=== PATIENT | female | born 1990 | race Two or more races ===

== ENCOUNTER 2019-03-18 07:57 | Inpatient (IN) | payer SELFPAY ==
[2019-03-18] VITALS (7 sets, daily range): BP systolic 115–124; BP diastolic 66–90
[~2019-03-18] VITALS: Ht 162.6 cm; Wt 66.7 kg
[~2019-03-18 07:57] MED LIST: GLUCOPHAGE1000 MG ORAL
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
[2019-03-18] MEDS ORDERED: Ketorolac 30mg Inj IV ONE (08:15)
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
--- NOTE | 2019-03-18 08:56 | Diagnostic Imaging Report ---
Indication: Headache and trauma Technique: Contiguous 5 mm thick transaxial imaging of the head obtained in a Siemens Sensation [address] scanner. Soft tissue and bone windows generated. Automatic Exposure Control was utilized. Total Dose length Product (DLP): [address] Dose Index Volume (CTDIvol): 70.38,28.19 mGy Comparison: none Findings: The size and configuration of the cortical sulci, basal cisterns, and ventricles are within normal limits for age. There is no mass effect, midline shift, or edema identified. There is no evidence of acute hemorrhage or abnormal intra-axial or extra-axial fluid collections. There is a frontal and facial soft tissue swelling. Correlate clinically. Maxillofacial CT was also done. Impression: No mass effect, edema or acute bleed. The CT scanner at [facility] is accredited by the [employer] and the scans are performed using dose optimization techniques as appropriate to a performed exam including Automatic Exposure control.
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
--- NOTE | 2019-03-18 09:20 | NUR ---
ED Nurse Note: pt voiding on bedpan urine sent. toradol held pending hcg results.
[2019-03-18 09:43] LABS: HEMOGLOBIN 11.5 G/DL (12.0-16.0); MEAN CORPUSCULAR VOLUME 86 FL (80-99); PLATELET COUNT 443 K/UL (150-450); RED BLOOD COUNT 3.98 M/UL (4.20-5.40); RED CELL DISTRIBUTION WIDTH 12.8 % (11.6-14.8)
[2019-03-18 09:47] LABS: ANION GAP 17 mmol/L (5-15); BLOOD UREA NITROGEN 27 mg/dL (7-18); CALCIUM 9.8 MG/DL (8.5-10.1); CARBON DIOXIDE 22 MMOL/L (21-32); CHLORIDE 94 MMOL/L (98-107); CREATININE 1.1 MG/DL (0.55-1.30); POTASSIUM 3.2 MMOL/L (3.5-5.1); SODIUM 132 MMOL/L (136-145)
--- NOTE | 2019-03-18 09:52 | NUR ---
ED Nurse Note: pt medicated after neg hcg test. master automotive technician here to finish rad studies. pt sleeping with even reg resp. awakens easily to verbal stimuli
--- NOTE | 2019-03-18 10:30 | NUR ---
ED Nurse Note: lactic acid sent and bld cx x2 sent. no new s/s sleeping in room with even resp.
[2019-03-18] MEDS ORDERED: cefTRIAXone 1 GM in NS 55 ML IVPB ONE (10:45)
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
--- NOTE | 2019-03-18 12:19 | Diagnostic Imaging Report ---
Indication: Dyspnea Comparison: None A single view chest radiograph was obtained. Findings: Cardiomediastinal appearance is within normal limits for age. The lungs are clear. Pulmonary vascularity is appropriate. The diaphragmatic contour is smooth and costophrenic angles are sharp. No pleural effusions are identified. The bones are unremarkable. Impression: No acute findings
--- NOTE | 2019-03-18 13:00 | NUR ---
ED Nurse Note: dr zamudio here to eval pt. pt awakes to verbal stimuli and then back to sleep with even reg resp. no changes in mental status. vss
[2019-03-18 13:41] LABS: APPEARANCE,URINE CLEAR; BILIRUBIN, URINE NEGATIVE (NEGATIVE); COLOR,URINE PALE YELLOW; GLUCOSE, URINE (UA) 4+ (NEGATIVE); KETONES,URINE 3+ (NEGATIVE); LEUKOCYTE ESTERASE ,URINE NEGATIVE (NEGATIVE); NITRITE,URINE NEGATIVE (NEGATIVE); PH,URINE 6.5 (4.5-8.0); PROTEIN,URINE 3+ (NEGATIVE); UROBILINOGEN,URINE NORMAL MG/DL (0.0-1.0)
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
--- NOTE | 2019-03-18 14:24 | NUR ---
ED Nurse Note: pt prepared for telemtry admission. remains a/ox4 when awakened, cooperative with care. admisssion swabs sent as per protocol with hi risk population.
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
--- NOTE | 2019-03-18 15:00 | NUR ---
NURSE NOTES: Attempted to contact Dr. Bautista.
--- NOTE | 2019-03-18 15:30 | NUR ---
NURSE NOTES: Contact Dr. Ramsay. Dr. Ramsay is aware and orders will be placed.
--- NOTE | 2019-03-18 15:30 | NUR ---
NURSE NOTES: Notify Dr. Ramsay in patient's heart rate is 120s. Received an order. Dr. Ramsay is aware.
[2019-03-18] MEDS: Morphine Sulfate 2mg/ml Inj(IV/IM USE ONLY) IVP PRN ×2 (15:43→19:52)
[2019-03-18] MEDS ORDERED: Nitroglycerin Subl 0.4mg tab SL PRN (15:45)
[2019-03-18] MEDS ORDERED: Miralax 17gm pkt ORAL PRN (15:45)
[2019-03-18] MEDS ORDERED: Albuterol/Ipratropium 3ml neb HHN PRN (15:45)
[2019-03-18] MEDS ORDERED: Vancomycin 1.25gm Premix IVPB ONE (16:30)
[2019-03-18] MEDS: NovoLOG Insulin Flexpen SUBQ SCH ×2 (17:43→21:27)
--- NOTE | 2019-03-18 19:45 | NUR ---
HAND-OFF: Report given to ROMY Heredia. Patient is resting in bed. Endorsed about the potassium 3.2 and to f/u with Dr. Ramsay.
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
[2019-03-18] MEDS: Heparin 5000 units/ml inj SUBQ SCH (21:00)
[2019-03-18] MEDS: Cefepime HCl 2 GM in D5W 110 ML IV SCH (21:21)
[2019-03-19] VITALS: BP 129/82
--- NOTE | 2019-03-19 | NUR ---
NURSE NOTES: pt sleeping. no change in condition. no s/s of pain. will continue to monitor for any change in condition.
[2019-03-19] MEDS: Morphine Sulfate 2mg/ml Inj(IV/IM USE ONLY) IVP PRN ×5 (01:59→21:04)
[2019-03-19 04:00] VITALS: BP 116/73
[2019-03-19] MEDS ORDERED: Vancomycin 1 GM in D5W 275 ML IVPB SCH (04:00)
--- NOTE | 2019-03-19 04:00 | NUR ---
NURSE NOTES: pt sleeping, no change in condition. will continue to monitor for any change in condition.
[2019-03-19] MEDS: NovoLOG Insulin Flexpen SUBQ SCH ×4 (05:47→22:18)
--- NOTE | 2019-03-19 06:40 | NUR ---
NURSE NOTES: pt remains stable, no change in condition. bed locked and lowest position, bedside rail up x 2. call light and personal belongings within pt's reach. will endorse plan of care to incoming nurse.
[2019-03-19 07:20] LABS: HEMATOCRIT 27.2 % (37.0-47.0); HEMOGLOBIN 9.2 G/DL (12.0-16.0); MEAN CORPUSCULAR VOLUME 85 FL (80-99); PLATELET COUNT 331 K/UL (150-450); RED CELL DISTRIBUTION WIDTH 13.1 % (11.6-14.8); WHITE BLOOD COUNT 20.4 K/UL (4.8-10.8)
--- NOTE | 2019-03-19 07:28 | NUR ---
NURSE NOTES: Report received from ROMY Heredia. Patient sleeping, easily awakened by name. In RA denies SOB Facial swelling noted. Unable to open both eyes at this time. Able to raise hands. Will continue to monitor. Bed on lowest position, side rails upx2, brakes engaged. Call light within easy reach.
--- NOTE | 2019-03-19 07:47 | NUR ---
HAND-OFF: Report given to ROMY Mcdermott.
[2019-03-19 08:00] VITALS: BP 121/74
[2019-03-19 08:03] LABS: ALANINE AMINOTRANSFERASE 36 U/L (12-78); ALBUMIN 1.8 G/DL (3.4-5.0); ALBUMIN/GLOBULIN RATIO 0.4 (1.0-2.7); ALKALINE PHOSPHATASE 136 U/L (46-116); ANION GAP 12 mmol/L (5-15); ASPARTATE AMINO TRANSFERASE 40 U/L (15-37); BILIRUBIN,TOTAL 0.8 MG/DL (0.2-1.0); BLOOD UREA NITROGEN 18 mg/dL (7-18); CALCIUM 8.3 MG/DL (8.5-10.1); CARBON DIOXIDE 22 MMOL/L (21-32); CHLORIDE 99 MMOL/L (98-107); CREATININE 0.8 MG/DL (0.55-1.30); POTASSIUM 2.9 MMOL/L (3.5-5.1); SODIUM 133 MMOL/L (136-145)
--- NOTE | 2019-03-19 08:45 | NUR ---
NURSE NOTES: Refused to open eyes. Unable to access.
[2019-03-19] MEDS: Heparin 5000 units/ml inj SUBQ SCH ×2 (09:00→21:02)
[2019-03-19] MEDS: Cefepime HCl 2 GM in D5W 110 ML IV SCH (09:12)
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
--- NOTE | 2019-03-19 10:10 | NUR ---
NURSE NOTES: Helped to the restroom. Was able to walk with supervision and guidance. Not opening eyes yet. Cleaned own eyes with warm water. Still insists opening eyes is a problem. "I can't open them! I tried..." Dr. Ramsay aware.
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
[2019-03-19 12:00] VITALS: BP 131/83
--- NOTE | 2019-03-19 12:10 | NUR ---
[facility]ACTICAL NURSING [facility] [employer] HEL[employer] SI:CEPHALOHEMATOMA . CELLULITIS . SEPSIS VS: BP 141/79, P 116, T 100.6, RR 20, SpO2 98 WBC 20.4, RBC 3.20, H&H 9.2/27.2, NA 133, K 2.9 IS:TYLENOL 650mg BACTRIM-DS 1tab MORPHINE SULFATE 2mg IVP NOVOLOG SUBQ HEPARIN SUBQ AMOXICILLIN 875mg MED/SURG STATUS
--- NOTE | 2019-03-19 15:01 | NUR ---
NURSE NOTES: Informed Dr. Ramsay regarding Pt's lab. No orders at this time.
[2019-03-19 16:00] VITALS: BP 141/79
--- NOTE | 2019-03-19 16:00 | History and Physical Report ---
DATE OF ADMISSION: 03/18/2019 DATE AND TIME SEEN: 03/19/2019 at 12 noon. CONSULTANTS: 1. Thiago King M.D. 2. Kevin Ramsay M.D. CHIEF COMPLAINT: Facial cellulitis and swelling. BRIEF HISTORY: This is a 28-year-old female, who lives at home, presents with one-day history of increased swelling, came to [facility], diagnosed with the above, admitted to telemetry for further care. Currently, sleeping in bed. No complaint. REVIEW OF SYSTEMS: No chest pain. No shortness of breath. No nausea. PAST MEDICAL HISTORY: Diabetes and anemia. PAST SURGICAL HISTORY: . ALLERGIES: Denies. MEDICATIONS: Include potassium, vancomycin, cefepime, albuterol, Tylenol, and morphine. SOCIAL HISTORY: Positive smoking. No alcohol. Positive methamphetamine use two days ago. PHYSICAL EXAMINATION: GENERAL: Calm in bed, oriented x2, in no acute distress. VITAL SIGNS: Temperature is 100, pulse 105, respirations 18, and blood pressure 121/74. CARDIOVASCULAR: No murmur. LUNGS: Distant and clear. ABDOMEN: Bowel sound positive. Nontender. Nondistended. EXTREMITIES: No cyanosis, clubbing, or edema. SKIN: Facial swelling noted. Bilateral face shows swelling, orbital eyelid almost shut. Slight redness around periorbital area. LABORATORY AND DIAGNOSTIC DATA: White count 20, hemoglobin and hematocrit 9.2/27, otherwise CBC normal. BMP shows sodium 133, potassium 2.9, glucose 308. Albumin 1.8. Urinalysis - 3+ protein, 4+ glucose. Urine tox positive for marijuana and amphetamine. ASSESSMENT: 1. Diabetes. 2. Hyperglycemia. 3. Facial cellulitis. 4. Leukocytosis. 5. Swelling. 6. Malnutrition. PLAN: 1. PT and dietary evaluation. 2. CBC and BMP in morning. 3. Antibiotics per Infectious Disease. 4. We will continue to follow the patient. Arjun Bautista D.O. DR: RENETTA JOB#: [id number] CC:
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
--- NOTE | 2019-03-19 19:25 | NUR ---
HAND-OFF: Report given to ROMY Mackey. Patient sleeping comfortably. Denies pain at this time.
--- NOTE | 2019-03-19 19:30 | NUR ---
NURSE NOTES: Received report from ROMY Ryan. Pt is awake and resting in bed. In no acute distress. IV line intact and patent. Bed in lowest position, call light within reach. Will continue plan of care.
[2019-03-19 20:00] VITALS: BP 131/86
--- NOTE | 2019-03-19 20:20 | NUR ---
NURSE NOTES: Received patient at 2020 from 2E Telemetry unit bed 206-2 to 4E bed 416-1. Report was given from ROMY Mackey. Patient verbalized with facial grimacing and crying that she is in pain. Patient is otherwise alert, awake, and verbally responsive to make her needs known. Patient's face is swollen, bruised, with some abrasions on the forehead. Patient is breathing rapidly but evenly without signs of respiratory distress, SOB, or discomfort. Pain will be managed as ordered as soon as the medical records are transferred to the unit. Meanwhile, patient is given reassurance to be given proper pain management as orders become available on the system. Bed is placed at the lowest level with alarms and brakes on. Side rails up x 2 for safety. Patient is offered non-pharmacological interventions such as distraction, rest, and positional change. Call light is placed within reach for any other assistance needed. Will continue to monitor.
--- NOTE | 2019-03-19 20:22 | NUR ---
TRANSFER TO FLOOR: Patient transferred to [address] [place] [address], room 416-1, per MD order. Report given to ROMY Fisher and ROMY Collazo. Belongings and medications given to RN. Pt in stable condition at the time of transfer.
[2019-03-19] MEDS ORDERED: Albuterol/Ipratropium 3ml neb HHN PRN (20:30)
[2019-03-19] MEDS ORDERED: Miralax 17gm pkt ORAL PRN (20:30)
[2019-03-19] MEDS ORDERED: Nitroglycerin Subl 0.4mg tab SL PRN (20:30)
[2019-03-19] MEDS ORDERED: Dextrose 50% 25ml Syringe IV PRN (20:30)
[2019-03-19] MEDS: Bactrim-DS 1 tab ORAL SCH (20:58)
[2019-03-19] MEDS: Augmentin 875mg Tab ORAL SCH (20:59)
[2019-03-19] MEDS ORDERED: Augmentin 875mg Tab ORAL SCH (21:00)
[2019-03-19] MEDS ORDERED: Bactrim-DS 1 tab ORAL SCH (21:00)
[2019-03-20] VITALS: BP 128/87
[2019-03-20] MEDS: Morphine Sulfate 2mg/ml Inj(IV/IM USE ONLY) IVP PRN ×5 (03:14→23:19)
--- NOTE | 2019-03-20 03:27 | NUR ---
NURSE NOTES: Patient is self-positioned on the bed with bed placed at the lowest level with alarm and brake on for safety. Side rails are up x 2. Patient is breathing unlabored and evenly without signs of respiratory complications or SOB. Patient's pain is addressed appropriately in timely manner. Other non-pharmacological measures are offered such as cooling measures, position change, distraction, and rest. Patient experienced episodes of elevated temperature. Pharmacological measures and non-pharmacological measures are applied to manage temperature. Patient tolerated all interventions well. Call light is placed within reach for any assistance needed. Will continue to monitor.
[2019-03-20 04:00] VITALS: BP 132/88
[2019-03-20] MEDS: NovoLOG Insulin Flexpen SUBQ SCH ×6 (06:15→20:19)
[2019-03-20 06:30] LABS: BASOPHILS % (AUTO) 0.8 % (0.0-2.0); EOSINOPHILS % (AUTO) 1.1 % (0.0-3.0); HEMATOCRIT 27.2 % (37.0-47.0); LYMPHOCYTES % (AUTO) 18.1 % (20.0-45.0); MEAN CORPUSCULAR VOLUME 85 FL (80-99); MONOCYTES % (AUTO) 5.7 % (1.0-10.0); NEUTROPHILS % (AUTO) 74.3 % (45.0-75.0); PLATELET COUNT 351 K/UL (150-450); RED BLOOD COUNT 3.21 M/UL (4.20-5.40); RED CELL DISTRIBUTION WIDTH 12.8 % (11.6-14.8); WHITE BLOOD COUNT 15.9 K/UL (4.8-10.8)
[2019-03-20 06:46] LABS: ANION GAP 10 mmol/L (5-15); BLOOD UREA NITROGEN 11 mg/dL (7-18); CALCIUM 8.7 MG/DL (8.5-10.1); CARBON DIOXIDE 26 MMOL/L (21-32); CHLORIDE 102 MMOL/L (98-107); CREATININE 0.9 MG/DL (0.55-1.30); POTASSIUM 3.4 MMOL/L (3.5-5.1); SODIUM 138 MMOL/L (136-145)
--- NOTE | 2019-03-20 06:53 | General Progress Note ---
Assessment/Plan Problem List: (1) Diabetes mellitus out of control ICD Codes: E11.65 - Type 2 diabetes mellitus with hyperglycemia SNOMED: 96160251, 853779582 (2) Sepsis ICD Codes: A41.9 - Sepsis, unspecified organism SNOMED: 59494700 (3) Cephalohematoma ICD Codes: P12.0 - Cephalhematoma due to injury SNOMED: 16168454 (4) Cellulitis ICD Codes: L03.90 - Cellulitis, unspecified SNOMED: 471744824 Assessment/Plan: add Levemir 18 units daily add Novolog 6 units ac tid continue NISS ac / hs Subjective Allergies: Coded Allergies: No Known Allergies (Unverified , 03/18/19) All Systems: reviewed and negative except above Subjective events noted interval notes reviewed Item Value Date Time Bedside Blood Glucose 342 mg/dl H 03/20/19 0630 Bedside Blood Glucose 297 mg/dl H 03/19/19 2218 Bedside Blood Glucose 335 mg/dl H 03/19/19 1707 Bedside Blood Glucose 265 mg/dl H 03/19/19 1215 Bedside Blood Glucose 309 mg/dl H 03/19/19 0630 Objective Last 24 Hour Vital Signs Date Time Temp Pulse Resp B/P (MAP) Pulse Ox O2 Delivery O2 Flow Rate FiO2 03/20/19 04:00 98.8 95 16 132/88 (103) 100 03/20/19 03:28 98 Room Air 21 03/20/19 00:00 99.2 113 16 128/87 (101) 98 03/19/19 23:02 99.2 03/19/19 21:00 Room Air 03/19/19 20:00 100.6 116 16 131/86 (101) 100 03/19/19 16:00 99.0 110 18 141/79 (99) 100 03/19/19 12:00 98.3 107 20 131/83 (99) 98 03/19/19 12:00 105 03/19/19 09:00 Room Air 03/19/19 08:00 106 03/19/19 08:00 100.0 105 18 121/74 (90) 100 03/19/19 07:44 97 Room Air 21 Intake and Output 03/19/19 03/20/19 18:59 06:59 Intake Total 600 ml Output Total 400 ml Balance 200 ml Intake Oral 600 ml Output Urine Total 400 ml # Voids 3 Laboratory Tests 03/20/19 05:15: White Blood Count 15.9H, Red Blood Count 3.21L, Hemoglobin 9.0L, Hematocrit 27.2L, Mean Corpuscular Volume 85, Mean Corpuscular Hemoglobin 28.0, Mean Corpuscular Hemoglobin Concent 33.1, Red Cell Distribution Width 12.8, Platelet Count 351, Mean Platelet Volume 6.4L, Neutrophils (%) (Auto) 74.3, Lymphocytes ( %) (Auto) 18.1L, Monocytes (%) (Auto) 5.7, Eosinophils (%) (Auto) 1.1, Basophils (%) (Auto) 0.8, Sodium Level 138, Potassium Level 3.4L, Chloride Level 102, Carbon Dioxide Level 26, Anion Gap 10, Blood Urea Nitrogen 11, Creatinine 0.9, Estimat Glomerular Filtration Rate > 60, Glucose Level 315H, Calcium Level 8.7 Height (Feet): 5 Height (Inches): 4.00 Weight (Pounds): 147 General Appearance: no apparent distress Cardiovascular: normal rate Respiratory/Chest: lungs clear Abdomen: normal bowel sounds Pelvis: normal external exam Objective Current Medications Medications (Trade) Dose Ordered Sig/Jazmyn Route PRN Reason Start Time Stop Time Status Last Admin Dose Admin Acetaminophen (Tylenol) 650 mg Q4H PRN ORAL fever (temp>100.5F) 03/19/19 20:30 04/17/19 20:29 03/19/19 22:32 Albuterol/ Ipratropium (Albuterol/ Ipratropium) 3 ml Q4H PRN HHN Shortness of Breath 03/19/19 20:30 03/24/19 20:29 Amoxicillin/ Clavulanate Potassium (Augmentin) 875 mg EVERY 12 HOURS ORAL 03/19/19 21:00 03/26/19 20:59 03/19/19 20:59 Dextrose (Dextrose 50%) 25 ml Q30M PRN IV Hypoglycemia 03/19/19 20:30 04/18/19 20:27 Dextrose (Dextrose 50%) 50 ml Q30M PRN IV hypoglycemia 03/19/19 20:30 04/18/19 20:29 Heparin Sodium (Porcine) (Heparin 5000 units/ml) 5,000 units EVERY 12 HOURS SUBQ 03/19/19 21:00 7/24/19 20:59 03/19/19 21:02 Insulin Aspart (NovoLOG) BEFORE MEALS AND HS SUBQ 03/19/19 21:00 04/17/19 16:29 03/20/19 06:15 Morphine Sulfate (Morphine Sulfate) 2 mg Q4H PRN IVP Moderate Pain (Pain Scale 4-6) 03/19/19 21:00 03/26/19 20:59 03/20/19 03:14 Nitroglycerin (Ntg) 0.4 mg Q 5 MINS PRN SL Prn Chest Pain 03/19/19 20:30 04/17/19 15:44 Ondansetron HCl (Zofran) 4 mg Q6H PRN IVP Nausea & Vomiting 03/19/19 20:30 04/17/19 20:29 Polyethylene Glycol (Miralax) 17 gm DAILYPRN PRN ORAL Constipation 03/19/19 20:30 04/18/19 20:29 Temazepam (Restoril) 15 mg HSPRN PRN ORAL Insomnia 03/19/19 20:30 03/26/19 20:29 03/19/19 23:53 Trimethoprim/ Sulfamethoxazole (Bactrim-DS) 1 tab Q12HR ORAL 03/19/19 21:00 03/26/19 20:59 03/19/19 20:58 Macario Lovell MD Mar 20, 2019 06:53
--- NOTE | 2019-03-20 07:19 | NUR ---
HAND-OFF: Report given to ROMY Aquino. Patient in stable condition.
--- NOTE | 2019-03-20 07:29 | NUR ---
NURSE NOTES: received report from ROMY Collazo&ROMY Fisher. patient in bed. A&O, verbally responsive. no respiratory distress noted. c/o pain on face and head. IV on RH intact. swollen eyes. no fever at this time. bed in the lowest position. call light within reach. alarm on. will provide plan of care.
[2019-03-20] MEDS: Bactrim-DS 1 tab ORAL SCH ×2 (09:21→20:14)
[2019-03-20] MEDS: Augmentin 875mg Tab ORAL SCH ×2 (09:21→20:13)
[2019-03-20] MEDS: Heparin 5000 units/ml inj SUBQ SCH ×2 (09:27→20:17)
[2019-03-20] MEDS: Levemir Flexpen SUBQ SCH (09:36)
--- NOTE | 2019-03-20 10:43 | Pulmonology Progress Note ---
Assessment/Plan Problems: (1) Cephalohematoma (2) Cellulitis Assessment/Plan symptomatic treatment abx as per ID pt still cant open her eyes. Subjective ROS Limited/Unobtainable: No Constitutional: Reports: no symptoms HEENT: Repors: no symptoms Allergies: Coded Allergies: No Known Allergies (Unverified , 03/18/19) Objective Last 24 Hour Vital Signs Date Time Temp Pulse Resp B/P (MAP) Pulse Ox O2 Delivery O2 Flow Rate FiO2 03/20/19 04:00 98.8 95 16 132/88 (103) 100 03/20/19 03:28 98 Room Air 21 03/20/19 00:00 99.2 113 16 128/87 (101) 98 03/19/19 23:02 99.2 03/19/19 21:00 Room Air 03/19/19 20:00 100.6 116 16 131/86 (101) 100 03/19/19 16:00 99.0 110 18 141/79 (99) 100 03/19/19 12:00 98.3 107 20 131/83 (99) 98 03/19/19 12:00 105 Intake and Output 03/19/19 03/20/19 18:59 06:59 Intake Total 600 ml Output Total 400 ml Balance 200 ml Intake Oral 600 ml Output Urine Total 400 ml # Voids 3 General Appearance: WD/WN HEENT: normocephalic, atraumatic Respiratory/Chest: chest wall non-tender, normal breath sounds Cardiovascular: normal peripheral pulses, regular rhythm Abdomen: normal bowel sounds, no organomegaly Genitourinary: normal external genitalia Extremities: no clubbing Skin: no lesions Microbiology Date/Time Source Procedure Growth Status 03/18/19 10:30 Blood Blood Culture - Preliminary NO GROWTH AFTER 24 HOURS Resulted 03/18/19 10:15 Blood Blood Culture - Preliminary NO GROWTH AFTER 24 HOURS Resulted 03/18/19 14:09 Nasal Nares MRSA Culture - Final NO METHICILLIN RESISTANT STAPH AUREUS... Complete 03/18/19 14:09 Rectal Mucosa VRE Culture - Final NO VANCOMYCIN RESISTANT ENTEROCOCCUS ... Complete 03/18/19 14:09 Rectal Mucosa - Final NO CARBAPENEM-RESISTANT ENTEROBACTERI... Complete Laboratory Tests 03/20/19 05:15: White Blood Count 15.9H, Red Blood Count 3.21L, Hemoglobin 9.0L, Hematocrit 27.2L, Mean Corpuscular Volume 85, Mean Corpuscular Hemoglobin 28.0, Mean Corpuscular Hemoglobin Concent 33.1, Red Cell Distribution Width 12.8, Platelet Count 351, Mean Platelet Volume 6.4L, Neutrophils (%) (Auto) 74.3, Lymphocytes ( %) (Auto) 18.1L, Monocytes (%) (Auto) 5.7, Eosinophils (%) (Auto) 1.1, Basophils (%) (Auto) 0.8, Sodium Level 138, Potassium Level 3.4L, Chloride Level 102, Carbon Dioxide Level 26, Anion Gap 10, Blood Urea Nitrogen 11, Creatinine 0.9, Estimat Glomerular Filtration Rate > 60, Glucose Level 315H, Calcium Level 8.7 Current Medications Medications (Trade) Dose Ordered Sig/Jazmyn Route PRN Reason Start Time Stop Time Status Last Admin Dose Admin Acetaminophen (Tylenol) 650 mg Q4H PRN ORAL fever (temp>100.5F) 03/19/19 20:30 04/17/19 20:29 03/20/19 09:34 Albuterol/ Ipratropium (Albuterol/ Ipratropium) 3 ml Q4H PRN HHN Shortness of Breath 03/19/19 20:30 03/24/19 20:29 Amoxicillin/ Clavulanate Potassium (Augmentin) 875 mg EVERY 12 HOURS ORAL 03/19/19 21:00 03/26/19 20:59 03/20/19 09:21 Dextrose (Dextrose 50%) 25 ml Q30M PRN IV Hypoglycemia 03/20/19 07:00 04/19/19 06:59 Dextrose (Dextrose 50%) 50 ml Q30M PRN IV Hypoglycemia 03/20/19 07:00 04/19/19 06:59 Heparin Sodium (Porcine) (Heparin 5000 units/ml) 5,000 units EVERY 12 HOURS SUBQ 03/19/19 21:00 04/17/19 20:59 03/20/19 09:27 Insulin Aspart (NovoLOG) BEFORE MEALS AND HS SUBQ 03/19/19 21:00 04/17/19 16:29 03/20/19 06:15 Insulin Aspart (NovoLOG) 6 units NOVOTIAC SUBQ 03/20/19 11:50 04/19/19 11:49 Insulin Detemir (Levemir) 18 units DAILY SUBQ 03/20/19 09:00 04/19/19 08:59 03/20/19 09:36 Morphine Sulfate (Morphine Sulfate) 2 mg Q4H PRN IVP Moderate Pain (Pain Scale 4-6) 03/19/19 21:00 03/26/19 20:59 03/20/19 07:37 Nitroglycerin (Ntg) 0.4 mg Q 5 MINS PRN SL Prn Chest Pain 03/19/19 20:30 04/17/19 15:44 Ondansetron HCl (Zofran) 4 mg Q6H PRN IVP Nausea & Vomiting 03/19/19 20:30 04/17/19 20:29 Polyethylene Glycol (Miralax) 17 gm DAILYPRN PRN ORAL Constipation 03/19/19 20:30 04/18/19 20:29 Temazepam (Restoril) 15 mg HSPRN PRN ORAL Insomnia 03/19/19 20:30 03/26/19 20:29 03/19/19 23:53 Trimethoprim/ Sulfamethoxazole (Bactrim-DS) 1 tab Q12HR ORAL 03/19/19 21:00 03/26/19 20:59 03/20/19 09:21 Kevin Ramsay MD Mar 20, 2019 10:43
[2019-03-20 12:00] VITALS: BP 145/97
--- NOTE | 2019-03-20 12:16 | NUR ---
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 CELLULITIS . SEPSIS VS: BP 145/97, P 113, T 99.6, RR 20, SpO2 96 WBC 15.9, RBC 3.21, H&H 9.0/27.2, K 3.4, GLUCOSE 315 IS:LEVEMIR SUBQ TYLENOL 650mg BACTRIM-DS 1tab MORPHINE SULFATE 2mg IVP NOVOLOG SUBQ HEPARIN SUBQ AMOXICILLIN 875mg MED/SURG STATUS
--- NOTE | 2019-03-20 14:29 | General Progress Note ---
Assessment/Plan Problem List: (1) Cellulitis ICD Codes: L03.90 - Cellulitis, unspecified SNOMED: 170919708 (2) Sepsis ICD Codes: A41.9 - Sepsis, unspecified organism SNOMED: 81214872 (3) Diabetes mellitus out of control ICD Codes: E11.65 - Type 2 diabetes mellitus with hyperglycemia SNOMED: 29329064, 672896469 Status: unchanged Assessment/Plan: abx per id cbc bmop an dc plan Subjective Constitutional: Reports: weakness Allergies: Coded Allergies: No Known Allergies (Unverified , 03/18/19) All Systems: reviewed and negative except above Subjective sitting calm Objective Last 24 Hour Vital Signs Date Time Temp Pulse Resp B/P (MAP) Pulse Ox O2 Delivery O2 Flow Rate FiO2 03/20/19 12:00 99.6 103 20 145/97 (113) 96 03/20/19 09:00 Room Air 03/20/19 06:50 99 Room Air 21 03/20/19 04:00 98.8 95 16 132/88 (103) 100 03/20/19 03:28 98 Room Air 21 03/20/19 00:00 99.2 113 16 128/87 (101) 98 03/19/19 23:02 99.2 03/19/19 21:00 Room Air 03/19/19 20:00 100.6 116 16 131/86 (101) 100 03/19/19 16:00 99.0 110 18 141/79 (99) 100 Intake and Output 03/19/19 03/20/19 19:00 07:00 Intake Total 600 ml Output Total 400 ml Balance 200 ml Intake Oral 600 ml Output Urine Total 400 ml # Voids 3 Laboratory Tests 03/20/19 05:15: White Blood Count 15.9H, Red Blood Count 3.21L, Hemoglobin 9.0L, Hematocrit 27.2L, Mean Corpuscular Volume 85, Mean Corpuscular Hemoglobin 28.0, Mean Corpuscular Hemoglobin Concent 33.1, Red Cell Distribution Width 12.8, Platelet Count 351, Mean Platelet Volume 6.4L, Neutrophils (%) (Auto) 74.3, Lymphocytes ( %) (Auto) 18.1L, Monocytes (%) (Auto) 5.7, Eosinophils (%) (Auto) 1.1, Basophils (%) (Auto) 0.8, Sodium Level 138, Potassium Level 3.4L, Chloride Level 102, Carbon Dioxide Level 26, Anion Gap 10, Blood Urea Nitrogen 11, Creatinine 0.9, Estimat Glomerular Filtration Rate > 60, Glucose Level 315H, Calcium Level 8.7 Height (Feet): 5 Height (Inches): 4.00 Weight (Pounds): 147 General Appearance: lethargic EENT: normal ENT inspection Neck: normal alignment Cardiovascular: normal peripheral pulses, normal rate, regular rhythm Respiratory/Chest: chest wall non-tender, lungs clear, normal breath sounds Abdomen: normal bowel sounds, non tender, soft Extremities: normal inspection Edema: no edema noted Arm (L), no edema noted Arm (R), no edema noted Leg (L), no edema noted Leg (R), no edema noted Pedal (L), no edema noted Pedal (R), no edema noted Generalized Neurologic: responsive, motor weakness Skin: normal pigmentation, warm/dry Objective b/l eye lid swollen sl red Arjun Bautista DO Mar 20, 2019 14:29
--- NOTE | 2019-03-20 15:14 | NUR ---
NURSE NOTES: CLEARED BY [facility], AWAITING RX FROM [facility] Addendum: 03/20/19 at 1515 by KAVEH SANCHES RN CORRECTION: CLEARED BY [facility] , AWAITING RX FROM [facility]
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
[2019-03-20] MEDS ORDERED: BACTRIM-DS1 EA ORAL (15:29)
[2019-03-20] MEDS ORDERED: AUGMENTIN 875-1 EAC1 ORAL (15:29)
--- NOTE | 2019-03-20 15:57 | NUR ---
NURSE NOTES: Patient has tyl 650mg prn for fever only. notified dr. zamudio and received order tyl 650mg po pnn q 4hrs for fever(>100.5) and mild pain. order noted and carried out.
--- NOTE | 2019-03-20 15:59 | NUR ---
NURSE NOTES: patient cleared by consult for discharge and robb kirk made order for discharge. patient is homeless, she mentioned no place to go. patient has both swollen eyes and can/t see well. notified dr. zamudio and waiting further order.
[2019-03-20 16:00] VITALS: BP 124/83
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
--- NOTE | 2019-03-20 16:45 | NUR ---
NURSE NOTES: received order from Dr. zamudio soc service to place and apply for emergency mcal. order noted and carried out
--- NOTE | 2019-03-20 19:18 | NUR ---
HAND-OFF: Report given to ROMY Shi.
--- NOTE | 2019-03-20 19:20 | NUR ---
NURSE NOTES: RECEIVED PT FROM ROMY BENAVIDEZ. PT IS AWAKE, AAOX4, ON ROOM AIR, UNLABORED BREATHING. PT C/O 9/10 PAIN ON FACE. SWELLING AND REDNESS NOTED ON BILATERAL EYELIDS, FACE AND AND FOREHEAD. BRUISING AND SCARRING NOTED ON RIGHT SIDE OF FOREHEAD. IV ON RIGHT HAND 20G IS INTACT AND PATENT. REENFORCE TEACHING ON FALL PRECAUTION, AND ENCOURAGE PT TO USE CALL LIGHT WHEN AMBULATING TO RESTROOM DUE TO LIMITING EYESIGHT FROM SWOLLEN EYELIDS. PT VERBALIZED UNDERSTANDING. ALL LIGHTS INSIDE ROOM AND INSIDE RESTROOM ARE TURN ON. BED IS LOCKED AT THE LOWEST POSITION, BED ALARMS ACTIVE, SIDE RAILS UP X2 AND CALL LIGHT IS WITHIN REACH. WILL CONTINUE TO MONITOR PT AND FOLLOW UP WITH PRN PAIN MEDICATION.
[2019-03-20 20:00] VITALS: BP 136/90
[2019-03-21] VITALS (7 sets, daily range): BP systolic 123–141; BP diastolic 82–95
[2019-03-21] MEDS: Morphine Sulfate 2mg/ml Inj(IV/IM USE ONLY) IVP PRN ×5 (04:18→20:57)
[2019-03-21] MEDS: NovoLOG Insulin Flexpen SUBQ SCH ×7 (06:29→21:06)
--- NOTE | 2019-03-21 07:21 | NUR ---
HAND-OFF: Report given to ROMY BENAVIDEZ.
--- NOTE | 2019-03-21 07:23 | NUR ---
NURSE NOTES: received report from Yuridia,RN. patient in bed. sleeping. no respiratory distress noted on room air. IV on RH intact. fall precaution. BRP with assist. eye swelling still noted. bed in the lowest position. call light within reach. alarm on. will provide plan of care.
[2019-03-21 08:34] LABS: BASOPHILS % (AUTO) 1.1 % (0.0-2.0); EOSINOPHILS % (AUTO) 2.4 % (0.0-3.0); HEMOGLOBIN 9.2 G/DL (12.0-16.0); MEAN CORPUSCULAR VOLUME 85 FL (80-99); MONOCYTES % (AUTO) 6.8 % (1.0-10.0); NEUTROPHILS % (AUTO) 58.6 % (45.0-75.0); PLATELET COUNT 404 K/UL (150-450); RED CELL DISTRIBUTION WIDTH 12.6 % (11.6-14.8)
[2019-03-21] MEDS: Augmentin 875mg Tab ORAL SCH ×2 (08:40→20:56)
[2019-03-21] MEDS: Bactrim-DS 1 tab ORAL SCH ×2 (08:40→20:56)
[2019-03-21] MEDS: Heparin 5000 units/ml inj SUBQ SCH ×2 (08:42→21:05)
[2019-03-21] MEDS: Levemir Flexpen SUBQ SCH (08:43)
[2019-03-21 09:10] LABS: ANION GAP 9 mmol/L (5-15); BLOOD UREA NITROGEN 10 mg/dL (7-18); CALCIUM 8.7 MG/DL (8.5-10.1); CARBON DIOXIDE 26 MMOL/L (21-32); CHLORIDE 100 MMOL/L (98-107); CREATININE 0.8 MG/DL (0.55-1.30); POTASSIUM 3.4 MMOL/L (3.5-5.1); SODIUM 135 MMOL/L (136-145)
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
--- NOTE | 2019-03-21 12:38 | Diagnostic Imaging Report ---
APPROVED REPORT CPT Code: 54046 Present Symptoms Lower Extremity Pain: Bilateral BILATERAL: Imaging reveals a patent deep venous system bilaterally. There is no evidence of thrombus within the common femoral, superficial femoral, popliteal or tibial segments. The greater saphenous veins are within normal limits. Doppler indicates normal spontaneous flow within these segments.
--- NOTE | 2019-03-21 13:28 | Pulmonology Progress Note ---
Assessment/Plan Problems: (1) Cephalohematoma (2) Cellulitis Assessment/Plan feeling better in a mean spirited mood symptomatic treatment abx as per ID pt still cant open her eyes. Subjective ROS Limited/Unobtainable: No Constitutional: Reports: no symptoms Respiratory: Reports: no symptoms Allergies: Coded Allergies: No Known Allergies (Unverified , 03/18/19) Objective Last 24 Hour Vital Signs Date Time Temp Pulse Resp B/P (MAP) Pulse Ox O2 Delivery O2 Flow Rate FiO2 03/21/19 12:00 98.8 94 20 133/82 (99) 99 03/21/19 09:00 Room Air 03/21/19 08:31 98 Room Air 21 03/21/19 08:00 97.7 93 19 123/88 (100) 98 03/21/19 04:00 99.2 91 20 123/88 (100) 99 03/21/19 00:00 99.1 94 16 132/89 (103) 97 03/20/19 21:00 Room Air 03/20/19 20:00 99.9 99 20 136/90 (105) 98 03/20/19 19:44 97 Room Air 21 03/20/19 16:00 97.5 105 18 124/83 (97) 97 Intake and Output 03/20/19 03/21/19 18:59 06:59 Intake Total 300 ml Balance 300 ml Intake Oral 300 ml # Voids 3 3 General Appearance: WD/WN HEENT: normocephalic, atraumatic Respiratory/Chest: chest wall non-tender, lungs clear Breasts: no masses Cardiovascular: normal peripheral pulses Abdomen: normal bowel sounds, soft, non tender Genitourinary: normal external genitalia Microbiology Date/Time Source Procedure Growth Status 03/18/19 14:09 Nasal Nares MRSA Culture - Final NO METHICILLIN RESISTANT STAPH AUREUS... Complete 03/18/19 14:09 Rectal Mucosa VRE Culture - Final NO VANCOMYCIN RESISTANT ENTEROCOCCUS ... Complete 03/18/19 14:09 Rectal Mucosa - Final NO CARBAPENEM-RESISTANT ENTEROBACTERI... Complete Laboratory Tests 03/21/19 07:00: White Blood Count 11.0H, Red Blood Count 3.30L, Hemoglobin 9.2L, Hematocrit 28.0L, Mean Corpuscular Volume 85, Mean Corpuscular Hemoglobin 28.0, Mean Corpuscular Hemoglobin Concent 33.1, Red Cell Distribution Width 12.6, Platelet Count 404, Mean Platelet Volume 5.8L, Neutrophils (%) (Auto) 58.6, Lymphocytes ( %) (Auto) 31.0, Monocytes (%) (Auto) 6.8, Eosinophils (%) (Auto) 2.4, Basophils (%) (Auto) 1.1, Sodium Level 135L, Potassium Level 3.4L, Chloride Level 100, Carbon Dioxide Level 26, Anion Gap 9, Blood Urea Nitrogen 10, Creatinine 0.8, Estimat Glomerular Filtration Rate > 60, Glucose Level 227H, Calcium Level 8.7 Current Medications Medications (Trade) Dose Ordered Sig/Jazmyn Route PRN Reason Start Time Stop Time Status Last Admin Dose Admin Acetaminophen (Tylenol) 650 mg Q4H PRN ORAL fever (temp>100.5F), Mild pain 03/20/19 16:30 04/17/19 20:29 03/21/19 06:53 Albuterol/ Ipratropium (Albuterol/ Ipratropium) 3 ml Q4H PRN HHN Shortness of Breath 03/19/19 20:30 03/24/19 20:29 Amoxicillin/ Clavulanate Potassium (Augmentin) 875 mg EVERY 12 HOURS ORAL 03/19/19 21:00 03/26/19 20:59 03/21/19 08:40 Dextrose (Dextrose 50%) 25 ml Q30M PRN IV Hypoglycemia 03/20/19 07:00 04/19/19 06:59 Dextrose (Dextrose 50%) 50 ml Q30M PRN IV Hypoglycemia 03/20/19 07:00 04/19/19 06:59 Heparin Sodium (Porcine) (Heparin 5000 units/ml) 5,000 units EVERY 12 HOURS SUBQ 03/19/19 21:00 04/17/19 20:59 03/21/19 08:42 Insulin Aspart (NovoLOG) BEFORE MEALS AND HS SUBQ 03/19/19 21:00 04/17/19 16:29 03/21/19 12:06 Insulin Aspart (NovoLOG) 6 units NOVOTIAC SUBQ 03/20/19 11:50 04/19/19 11:49 03/21/19 12:07 Insulin Detemir (Levemir) 18 units DAILY SUBQ 03/20/19 09:00 04/19/19 08:59 03/21/19 08:43 Morphine Sulfate (Morphine Sulfate) 2 mg Q4H PRN IVP Moderate Pain (Pain Scale 4-6) 03/19/19 21:00 03/26/19 20:59 03/21/19 13:00 Nitroglycerin (Ntg) 0.4 mg Q 5 MINS PRN SL Prn Chest Pain 03/19/19 20:30 04/17/19 15:44 Ondansetron HCl (Zofran) 4 mg Q6H PRN IVP Nausea & Vomiting 03/19/19 20:30 04/17/19 20:29 Polyethylene Glycol (Miralax) 17 gm DAILYPRN PRN ORAL Constipation 03/19/19 20:30 04/18/19 20:29 Temazepam (Restoril) 15 mg HSPRN PRN ORAL Insomnia 03/19/19 20:30 03/26/19 20:29 03/19/19 23:53 Trimethoprim/ Sulfamethoxazole (Bactrim-DS) 1 tab Q12HR ORAL 03/19/19 21:00 03/26/19 20:59 03/21/19 08:40 Kevin Ramsay MD Mar 21, 2019 13:28
--- NOTE | 2019-03-21 14:36 | General Progress Note ---
Assessment/Plan Problem List: (1) Cellulitis ICD Codes: L03.90 - Cellulitis, unspecified SNOMED: 615559388 (2) Sepsis ICD Codes: A41.9 - Sepsis, unspecified organism SNOMED: 67219424 (3) Diabetes mellitus out of control ICD Codes: E11.65 - Type 2 diabetes mellitus with hyperglycemia SNOMED: 96954020, 389613945 Status: stable, progressing Assessment/Plan: abx per id cbc bmp am dc plan Subjective Constitutional: Reports: weakness Allergies: Coded Allergies: No Known Allergies (Unverified , 03/18/19) All Systems: reviewed and negative except above Subjective sitting calm Objective Last 24 Hour Vital Signs Date Time Temp Pulse Resp B/P (MAP) Pulse Ox O2 Delivery O2 Flow Rate FiO2 03/21/19 12:00 98.8 94 20 133/82 (99) 99 03/21/19 09:00 Room Air 03/21/19 08:31 98 Room Air 21 03/21/19 08:00 97.7 93 19 123/88 (100) 98 03/21/19 04:00 99.2 91 20 123/88 (100) 99 03/21/19 00:00 99.1 94 16 132/89 (103) 97 03/20/19 21:00 Room Air 03/20/19 20:00 99.9 99 20 136/90 (105) 98 03/20/19 19:44 97 Room Air 21 03/20/19 16:00 97.5 105 18 124/83 (97) 97 Intake and Output 03/20/19 03/21/19 19:00 07:00 Intake Total 300 ml Balance 300 ml Intake Oral 300 ml # Voids 3 3 Laboratory Tests 03/21/19 07:00: White Blood Count 11.0H, Red Blood Count 3.30L, Hemoglobin 9.2L, Hematocrit 28.0L, Mean Corpuscular Volume 85, Mean Corpuscular Hemoglobin 28.0, Mean Corpuscular Hemoglobin Concent 33.1, Red Cell Distribution Width 12.6, Platelet Count 404, Mean Platelet Volume 5.8L, Neutrophils (%) (Auto) 58.6, Lymphocytes ( %) (Auto) 31.0, Monocytes (%) (Auto) 6.8, Eosinophils (%) (Auto) 2.4, Basophils (%) (Auto) 1.1, Sodium Level 135L, Potassium Level 3.4L, Chloride Level 100, Carbon Dioxide Level 26, Anion Gap 9, Blood Urea Nitrogen 10, Creatinine 0.8, Estimat Glomerular Filtration Rate > 60, Glucose Level 227H, Calcium Level 8.7 Height (Feet): 5 Height (Inches): 4.00 Weight (Pounds): 147 General Appearance: alert EENT: normal ENT inspection Neck: normal alignment Cardiovascular: normal peripheral pulses, normal rate, regular rhythm Respiratory/Chest: chest wall non-tender, lungs clear, normal breath sounds Abdomen: normal bowel sounds, non tender, soft Extremities: normal inspection Edema: no edema noted Arm (L), no edema noted Arm (R), no edema noted Leg (L), no edema noted Leg (R), no edema noted Pedal (L), no edema noted Pedal (R), no edema noted Generalized Neurologic: responsive, motor weakness Skin: normal pigmentation, warm/dry Objective b/l eye lid swollen sl red sl improved Arjun Bautista DO Mar 21, 2019 14:36
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
--- NOTE | 2019-03-21 18:26 | General Progress Note ---
Assessment/Plan Problem List: (1) Diabetes mellitus out of control ICD Codes: E11.65 - Type 2 diabetes mellitus with hyperglycemia SNOMED: 52373710, 817063344 (2) Sepsis ICD Codes: A41.9 - Sepsis, unspecified organism SNOMED: 56480617 (3) Cephalohematoma ICD Codes: P12.0 - Cephalhematoma due to injury SNOMED: 51803106 (4) Cellulitis ICD Codes: L03.90 - Cellulitis, unspecified SNOMED: 734530234 Status: stable, progressing Assessment/Plan: continue Levemir 18 units daily continue Novolog 6 units ac tid continue NISS ac / hs prescription for diabetic meds and supplies left in chart Subjective ROS Limited/Unobtainable: Yes Allergies: Coded Allergies: No Known Allergies (Unverified , 03/18/19) Subjective events noted interval notes reviewed she refuses to communicate Item Value Date Time Bedside Blood Glucose 181 mg/dl H 03/21/19 1701 Bedside Blood Glucose 195 mg/dl H 03/21/19 1207 Bedside Blood Glucose 238 mg/dl H 03/21/19 0843 Bedside Blood Glucose 238 mg/dl H 03/21/19 0630 Bedside Blood Glucose 258 mg/dl H 03/20/19 2100 Bedside Blood Glucose 114 mg/dl 03/20/19 1710 Objective Last 24 Hour Vital Signs Date Time Temp Pulse Resp B/P (MAP) Pulse Ox O2 Delivery O2 Flow Rate FiO2 03/21/19 16:00 99.6 103 20 141/95 (110) 100 03/21/19 12:00 98.8 94 20 133/82 (99) 99 03/21/19 09:00 Room Air 03/21/19 08:31 98 Room Air 21 03/21/19 08:00 97.7 93 19 123/88 (100) 98 03/21/19 04:00 99.2 91 20 123/88 (100) 99 03/21/19 00:00 99.1 94 16 132/89 (103) 97 03/20/19 21:00 Room Air 03/20/19 20:00 99.9 99 20 136/90 (105) 98 03/20/19 19:44 97 Room Air 21 Intake and Output 03/20/19 03/21/19 19:00 07:00 Intake Total 300 ml Balance 300 ml Intake Oral 300 ml # Voids 3 3 Laboratory Tests 03/21/19 07:00: White Blood Count 11.0H, Red Blood Count 3.30L, Hemoglobin 9.2L, Hematocrit 28.0L, Mean Corpuscular Volume 85, Mean Corpuscular Hemoglobin 28.0, Mean Corpuscular Hemoglobin Concent 33.1, Red Cell Distribution Width 12.6, Platelet Count 404, Mean Platelet Volume 5.8L, Neutrophils (%) (Auto) 58.6, Lymphocytes ( %) (Auto) 31.0, Monocytes (%) (Auto) 6.8, Eosinophils (%) (Auto) 2.4, Basophils (%) (Auto) 1.1, Sodium Level 135L, Potassium Level 3.4L, Chloride Level 100, Carbon Dioxide Level 26, Anion Gap 9, Blood Urea Nitrogen 10, Creatinine 0.8, Estimat Glomerular Filtration Rate > 60, Glucose Level 227H, Calcium Level 8.7 Height (Feet): 5 Height (Inches): 4.00 Weight (Pounds): 147 General Appearance: no apparent distress Neck: normal alignment Cardiovascular: normal rate Respiratory/Chest: normal breath sounds Abdomen: normal bowel sounds Objective Current Medications Medications (Trade) Dose Ordered Sig/Jazmyn Route PRN Reason Start Time Stop Time Status Last Admin Dose Admin Acetaminophen (Tylenol) 650 mg Q4H PRN ORAL fever (temp>100.5F), Mild pain 03/20/19 16:30 04/17/19 20:29 03/21/19 06:53 Albuterol/ Ipratropium (Albuterol/ Ipratropium) 3 ml Q4H PRN HHN Shortness of Breath 03/19/19 20:30 03/24/19 20:29 Amoxicillin/ Clavulanate Potassium (Augmentin) 875 mg EVERY 12 HOURS ORAL 03/19/19 21:00 03/26/19 20:59 03/21/19 08:40 Dextrose (Dextrose 50%) 25 ml Q30M PRN IV Hypoglycemia 03/20/19 07:00 04/19/19 06:59 Dextrose (Dextrose 50%) 50 ml Q30M PRN IV Hypoglycemia 03/20/19 07:00 04/19/19 06:59 Heparin Sodium (Porcine) (Heparin 5000 units/ml) 5,000 units EVERY 12 HOURS SUBQ 03/19/19 21:00 04/17/19 20:59 03/21/19 08:42 Insulin Aspart (NovoLOG) BEFORE MEALS AND HS SUBQ 03/19/19 21:00 04/17/19 16:29 03/21/19 17:01 Insulin Aspart (NovoLOG) 6 units NOVOTIAC SUBQ 03/20/19 11:50 04/19/19 11:49 03/21/19 17:01 Insulin Detemir (Levemir) 18 units DAILY SUBQ 03/20/19 09:00 04/19/19 08:59 03/21/19 08:43 Morphine Sulfate (Morphine Sulfate) 2 mg Q4H PRN IVP Moderate Pain (Pain Scale 4-6) 03/19/19 21:00 03/26/19 20:59 03/21/19 16:57 Nitroglycerin (Ntg) 0.4 mg Q 5 MINS PRN SL Prn Chest Pain 03/19/19 20:30 04/17/19 15:44 Ondansetron HCl (Zofran) 4 mg Q6H PRN IVP Nausea & Vomiting 03/19/19 20:30 04/17/19 20:29 Polyethylene Glycol (Miralax) 17 gm DAILYPRN PRN ORAL Constipation 03/19/19 20:30 04/18/19 20:29 Temazepam (Restoril) 15 mg HSPRN PRN ORAL Insomnia 03/19/19 20:30 03/26/19 20:29 03/19/19 23:53 Trimethoprim/ Sulfamethoxazole (Bactrim-DS) 1 tab Q12HR ORAL 03/19/19 21:00 03/26/19 20:59 03/21/19 08:40 Macario Lovell MD Mar 21, 2019 18:26
--- NOTE | 2019-03-21 19:29 | NUR ---
HAND-OFF: Report given to Crow Clay.
--- NOTE | 2019-03-21 19:30 | NUR ---
NURSE NOTES: Patient received in bed, moaning d/t headache. Will administer pain medication when due, patient aware. Nonpharmacological intervention provided to patient. Decreased stimuli. Call light in reach, will monitor.
--- NOTE | 2019-03-21 22:40 | NUR ---
NURSE NOTES: Pt continues to moan and cry d/t her headache and inability to sleep. PRN restoril given. Contacted Dr. Bautista regarding unrelieved pain from morphine (ordered only for mod pain). MD ordered to call Dr. Ramsay. Contacted Dr. Ramsay and ordered dilaudid 1mg q4hr prn for severe pain. Orders noted and carried out.
[2019-03-22] MEDS: HYDROmorphone 1mg/ml Carpuject IVP PRN ×6 (01:20→23:02)
[2019-03-22 04:00] VITALS: BP 123/85
[2019-03-22] MEDS: NovoLOG Insulin Flexpen SUBQ SCH ×7 (06:16→20:50)
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
--- NOTE | 2019-03-22 07:13 | NUR ---
HAND-OFF: Report given to Giselle STANTON.
--- NOTE | 2019-03-22 07:51 | NUR ---
NURSE NOTES: Pt eating breakfast. Swelling on the face noted with scabs. pain level 4/10. No SOB. bed alarm on, call light within reach. will continue to monitor.
[2019-03-22 08:00] VITALS: BP 129/73
[2019-03-22] MEDS: Augmentin 875mg Tab ORAL SCH ×2 (08:29→20:47)
[2019-03-22] MEDS: Bactrim-DS 1 tab ORAL SCH ×2 (08:30→20:47)
[2019-03-22] MEDS: Heparin 5000 units/ml inj SUBQ SCH ×2 (08:33→20:49)
[2019-03-22] MEDS: Levemir Flexpen SUBQ SCH (08:33)
--- NOTE | 2019-03-22 08:34 | General Progress Note ---
Assessment/Plan Problem List: (1) Cellulitis ICD Codes: L03.90 - Cellulitis, unspecified SNOMED: 032295622 (2) Sepsis ICD Codes: A41.9 - Sepsis, unspecified organism SNOMED: 20967556 (3) Diabetes mellitus out of control ICD Codes: E11.65 - Type 2 diabetes mellitus with hyperglycemia SNOMED: 72672068, 071357519 Status: stable, progressing Assessment/Plan: abx per id cbc bmp am dc plan Subjective Constitutional: Reports: weakness Allergies: Coded Allergies: No Known Allergies (Unverified , 03/18/19) All Systems: reviewed and negative except above Subjective sitting calm Objective Last 24 Hour Vital Signs Date Time Temp Pulse Resp B/P (MAP) Pulse Ox O2 Delivery O2 Flow Rate FiO2 03/22/19 04:00 98.0 93 20 123/85 (98) 96 03/21/19 23:38 98.3 106 20 137/91 (106) 98 03/21/19 21:00 Room Air 03/21/19 20:00 98 20 98 Room Air 21 03/21/19 20:00 98 Room Air 21 03/21/19 20:00 98.0 106 20 141/89 (106) 100 03/21/19 16:00 99.6 103 20 141/95 (110) 100 03/21/19 12:00 98.8 94 20 133/82 (99) 99 03/21/19 09:00 Room Air Intake and Output 03/21/19 03/22/19 19:00 07:00 Intake Total 520 ml 240 ml Balance 520 ml 240 ml Intake Oral 520 ml 240 ml # Voids 3 Height (Feet): 5 Height (Inches): 4.00 Weight (Pounds): 147 General Appearance: alert EENT: normal ENT inspection Neck: normal alignment Cardiovascular: normal peripheral pulses, normal rate, regular rhythm Respiratory/Chest: chest wall non-tender, lungs clear, normal breath sounds Abdomen: normal bowel sounds, non tender, soft Extremities: normal inspection Edema: no edema noted Arm (L), no edema noted Arm (R), no edema noted Leg (L), no edema noted Leg (R), no edema noted Pedal (L), no edema noted Pedal (R), no edema noted Generalized Neurologic: responsive, motor weakness Skin: normal pigmentation, warm/dry Objective b/l eye lid swollen sl red sl improved Arjun Bautista DO Mar 22, 2019 08:34
[2019-03-22 10:08] LABS: BASOPHILS % (AUTO) 1.2 % (0.0-2.0); EOSINOPHILS % (AUTO) 1.9 % (0.0-3.0); HEMATOCRIT 27.2 % (37.0-47.0); HEMOGLOBIN 9.4 G/DL (12.0-16.0); LYMPHOCYTES % (AUTO) 24.3 % (20.0-45.0); MEAN CORPUSCULAR VOLUME 83 FL (80-99); MONOCYTES % (AUTO) 8.3 % (1.0-10.0); NEUTROPHILS % (AUTO) 64.4 % (45.0-75.0); PLATELET COUNT 538 K/UL (150-450); RED BLOOD COUNT 3.27 M/UL (4.20-5.40); RED CELL DISTRIBUTION WIDTH 12.9 % (11.6-14.8); WHITE BLOOD COUNT 14.1 K/UL (4.8-10.8)
[2019-03-22 10:29] LABS: ANION GAP 8 mmol/L (5-15); BLOOD UREA NITROGEN 11 mg/dL (7-18); CARBON DIOXIDE 29 MMOL/L (21-32); CHLORIDE 99 MMOL/L (98-107); CREATININE 0.8 MG/DL (0.55-1.30); POTASSIUM 4.3 MMOL/L (3.5-5.1); SODIUM 136 MMOL/L (136-145)
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
[2019-03-22 12:00] VITALS: BP 130/91
--- NOTE | 2019-03-22 12:46 | Pulmonology Progress Note ---
Assessment/Plan Problems: (1) Cephalohematoma (2) Cellulitis Assessment/Plan feeling better in a mean spirited mood symptomatic treatment abx as per ID pt still cant open her eyes. Subjective ROS Limited/Unobtainable: No Constitutional: Reports: no symptoms HEENT: Repors: no symptoms Respiratory: Reports: no symptoms Allergies: Coded Allergies: No Known Allergies (Unverified , 03/18/19) Objective Last 24 Hour Vital Signs Date Time Temp Pulse Resp B/P (MAP) Pulse Ox O2 Delivery O2 Flow Rate FiO2 03/22/19 10:10 97.1 03/22/19 09:00 Room Air 03/22/19 08:33 96 20 99 Room Air 21 03/22/19 08:00 97.1 70 16 129/73 (91) 96 03/22/19 04:00 98.0 93 20 123/85 (98) 96 03/21/19 23:38 98.3 106 20 137/91 (106) 98 03/21/19 21:00 Room Air 03/21/19 20:00 98 20 98 Room Air 21 03/21/19 20:00 98 Room Air 21 03/21/19 20:00 98.0 106 20 141/89 (106) 100 03/21/19 16:00 99.6 103 20 141/95 (110) 100 Intake and Output 03/21/19 03/22/19 18:59 06:59 Intake Total 520 ml 240 ml Balance 520 ml 240 ml Intake Oral 520 ml 240 ml # Voids 3 General Appearance: WD/WN HEENT: normocephalic, atraumatic Respiratory/Chest: chest wall non-tender, lungs clear Breasts: no masses Cardiovascular: normal peripheral pulses Abdomen: normal bowel sounds, no organomegaly Extremities: no cyanosis Skin: no rash Laboratory Tests 03/22/19 09:40: White Blood Count 14.1H, Red Blood Count 3.27L, Hemoglobin 9.4L, Hematocrit 27.2L, Mean Corpuscular Volume 83, Mean Corpuscular Hemoglobin 28.7, Mean Corpuscular Hemoglobin Concent 34.5, Red Cell Distribution Width 12.9, Platelet Count 538H, Mean Platelet Volume 5.8L, Neutrophils (%) (Auto) 64.4, Lymphocytes (%) (Auto) 24.3, Monocytes (%) (Auto) 8.3, Eosinophils (%) (Auto) 1.9, Basophils (%) (Auto) 1.2, Sodium Level 136, Potassium Level 4.3, Chloride Level 99, Carbon Dioxide Level 29, Anion Gap 8, Blood Urea Nitrogen 11, Creatinine 0.8 , Estimat Glomerular Filtration Rate > 60, Glucose Level 308H, Calcium Level 9.0 Current Medications Medications (Trade) Dose Ordered Sig/Jazmyn Route PRN Reason Start Time Stop Time Status Last Admin Dose Admin Acetaminophen (Tylenol) 650 mg Q4H PRN ORAL fever (temp>100.5F), Mild pain 03/20/19 16:30 04/17/19 20:29 03/21/19 06:53 Albuterol/ Ipratropium (Albuterol/ Ipratropium) 3 ml Q4H PRN HHN Shortness of Breath 03/19/19 20:30 03/24/19 20:29 Amoxicillin/ Clavulanate Potassium (Augmentin) 875 mg EVERY 12 HOURS ORAL 03/19/19 21:00 03/26/19 20:59 03/22/19 08:29 Dextrose (Dextrose 50%) 25 ml Q30M PRN IV Hypoglycemia 03/20/19 07:00 04/19/19 06:59 Dextrose (Dextrose 50%) 50 ml Q30M PRN IV Hypoglycemia 03/20/19 07:00 04/19/19 06:59 Heparin Sodium (Porcine) (Heparin 5000 units/ml) 5,000 units EVERY 12 HOURS SUBQ 03/19/19 21:00 04/17/19 20:59 03/22/19 08:33 Hydromorphone HCl (Dilaudid) 1 mg Q4H PRN IVP Severe Pain (Pain Scale 7-10) 03/21/19 22:45 03/28/19 22:44 03/22/19 09:40 Insulin Aspart (NovoLOG) BEFORE MEALS AND HS SUBQ 03/19/19 21:00 04/17/19 16:29 03/22/19 06:16 Insulin Aspart (NovoLOG) 6 units NOVOTIAC SUBQ 03/20/19 11:50 04/19/19 11:49 03/22/19 11:34 Insulin Detemir (Levemir) 18 units DAILY SUBQ 03/20/19 09:00 04/19/19 08:59 03/22/19 08:33 Morphine Sulfate (Morphine Sulfate) 2 mg Q4H PRN IVP Moderate Pain (Pain Scale 4-6) 03/19/19 21:00 03/26/19 20:59 03/21/19 20:57 Nitroglycerin (Ntg) 0.4 mg Q 5 MINS PRN SL Prn Chest Pain 03/19/19 20:30 04/17/19 15:44 Ondansetron HCl (Zofran) 4 mg Q6H PRN IVP Nausea & Vomiting 03/19/19 20:30 04/17/19 20:29 Polyethylene Glycol (Miralax) 17 gm DAILYPRN PRN ORAL Constipation 03/19/19 20:30 04/18/19 20:29 Temazepam (Restoril) 15 mg HSPRN PRN ORAL Insomnia 03/19/19 20:30 03/26/19 20:29 03/21/19 22:33 Trimethoprim/ Sulfamethoxazole (Bactrim-DS) 1 tab Q12HR ORAL 03/19/19 21:00 03/26/19 20:59 03/22/19 08:30 Kevin Ramsay MD Mar 22, 2019 12:46
--- NOTE | 2019-03-22 13:03 | NUR ---
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 SOFT TISSUE CONTUSION VS: BP 130/91, P 96, T 97.1, RR 20, SpO2 96 WBC 14.1, RBC 3.27, H&H 9.4/27.2 IS:NOVOLOG SUBQ DILAUDID 1mg IVP HEPARIN SUBQ LEVEMIR SUBQ BACTRIM-DS 1tab AMOXICILLIN 875mg MED/SURG STATUS
[2019-03-22] MEDS ORDERED: NS 275ml ONE (13:05)
[2019-03-22] MEDS ORDERED: Tubing IV Secondary IV ONE (13:05)
[2019-03-22] MEDS ORDERED: NS 500ML ONE (13:05)
--- NOTE | 2019-03-22 15:39 | NUR ---
RD ASSESSMENT & RECOMMENDATIONS SEE CARE ACTIVITY FOR COMPLETE ASSESSMENT DAILY ESTIMATED NEEDS: Needs based on DM/ 65.7kg 25-30 kcals/kg total kcals 1-1.3 g protein/kg 66-86 g total protein 25-30 mL/kg total fluid mLs NUTRITION DIAGNOSIS: Altered nutrition related lab values R/T diabetes, sepsis, clinical condition as evidenced by elev BGs (227 315), POC glu (354 178 181 195), low K (3.4), critically elev wbc (23.1->11.0) CURRENT DIET:[facility] PO DIET [facility]OMM[facility]: [facility] ADDITIONAL RECOMMENDATIONS: * Standing wt as able for accurate CBW * Monitor lytes, replete as needed * Monitor BGs closely * Attempt DM diet ed upon follow up
[2019-03-22 16:00] VITALS: BP 128/87
--- NOTE | 2019-03-22 19:27 | NUR ---
HAND-OFF: Report given to FANG STANTON.
[2019-03-22 20:00] VITALS: BP 124/85
[2019-03-23] VITALS: BP 122/83
[2019-03-23] MEDS: HYDROmorphone 1mg/ml Carpuject IVP PRN ×5 (03:12→21:41)
[2019-03-23 04:00] VITALS: BP 111/75
[2019-03-23] MEDS: NovoLOG Insulin Flexpen SUBQ SCH ×7 (06:17→20:51)
[2019-03-23 06:48] LABS: BASOPHILS % (AUTO) 0.9 % (0.0-2.0); EOSINOPHILS % (AUTO) 1.5 % (0.0-3.0); HEMATOCRIT 32.7 % (37.0-47.0); HEMOGLOBIN 10.4 G/DL (12.0-16.0); LYMPHOCYTES % (AUTO) 29.6 % (20.0-45.0); MEAN CORPUSCULAR VOLUME 88 FL (80-99); MONOCYTES % (AUTO) 6.8 % (1.0-10.0); NEUTROPHILS % (AUTO) 61.2 % (45.0-75.0); PLATELET COUNT 670 K/UL (150-450); RED BLOOD COUNT 3.73 M/UL (4.20-5.40); RED CELL DISTRIBUTION WIDTH 13.3 % (11.6-14.8); WHITE BLOOD COUNT 13.8 K/UL (4.8-10.8)
--- NOTE | 2019-03-23 07:10 | NUR ---
HAND-OFF: Report given to ROMY Aquino.
[2019-03-23 07:12] LABS: ANION GAP 4 mmol/L (5-15); BLOOD UREA NITROGEN 12 mg/dL (7-18); CALCIUM 9.4 MG/DL (8.5-10.1); CARBON DIOXIDE 33 MMOL/L (21-32); CHLORIDE 94 MMOL/L (98-107); CREATININE 0.9 MG/DL (0.55-1.30); POTASSIUM 4.2 MMOL/L (3.5-5.1); SODIUM 131 MMOL/L (136-145)
--- NOTE | 2019-03-23 07:54 | NUR ---
NURSE NOTES: received report from ROMY Greenberg. patient in bed. alert. oriented. verbally responsive. no respiratory distress noted on room air. IV on RH intact. eye swelling decreased. bed in the lowest position . call light within reach. will provide plan of care.
[2019-03-23 08:00] VITALS: BP 120/74
[2019-03-23] MEDS: Augmentin 875mg Tab ORAL SCH ×2 (08:24→20:52)
[2019-03-23] MEDS: Bactrim-DS 1 tab ORAL SCH ×2 (08:25→20:52)
[2019-03-23] MEDS: Heparin 5000 units/ml inj SUBQ SCH ×2 (08:27→20:50)
[2019-03-23] MEDS: Levemir Flexpen SUBQ SCH (08:28)
--- NOTE | 2019-03-23 09:53 | General Progress Note ---
Assessment/Plan Problem List: (1) Cellulitis ICD Codes: L03.90 - Cellulitis, unspecified SNOMED: 159641537 (2) Sepsis ICD Codes: A41.9 - Sepsis, unspecified organism SNOMED: 26277801 (3) Diabetes mellitus out of control ICD Codes: E11.65 - Type 2 diabetes mellitus with hyperglycemia SNOMED: 06050491, 755631419 Status: stable, progressing Assessment/Plan: abx per id cbc bmp am dc plan Subjective Constitutional: Reports: weakness Allergies: Coded Allergies: No Known Allergies (Unverified , 03/18/19) All Systems: reviewed and negative except above Subjective sitting calm Objective Last 24 Hour Vital Signs Date Time Temp Pulse Resp B/P (MAP) Pulse Ox O2 Delivery O2 Flow Rate FiO2 03/23/19 08:10 82 20 98 Room Air 21 03/23/19 04:00 98.0 93 20 111/75 (87) 99 03/23/19 00:00 97.3 103 20 122/83 (96) 97 03/22/19 21:00 Room Air 03/22/19 20:00 98.4 98 20 124/85 (98) 98 03/22/19 19:59 88 20 98 Room Air 21 03/22/19 16:00 98.2 86 16 128/87 (101) 100 03/22/19 14:38 98.2 03/22/19 12:00 98.2 90 16 130/91 (104) 99 Intake and Output 03/22/19 03/23/19 19:00 07:00 Intake Total 400 ml 700 ml Balance 400 ml 700 ml Intake Oral 400 ml 700 ml Laboratory Tests 03/23/19 06:10: White Blood Count 13.8H, Red Blood Count 3.73L, Hemoglobin 10.4L, Hematocrit 32.7L, Mean Corpuscular Volume 88, Mean Corpuscular Hemoglobin 27.9, Mean Corpuscular Hemoglobin Concent 31.8L, Red Cell Distribution Width 13.3, Platelet Count 670H, Mean Platelet Volume 5.5L, Neutrophils (%) (Auto) 61.2, Lymphocytes (%) (Auto) 29.6, Monocytes (%) (Auto) 6.8, Eosinophils (%) (Auto) 1.5, Basophils (%) (Auto) 0.9, Sodium Level 131L, Potassium Level 4.2, Chloride Level 94L, Carbon Dioxide Level 33H, Anion Gap 4L, Blood Urea Nitrogen 12, Creatinine 0.9, Estimat Glomerular Filtration Rate > 60, Glucose Level 309H, Calcium Level 9.4 Height (Feet): 5 Height (Inches): 4.00 Weight (Pounds): 147 General Appearance: lethargic EENT: normal ENT inspection Neck: normal alignment Cardiovascular: normal peripheral pulses, normal rate, regular rhythm Respiratory/Chest: chest wall non-tender, lungs clear, normal breath sounds Abdomen: normal bowel sounds, non tender, soft Extremities: normal inspection Edema: no edema noted Arm (L), no edema noted Arm (R), no edema noted Leg (L), no edema noted Leg (R), no edema noted Pedal (L), no edema noted Pedal (R), no edema noted Generalized Neurologic: responsive, motor weakness Skin: normal pigmentation, warm/dry Objective b/l eye lid swollen sl red sl improved Arjun Bautista DO Mar 23, 2019 09:53
[2019-03-23 12:00] VITALS: BP 114/78
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
[2019-03-23 16:00] VITALS: BP 114/78
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
--- NOTE | 2019-03-23 19:01 | NUR ---
HAND-OFF: Report given to ROMY Greenberg.
--- NOTE | 2019-03-23 19:40 | NUR ---
NURSE NOTES: Pt received awake, alert, able to make needs known, call light within reach, no c/o pain or signs of distress, asking for a tuna sandwhich, will continue to monitor.
[2019-03-23 20:00] VITALS: BP 115/82
[2019-03-24] MEDS: HYDROmorphone 1mg/ml Carpuject IVP PRN ×5 (01:43→20:05)
[2019-03-24 04:00] VITALS: BP 117/78
[2019-03-24] MEDS: NovoLOG Insulin Flexpen SUBQ SCH ×7 (06:04→20:15)
[2019-03-24 07:20] LABS: BASOPHILS % (AUTO) 1.3 % (0.0-2.0); EOSINOPHILS % (AUTO) 2.1 % (0.0-3.0); HEMATOCRIT 32.5 % (37.0-47.0); HEMOGLOBIN 10.7 G/DL (12.0-16.0); LYMPHOCYTES % (AUTO) 32.9 % (20.0-45.0); MEAN CORPUSCULAR VOLUME 88 FL (80-99); MONOCYTES % (AUTO) 6.3 % (1.0-10.0); NEUTROPHILS % (AUTO) 57.5 % (45.0-75.0); PLATELET COUNT 687 K/UL (150-450); RED BLOOD COUNT 3.69 M/UL (4.20-5.40); RED CELL DISTRIBUTION WIDTH 13.4 % (11.6-14.8); WHITE BLOOD COUNT 11.1 K/UL (4.8-10.8)
[2019-03-24 07:39] LABS: ANION GAP 4 mmol/L (5-15); BLOOD UREA NITROGEN 15 mg/dL (7-18); CALCIUM 9.4 MG/DL (8.5-10.1); CARBON DIOXIDE 32 MMOL/L (21-32); CHLORIDE 95 MMOL/L (98-107); POTASSIUM 4.9 MMOL/L (3.5-5.1); SODIUM 130 MMOL/L (136-145)
--- NOTE | 2019-03-24 07:47 | General Progress Note ---
Assessment/Plan Problem List: (1) Cellulitis ICD Codes: L03.90 - Cellulitis, unspecified SNOMED: 576414012 (2) Sepsis ICD Codes: A41.9 - Sepsis, unspecified organism SNOMED: 26490972 (3) Diabetes mellitus out of control ICD Codes: E11.65 - Type 2 diabetes mellitus with hyperglycemia SNOMED: 13627863, 005974054 Status: stable, progressing Assessment/Plan: abx per id cbc bmp am dc plan Subjective Constitutional: Reports: weakness Allergies: Coded Allergies: No Known Allergies (Unverified , 03/18/19) All Systems: reviewed and negative except above Subjective sleepy calm Objective Last 24 Hour Vital Signs Date Time Temp Pulse Resp B/P (MAP) Pulse Ox O2 Delivery O2 Flow Rate FiO2 03/24/19 04:00 97.8 89 18 117/78 (91) 97 03/23/19 21:00 Room Air 03/23/19 20:25 80 20 97 Room Air 21 03/23/19 20:00 97.8 99 18 115/82 (93) 98 03/23/19 16:00 97.5 99 18 114/78 (90) 97 03/23/19 12:00 98.5 105 18 114/78 (90) 95 03/23/19 09:00 Room Air 03/23/19 08:10 82 20 98 Room Air 21 03/23/19 08:00 99.1 114 18 120/74 (89) 99 Intake and Output 03/23/19 03/24/19 19:00 07:00 Intake Total 1320 ml 940 ml Balance 1320 ml 940 ml Intake Oral 1320 ml 940 ml # Voids 3 Laboratory Tests 03/24/19 06:45: White Blood Count 11.1H, Red Blood Count 3.69L, Hemoglobin 10.7L, Hematocrit 32.5L, Mean Corpuscular Volume 88, Mean Corpuscular Hemoglobin 28.8, Mean Corpuscular Hemoglobin Concent 32.8, Red Cell Distribution Width 13.4, Platelet Count 687H, Mean Platelet Volume 5.3L, Neutrophils (%) (Auto) 57.5, Lymphocytes (%) (Auto) 32.9, Monocytes (%) (Auto) 6.3, Eosinophils (%) (Auto) 2.1, Basophils (%) (Auto) 1.3, Sodium Level 130L, Potassium Level 4.9, Chloride Level 95L, Carbon Dioxide Level 32, Anion Gap 4L, Blood Urea Nitrogen 15, Creatinine 1.0, Estimat Glomerular Filtration Rate > 60, Glucose Level 327H, Calcium Level 9.4 Height (Feet): 5 Height (Inches): 4.00 Weight (Pounds): 147 General Appearance: lethargic EENT: normal ENT inspection Neck: normal alignment Cardiovascular: normal peripheral pulses, normal rate, regular rhythm Respiratory/Chest: chest wall non-tender, lungs clear, normal breath sounds Abdomen: normal bowel sounds, non tender, soft Extremities: normal inspection Edema: no edema noted Arm (L), no edema noted Arm (R), no edema noted Leg (L), no edema noted Leg (R), no edema noted Pedal (L), no edema noted Pedal (R), no edema noted Generalized Neurologic: motor weakness Skin: normal pigmentation, warm/dry Objective b/l eye lid swollen sl red sl improved Arjun Bautista DO Mar 24, 2019 07:47
--- NOTE | 2019-03-24 07:49 | NUR ---
HAND-OFF: Report given to ROMY العلي.
[2019-03-24 08:00] VITALS: BP 108/70
[2019-03-24] MEDS: Bactrim-DS 1 tab ORAL SCH ×2 (08:13→20:05)
[2019-03-24] MEDS: Augmentin 875mg Tab ORAL SCH ×2 (08:13→20:05)
[2019-03-24] MEDS: Heparin 5000 units/ml inj SUBQ SCH ×2 (08:15→20:14)
[2019-03-24] MEDS: Levemir Flexpen SUBQ SCH (08:16)
[2019-03-24 12:00] VITALS: BP 100/68
[2019-03-24 14:00] VITALS: BP 100/68
[2019-03-24 16:00] VITALS: BP 114/70
--- NOTE | 2019-03-24 19:05 | NUR ---
NURSE NOTES: Pt received awake, alert, asking for pain medication, able to make needs known, gauze on forehead, call light within reach, will continue to monitor.
--- NOTE | 2019-03-24 19:51 | NUR ---
HAND-OFF: Report given to ROMY Greenberg.
[2019-03-24 20:00] VITALS: BP 110/74
[2019-03-25] VITALS: BP 109/71
[2019-03-25] MEDS: HYDROmorphone 1mg/ml Carpuject IVP PRN ×4 (00:23→16:39)
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
[2019-03-25] MEDS: NovoLOG Insulin Flexpen SUBQ SCH ×6 (06:45→17:07)
--- NOTE | 2019-03-25 07:36 | NUR ---
HAND-OFF: Report given to ROMY carranza.
[2019-03-25 07:39] LABS: BASOPHILS % (AUTO) 1.2 % (0.0-2.0); EOSINOPHILS % (AUTO) 2.1 % (0.0-3.0); HEMATOCRIT 34.4 % (37.0-47.0); HEMOGLOBIN 11.2 G/DL (12.0-16.0); LYMPHOCYTES % (AUTO) 41.5 % (20.0-45.0); MEAN CORPUSCULAR VOLUME 88 FL (80-99); MONOCYTES % (AUTO) 6.1 % (1.0-10.0); NEUTROPHILS % (AUTO) 49.1 % (45.0-75.0); PLATELET COUNT 735 K/UL (150-450); RED CELL DISTRIBUTION WIDTH 13.6 % (11.6-14.8); WHITE BLOOD COUNT 10.7 K/UL (4.8-10.8)
[2019-03-25 08:00] VITALS: BP 100/57
[2019-03-25 08:08] LABS: ANION GAP 8 mmol/L (5-15); BLOOD UREA NITROGEN 21 mg/dL (7-18); CARBON DIOXIDE 27 MMOL/L (21-32); CHLORIDE 93 MMOL/L (98-107); POTASSIUM 5.1 MMOL/L (3.5-5.1); SODIUM 128 MMOL/L (136-145)
[2019-03-25] MEDS: Augmentin 875mg Tab ORAL SCH (08:08)
[2019-03-25] MEDS: Bactrim-DS 1 tab ORAL SCH (08:08)
[2019-03-25] MEDS: Heparin 5000 units/ml inj SUBQ SCH (08:16)
--- NOTE | 2019-03-25 08:29 | General Progress Note ---
Assessment/Plan Problem List: (1) Cellulitis ICD Codes: L03.90 - Cellulitis, unspecified SNOMED: 465995366 (2) Sepsis ICD Codes: A41.9 - Sepsis, unspecified organism SNOMED: 85477083 (3) Diabetes mellitus out of control ICD Codes: E11.65 - Type 2 diabetes mellitus with hyperglycemia SNOMED: 33685105, 041745242 Status: stable, progressing Assessment/Plan: abx per id cbc bmp am dc if clear Subjective Constitutional: Reports: weakness Allergies: Coded Allergies: No Known Allergies (Unverified , 03/18/19) All Systems: reviewed and negative except above Subjective sleepy calm Objective Last 24 Hour Vital Signs Date Time Temp Pulse Resp B/P (MAP) Pulse Ox O2 Delivery O2 Flow Rate FiO2 03/25/19 00:00 97.8 94 19 109/71 (84) 95 03/24/19 21:00 Room Air 03/24/19 20:00 97.8 94 18 110/74 (86) 97 03/24/19 16:00 98.2 101 15 114/70 (85) 98 03/24/19 15:49 98.0 03/24/19 14:11 96 18 98 Room Air 21 03/24/19 12:00 98.0 94 15 100/68 (79) 98 03/24/19 09:00 Room Air Intake and Output 03/24/19 03/25/19 19:00 07:00 Intake Total 1500 ml 1200 ml Balance 1500 ml 1200 ml Intake Oral 1500 ml 1200 ml # Voids 3 Laboratory Tests 03/25/19 05:22: White Blood Count 10.7, Red Blood Count 3.90L, Hemoglobin 11.2L, Hematocrit 34.4L, Mean Corpuscular Volume 88, Mean Corpuscular Hemoglobin 28.7, Mean Corpuscular Hemoglobin Concent 32.5, Red Cell Distribution Width 13.6, Platelet Count 735H, Mean Platelet Volume 5.2L, Neutrophils (%) (Auto) 49.1, Lymphocytes (%) (Auto) 41.5, Monocytes (%) (Auto) 6.1, Eosinophils (%) (Auto) 2.1, Basophils (%) (Auto) 1.2, Sodium Level 128L, Potassium Level 5.1, Chloride Level 93L, Carbon Dioxide Level 27, Anion Gap 8, Blood Urea Nitrogen 21H, Creatinine 1.0, Estimat Glomerular Filtration Rate > 60, Glucose Level 329H, Calcium Level 10.0 Height (Feet): 5 Height (Inches): 4.00 Weight (Pounds): 147 General Appearance: lethargic EENT: normal ENT inspection Neck: normal alignment Cardiovascular: normal peripheral pulses, normal rate, regular rhythm Respiratory/Chest: chest wall non-tender, lungs clear, normal breath sounds Abdomen: normal bowel sounds, non tender, soft Extremities: normal inspection Edema: no edema noted Arm (L), no edema noted Arm (R), no edema noted Leg (L), no edema noted Leg (R), no edema noted Pedal (L), no edema noted Pedal (R), no edema noted Generalized Neurologic: motor weakness Skin: normal pigmentation, warm/dry Objective b/l eye lid swollen sl red sl improved Arjun Bautista DO Mar 25, 2019 08:29
[2019-03-25] MEDS ORDERED: Levemir Flexpen SUBQ SCH (09:00)
[2019-03-25 12:00] VITALS: BP 104/68
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
[2019-03-25 16:00] VITALS: BP 120/79
--- NOTE | 2019-03-25 17:30 | NUR ---
NURSE NOTES: patient took shower, cleaned forehead wound with soap and water, dried area. Nurse did change of dressing with NS, 4x4, tape.
--- NOTE | 2019-03-25 18:30 | NUR ---
NURSE NOTES: patient has been discharged, given bus token, pt previously said she'd go to her sister who lives in [place]. Later during the day she said she changed her mind and would go to [facility]. Nurse asked her where in [place], she replied: "I'll be fine". Pt left with all her belongings, signed off belongings list. Also given a pair of shoes as pt didn't have any. Provided pt with dressing change supplies and demonstrated pt on how to change it, and to do it daily and PRN staining. Taken off IV access, no bleeding noted after site compression. As pt is homeless, Homeless discharge assessment completed, and signed by pt and nurse, sent to nursing office. Pt left ambulatory with statistical secretary Keiko to get bus token, then walked to [facility] stop at [facility]. Addendum: 03/25/19 at 1954 by AMANDA GARNER RN NURSE NOTES: also, given discharge packet with medication reconciliation, educational pamphlet and 1 sheet of prescription medication for diabetes medication and glucometer device and supplies.
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
== END 2019-03-25 18:30 | disposition home or self-care (01) | DRG 603 ==
LOC: EDBD 07:57 → EMR 08:05 → 2E 12:50 → EDBEDREQ 13:29 → EDBEDREQSVC 13:29 → EDBEDREQ 13:31 → 4E 03-19 20:13
DX: L03.213 Periorbital cellulitis (principal); E11.65 Type 2 diabetes mellitus with hyperglycemia; R51 Headache; S00.83XA Contusion of other part of head, initial encounter; Y04.2XXA Assault by strike against or bumped into by another person, initial encounter; M25.552 Pain in left hip; F15.10 Other stimulant abuse, uncomplicated; E87.6 Hypokalemia; Z59.0 Homelessness; Z79.84 Long term (current) use of oral hypoglycemic drugs
CPT/HCPCS: 36415; 70450; 70486; 71045; 72170; 80048; 80053; 80307; 80329; 81003; 81025; 82962; 83605; 84702; 85007; 85025; 87040; 87081; 93970; 94664; 96361; 96365; 96375; 99285; J1815; J2405; J8499; S5561

== ENCOUNTER 2019-04-18 06:29 | Inpatient (IN) | payer SELFPAY ==
[~2019-04-18] VITALS: Ht 160 cm; Wt 72.6 kg
[~2019-04-18 06:29] MED LIST changes: +AUGMENTIN 875-1 EAC1 ORAL; +BACTRIM-DS1 EA ORAL
--- NOTE | 2019-04-18 06:39 | NUR ---
ED Nurse Note: PT AMBULATED TO ED C/O N/V/D/ WITH ABD PAIN X 2 WEEKS PT BELIEVES SHE IS .
[2019-04-18 06:40] VITALS: BP 113/72
--- NOTE | 2019-04-18 06:45 | NUR ---
ED Nurse Note: IV ACCESS ESTABLISHED, BLOOD AND URINE SAMPLE SENT TO LAB. US HAS BEEN PAGED. BED PLACED IN LOWEST POSITION, X 2 SIDERAILS. VSS AT THE MOMENT. PT SHOWS NO ACUTE SIGNS OF DISTRESS. PT HAS A LEFT FOURTH TOE INFECTION. ERMD AWARE.
--- NOTE | 2019-04-18 06:50 | Emergency Room Report ---
History of Present Illness General Chief Complaint: Abnormal Labs Source: Patient Present Illness HPI 28-year-old female with no major medical problems comes ER with 2 complaints, one her left foot and toe is hurting, to she is having lower abdominal pain cramping, intermittent, mild to moderate intensity, with associated nausea vomiting and diarrhea x many weeks. She reports he took test at home 1 week ago and it was positive. She denies leg swelling, cp, sob, f/c, vaginal discharge or bleeding, just reports "I know I'm ". Allergies: Coded Allergies: No Known Allergies (Unverified , 04/18/19) Patient History Past Medical History: see triage record Last Menstrual Period: UNK Now: Yes : 2 Para: 1 Reviewed Nursing Documentation: PMH: Agreed; PSxH: Agreed Nursing Documentation-PMH Past Medical History: No History, Except For Hx Cardiac Problems: Yes - ANEMIA Hx Diabetes: Yes - TYPE1 Hx Cancer: No Hx Gastrointestinal Problems: No Hx Neurological Problems: No Review of Systems All Other Systems: negative except mentioned in HPI Physical Exam Vital Signs Date Time Temp Pulse Resp B/P (MAP) Pulse Ox O2 Delivery O2 Flow Rate FiO2 04/18/19 06:33 98.4 115 18 120/76 (91) 95 Room Air Sp02 EP Interpretation: reviewed, normal General Appearance: no apparent distress, alert, non-toxic Head: normocephalic Eyes: bilateral eye normal inspection, bilateral eye PERRL, bilateral eye EOMI ENT: normal ENT inspection, hearing grossly normal, normal pharynx, no angioedema, normal voice, moist mucus membranes Neck: normal inspection, full range of motion, supple, supple/symm/no masses Respiratory: chest non-tender, lungs clear, normal breath sounds, no rhonchi, no respiratory distress, no retraction, no accessory muscle use, no wheezing, chest symmetrical, palpation of chest normal Cardiovascular #1: normal peripheral pulses, regular rate, rhythm Cardiovascular #2: 2+ radial (R), 2+ radial (L) Gastrointestinal: normal inspection, non tender, soft, no mass, no guarding, no rebound Rectal: deferred Genitourinary: normal inspection, no CVA tenderness Musculoskeletal: back normal, gait/station normal, normal range of motion, non- tender, no calf tenderness Neurologic: alert, responsive, ballet master/mistress III-XII nml as tested, motor strength/tone normal, sensory intact, speech normal Psychiatric: judgement/insight normal, memory normal, mood/affect normal, anxious Skin: warm/dry, other - L foot 4th digit with dorsal aspect erythema, warmth, tenderness spreading proximally to distal forefoot dorsum Lymphatic: no adenopathy Medical Decision Making Diagnostic Impression: Primary Impression: Cellulitis Additional Impressions: Abdominal pain Hyperglycemia ER Course Patient with L foot cellulitis, will give keflex. Patient with N/V/D, abd cramping, but nonfocal abdominal exam. She was given abx for cellulitis, and labs revealed wbc 15k, and glucose of 400+, but no evidence of dka, treated with IVF. Serum HCG quant of 1, inconsistent with . Will dc with abx , metformin, PMD f/u. CT abd/pelvis with gallstones, but no acute cholecystitis , +small bowel loops enhancement, likely gastroenteritis. Subcutaneous edema of abdominal wall. Will cover with keflex although no clinical abd wall cellulitis.. CT/MRI/US Diagnostic Results CT/MRI/US Diagnostic Results : Imaging Test Ordered: ct abd/pelvis Last Vital Signs Date Time Temp Pulse Resp B/P (MAP) Pulse Ox O2 Delivery O2 Flow Rate FiO2 04/18/19 06:33 98.4 115 18 120/76 (91) 95 Room Air Disposition: HOME, SELF-CARE Condition: Stable KRIS ELLIOTT M.D Apr 18, 2019 06:50
[2019-04-18 07:03] LABS: APPEARANCE,URINE CLEAR; BILIRUBIN, URINE NEGATIVE (NEGATIVE); COLOR,URINE PALE YELLOW; GLUCOSE, URINE (UA) 4+ (NEGATIVE); KETONES,URINE NEGATIVE (NEGATIVE); LEUKOCYTE ESTERASE ,URINE NEGATIVE (NEGATIVE); NITRITE,URINE NEGATIVE (NEGATIVE); PH,URINE 6 (4.5-8.0); PROTEIN,URINE NEGATIVE (NEGATIVE); UROBILINOGEN,URINE NORMAL MG/DL (0.0-1.0)
--- NOTE | 2019-04-18 07:06 | NUR ---
HAND-OFF: Report given to ROMY TAPIA.
[2019-04-18 07:18] LABS: HEMATOCRIT 31.8 % (37.0-47.0); HEMOGLOBIN 10.4 G/DL (12.0-16.0); LYMPHOCYTES % (AUTO) 24.7 % (20.0-45.0); MEAN CORPUSCULAR VOLUME 87 FL (80-99); MONOCYTES % (AUTO) 5.9 % (1.0-10.0); NEUTROPHILS % (AUTO) 66.4 % (45.0-75.0); PLATELET COUNT 553 K/UL (150-450); RED BLOOD COUNT 3.65 M/UL (4.20-5.40); RED CELL DISTRIBUTION WIDTH 13.2 % (11.6-14.8); WHITE BLOOD COUNT 15.3 K/UL (4.8-10.8)
[2019-04-18 07:19] LABS: ANION GAP 10 mmol/L (5-15); BLOOD UREA NITROGEN 14 mg/dL (7-18); CALCIUM 8.7 MG/DL (8.5-10.1); CARBON DIOXIDE 24 MMOL/L (21-32); CHLORIDE 99 MMOL/L (98-107); CREATININE 0.8 MG/DL (0.55-1.30); POTASSIUM 3.6 MMOL/L (3.5-5.1); SODIUM 133 MMOL/L (136-145)
[2019-04-18 07:23] LABS: ALANINE AMINOTRANSFERASE 11 U/L (12-78); ALBUMIN 2.4 G/DL (3.4-5.0); ALBUMIN/GLOBULIN RATIO 0.4 (1.0-2.7); ALKALINE PHOSPHATASE 139 U/L (46-116); ASPARTATE AMINO TRANSFERASE 11 U/L (15-37); BILIRUBIN,TOTAL 0.3 MG/DL (0.2-1.0)
[2019-04-18] MEDS ORDERED: Isovue-300 100ml vial INJ PRN (07:45)
[2019-04-18] MEDS ORDERED: Tylenol #3 tab (300mg/30mg) ORAL ONE (07:45)
[2019-04-18] MEDS ORDERED: Cephalexin 500mg cap ORAL ONE (07:45)
[2019-04-18 08:00] VITALS: BP 117/78
--- NOTE | 2019-04-18 08:00 | NUR ---
ED Nurse Note: is negative. cancelled the US and will do CT per Dr. Garcia order.
--- NOTE | 2019-04-18 08:24 | NUR ---
ED Nurse Note: pt went down for CT.
[2019-04-18 10:00] VITALS: BP 121/76
--- NOTE | 2019-04-18 10:00 | NUR ---
ED Nurse Note: pt lying in bed with eye closed. no facial grimacing or moaning noted.
[2019-04-18] MEDS ORDERED: Vancomycin 1.5 GM in NS 275 ML IVPB ONE (11:15)
[2019-04-18] MEDS ORDERED: Piperacillin/Tazobactam 3.375 GM in NS 110 ML IVPB ONE (11:15)
[2019-04-18 12:00] VITALS: BP 120/70
--- NOTE | 2019-04-18 12:10 | NUR ---
ED Nurse Note: infection noted on left 4th digit toe. yellow discharge noted. redness noted on sacral area. no open wound.
--- NOTE | 2019-04-18 12:22 | NUR ---
ED Nurse Note: RN notified BS and Dr. Garcia ordered 2nd bag of NS as bolus.
[2019-04-18] MEDS ORDERED: NKM (12:35)
--- NOTE | 2019-04-18 12:44 | Diagnostic Imaging Report ---
Indication: Abdominal pain Technique: Continuous helical transaxial imaging of the abdomen and pelvis was obtained from the lung bases to the pubic symphysis during intravenous contrast administration. Coronal 2-D reformats were also obtained. Study obtained in a Siemens sensation [address] Automatic Exposure Control was utilized. Total Dose length Product (DLP): [address] Dose Index Volume (CTDIvol): 12.10 mGy Comparison: None Findings: The lung bases are clear. Multiple gallstones are demonstrated. There is no nephrolithiasis or hydronephrosis identified. There is generalized subcutaneous edema involving the abdominal wall nonspecific. The liver and spleen and pancreas are unremarkable. There is no adrenal mass. There is no evidence of biliary ductal dilatation. The appendix is partially seen and appears normal. Bowel gas pattern appears nonobstructive. However, there is enhancement of the wall of the small bowel without dilatation. Findings could be due to a mild enteritis. There is formed stool within the colon. Uterus is noted. There is no ascites. IMPRESSION: Query mild gastroenteritis given mild enhancement of multiple loops of some nondilated small bowel. No evidence of bowel obstruction. Please correlate clinically. Cholelithiasis. Generalized subcutaneous edema involving the abdominal wall, nonspecific. The CT scanner at [facility] is accredited by the [employer] and the scans are performed using dose optimization techniques as appropriate to a performed exam including Automatic Exposure control.
--- NOTE | 2019-04-18 12:44 | Diagnostic Imaging Report ---
Indication: Foot pain Comparison: None Findings: 3 views of the left foot were obtained. There is soft tissue swelling present. No acute fracture or malalignment identified. IMPRESSION: Soft tissue swelling
--- NOTE | 2019-04-18 12:50 | NUR ---
NURSE NOTES: Patient received from ER via gurney at 1250, on RA in stable condition. Patient sleeping, awakens to name. No distress on RA, no facial grimacing or moaning noted. IVF infusing to LAC (NS and Vancomycin) on IV pump, site asymptomatic. Left foot 4 th toe wound, closed with surrounding skin intact, redness noted. Belongings completed with ER staff. Oriented patient to room and call light for safety. Bed in lowest position, will continue to monitor.
--- NOTE | 2019-04-18 12:55 | NUR ---
ED Nurse Note: reporte given to ROMY Erwin.
[2019-04-18 13:00] VITALS: BP 95/56
[2019-04-18] MEDS ORDERED: Miralax 17gm pkt ORAL PRN (13:15)
[2019-04-18] MEDS ORDERED: Albuterol/Ipratropium 3ml neb HHN PRN (13:15)
[2019-04-18] MEDS ORDERED: Morphine Sulfate 2mg/ml Inj(IV/IM USE ONLY) IVP PRN (13:15)
[2019-04-18] MEDS ORDERED: Nitroglycerin Subl 0.4mg tab SL PRN (13:15)
[2019-04-18] MEDS ORDERED: Dextrose 50% 25ml Syringe IV PRN (13:30)
[2019-04-18 16:00] VITALS: BP 112/69
[2019-04-18] MEDS ORDERED: NovoLOG Insulin Flexpen SUBQ SCH (16:30)
--- NOTE | 2019-04-18 16:30 | NUR ---
NURSE NOTES: Dr. Ramsay notified of Venous Doppler and Pelvic US negative. No further orders at this time.
--- NOTE | 2019-04-18 16:50 | Diagnostic Imaging Report ---
Indication:Lower abdominal and pelvic pain. status is not known Technique: Grayscale and duplex Doppler imaging of the pelvis performed utilizing a transabdominal and endovaginal scan. Comparison: None Findings: The size, contour, and configuration of the uterus is within normal limits. The endometrium is uniformly echogenic and normal in thickness. Endometrium is 3 mm in thickness. Uterus measures 7.2 x 4.4 x 3 cm. The ovaries appear normal bilaterally with good dopplerable blood flow. There is no significant free fluid identified. Right ovary 3 x 2.7 x 1.5 cm. Left ovary 3.2 x 3.5 x 2.2 cm. IMPRESSION: No IUP identified. Negative examination. If the patient is , differential considerations include early IUP versus missed versus ectopic . Correlation with serial quantitative beta-hCG and follow-up ultrasound may be needed.
--- NOTE | 2019-04-18 18:42 | NUR ---
CHARGE NURSE NOTES: PATIENT ELOPED FROM FACILITY. PATIENT WALKED OUT OF HER ROOM TOWARD ELEVATOR WITH HER STREET CLOTHES ON, CHARGE NURSE ASKED PATIENT WHERE SHE WAS GOING AND SHE STATED "I'M GOING HOME", INFORMED PATIENT THAT SHE WAS JUST ADMITTED AND THE DOCTOR HAS NOT CLEARED HER YET AND THAT THERE IS NO DISCHARGE ORDER. PATIENT STATED SHE WANTED TO GO HOME AND PROCEEDED TO WALK INTO THE ELEVATOR. ASKED PATIENT IF SHE WANTED TO SIGN OUT AMA AND SHE SAID YES. PATIENT WALKED BACK INTO UNIT, INFORMED PATIENT SHE MAY SIGN AMA BUT HER IV MUST BE REMOVED FIRST, ASKED PATIENT IF SHE HAD HER IV IN STILL AND SHE STATED "I TOOK IT OUT", CHARGE NURSE AND JENNIFER STANTON ASKED PATIENT IF WE CAN SEE HER ARM TO SEE IF IV WAS TAKEN OUT, PATIENT REFUSED TO SHOW US HER ARM AND WALKED TO THE STAIRS, PATIENT WENT TO THE STAIRS, FOLLOWED BY ROMY RODRIGUEZ. SECURITY WAS CALLED. SECURITY ATTEMPTED TO TELL PATIENT NOT TO LEAVE THE FACILITY BUT SHE REFUSED AND PATIENT LEFT THE FACILITY. CALLED [employer] AND FILED REPORT WITH JOINERY PATTERNMAKER #[id number], PROVIDED DESCRIPTION OF PATIENT AND LAST KNOWN LOCATION, ALSO INFORMED JOINERY PATTERNMAKER PATIENT MAY HAVE AN IV. JOINERY PATTERNMAKER #[id number] STATED A POLICE UNIT WILL BE SENT OUT TO LOOK FOR THE PATIENT. NOTIFIED PRIMARY NURSE GISELLE WELL NURSING BAGGING SALVAGER RADHA. CALLED DR. PERRY AND NOTIFIED MD THAT PATIENT ELOPED FROM FACILITY, MD IS AWARE.
[2019-04-18] MEDS ORDERED: Heparin 5000 units/ml inj SUBQ SCH (21:00)
[2019-04-18] MEDS ORDERED: Cefepime HCl 2 GM in D5W 110 ML IV SCH (21:00)
[2019-04-18] MEDS ORDERED: Vancomycin 1 GM in D5W 275 ML IVPB SCH (23:00)
--- NOTE | 2019-04-19 10:46 | Discharge Summary ---
Discharge Summary Discharge Summary _ DATE OF ADMISSION: 04/18/2019 DATE OF DISCHARGE: 04/18/2019 Patient eloped REASON FOR ADMISSION: 28 years old female with past medical history of diabetes mellitus type 1, anemia, presented to emergency department with left foot pain along with abdominal pain, cramping. Abdominal pain described as intermittent, mild to moderate intensity. Patient also reported associated nausea, vomiting, and diarrhea. Patient stated that she took test at home 1 week ago and it was positive. She denies leg swelling, chest pain, shortness of breath, fever, chills, vaginal discharge or bleeding. Upon evaluation patient was tachycardic with heart rate 115, afebrile. Physical examination revealed left foot fourth digit with dorsal aspect with erythema, warmth, tenderness ; spreading proximally to the distal forefoot dorsally. Laboratory work-up revealed leukocytosis WBC 15.3, hemoglobin 10.4, hematocrit 31.3. Glucose 433. No evidence of DKA. Potassium 3.6 Stable LFT. Lipase 225. Urinalysis revealed +4 glucose, no evidence of UTI. Urine toxicology screen was negative. Serum hCG quantitative of [address] of the abdomen and pelvis demonstrated possible mild gastroenteritis given mild enhancement of multiple loops of some nondilated small bowels. No evidence of bowel obstruction. Cholelithiasis. Left foot x-ray revealed soft tissue swelling. No acute fracture or misalignment. Transvaginal ultrasound revealed no intrauterine . In emergency department patient received antibiotics, started on the IV fluids. Patient subsequently admitted for diabetic foot infection. HOSPITAL COURSE: Patient admitted to medical surgical floor. Patient started on empiric antibiotic and IV fluids. DVT prophylaxis provided. Blood sugar was managed with sliding scale of insulin. Pain management was addressed. Patient eloped soon afrer being admitted. FINAL DIAGNOSES: Cellulitis left foot with diabetic foot ulcer Abdominal pain, possible gastroenteritis Hyperglycemia associated with diabetes mellitus ( no evidence of DKA) I have been assigned to dictate discharge summary for this account. I was not involved in the patient's management. Ioana Childs NP Apr 19, 2019 10:46
== END 2019-04-18 18:30 | disposition left against medical advice (07) | DRG 639 ==
LOC: EMR 07:03 → EDBEDREQ 11:29 → 3E 11:33 → EDBEDREQ 12:08
DX: E10.621 Type 1 diabetes mellitus with foot ulcer (principal); K52.9 Noninfective gastroenteritis and colitis, unspecified; E10.65 Type 1 diabetes mellitus with hyperglycemia
CPT/HCPCS: 36415; 74177; 76830; 76856; 80053; 80307; 81003; 82962; 83690; 84702; 85025; 87081; 93970; 96361; 96365; 96367; 99285; J1815

== ENCOUNTER 2019-04-19 00:32 | Inpatient (IN) | payer SELFPAY ==
[~2019-04-19] VITALS: Ht 160 cm; Wt 65.8 kg
[~2019-04-19 00:32] MED LIST changes: +NKM
--- NOTE | 2019-04-19 00:40 | NUR ---
ED Nurse Note: Pt left AMA from [facility] [place] [place] earlier today for L foot ulcer, + preg. Pt came back for the same. Pt is AO x 4times, VSS,on room air no distress. MIGUELD seen Pt at bedside.
[2019-04-19] MEDS ORDERED: Piperacillin/Tazobactam 3.375 GM in NS 110 ML IVPB ONE (01:00)
[2019-04-19] MEDS ORDERED: Vancomycin 1.5 GM in NS 275 ML IVPB ONE (01:00)
--- NOTE | 2019-04-19 01:15 | NUR ---
ED Nurse Note: Blood sample sent to lab.
[2019-04-19 01:22] LABS: BASOPHILS % (AUTO) 0.7 % (0.0-2.0); EOSINOPHILS % (AUTO) 1.7 % (0.0-3.0); HEMATOCRIT 29.9 % (37.0-47.0); HEMOGLOBIN 9.7 G/DL (12.0-16.0); LYMPHOCYTES % (AUTO) 21.9 % (20.0-45.0); MEAN CORPUSCULAR VOLUME 87 FL (80-99); NEUTROPHILS % (AUTO) 70.8 % (45.0-75.0); PLATELET COUNT 533 K/UL (150-450); RED BLOOD COUNT 3.44 M/UL (4.20-5.40); RED CELL DISTRIBUTION WIDTH 13.2 % (11.6-14.8); WHITE BLOOD COUNT 17.2 K/UL (4.8-10.8)
[2019-04-19 01:30] LABS: ANION GAP 7 mmol/L (5-15); BLOOD UREA NITROGEN 8 mg/dL (7-18); CALCIUM 8.3 MG/DL (8.5-10.1); CARBON DIOXIDE 25 MMOL/L (21-32); CHLORIDE 98 MMOL/L (98-107); CREATININE 0.8 MG/DL (0.55-1.30); POTASSIUM 3.9 MMOL/L (3.5-5.1); SODIUM 130 MMOL/L (136-145)
--- NOTE | 2019-04-19 01:41 | NUR ---
ED Nurse Note: Wound culture sent to lab.
--- NOTE | 2019-04-19 01:43 | Emergency Room Report ---
History of Present Illness General Chief Complaint: Lower Extremity Injury Source: Patient Present Illness HPI Is a 28-year-old female who is homeless and diabetic. She presents with chief complaint of left toe pain. She was admitted here earlier today for diabetic foot infection. She eloped from the hospital. She came back because she said it was hurting too much. Denies any fever chills but no nausea no vomiting. No new trauma. Currently not on any medication. Allergies: Coded Allergies: No Known Allergies (Unverified , 04/18/19) Patient History Past Medical History: see triage record, old chart reviewed, DM Past Surgical History: none Pertinent Family History: none Social History: Reports: smoking Now: Yes Immunizations: other Reviewed Nursing Documentation: PMH: Agreed; PSxH: Agreed Nursing Documentation-PMH Past Medical History: No History, Except For Hx Cardiac Problems: Yes - ANEMIA Hx Diabetes: Yes Hx Cancer: No Hx Gastrointestinal Problems: No Hx Neurological Problems: No Review of Systems Eye: Denies: eye pain, blurred vision ENT: Denies: ear pain, nose congestion, throat swelling Respiratory: Denies: cough, shortness of breath Cardiovascular: Denies: chest pain, palpitations Gastrointestinal: Denies: abdominal pain, diarrhea, nausea, vomiting Musculoskeletal: Denies: back pain, joint pain Skin: Denies: rash Neurological: Denies: headache, numbness Endocrine: Denies: increased thirst, increased urine Hematologic/Lymphatic: Denies: easy bruising All Other Systems: negative except mentioned in HPI Physical Exam Vital Signs Date Time Temp Pulse Resp B/P (MAP) Pulse Ox O2 Delivery O2 Flow Rate FiO2 04/19/19 00:41 98.1 106 18 115/77 (90) 98 Room Air Vitals unremarkable Sp02 EP Interpretation: reviewed, normal General Appearance: well appearing, no apparent distress, alert Head: normocephalic, atraumatic Eyes: bilateral eye PERRL, bilateral eye EOMI ENT: hearing grossly normal, normal pharynx Neck: full range of motion, supple, no meningismus Respiratory: chest non-tender, lungs clear, normal breath sounds Cardiovascular #1: regular rate, rhythm, no murmur Gastrointestinal: normal bowel sounds, non tender, no mass, no organomegaly, no bruit, non-distended Musculoskeletal: back normal, gait/station normal, normal range of motion, other - Left foot: Her third toe is swollen and has purulent discharge. I expressed some pus from it. There is erythema tracking to the dorsum of the foot. No crepitance. Normal pulse. Neurologic: alert, oriented x3 Psychiatric: mood/affect normal Medical Decision Making Diagnostic Impression: Primary Impression: Diabetes mellitus out of control Qualified Codes: E10.65 - Type 1 diabetes mellitus with hyperglycemia Additional Impressions: Foot infection Abscess of toe of left foot ER Course An abscess of her toe extending to the foot. Antibiotics given here. Insulin given for diabetes. Patient now agreed to stay in the hospital. Will admit to Dr. Lemus service. Last Vital Signs Date Time Temp Pulse Resp B/P (MAP) Pulse Ox O2 Delivery O2 Flow Rate FiO2 04/19/19 00:41 98.1 106 18 115/77 (90) 98 Room Air Status: improved Disposition: ADMITTED INPATIENT Condition: Serious Radames Bliss MD Apr 19, 2019 01:43
[2019-04-19] MEDS ORDERED: Insulin Human Regular 100units/ml 3ml IV ONE (01:45)
--- NOTE | 2019-04-19 02:25 | NUR ---
ED Nurse Note: Recheck AC check 217, ERMD aware. Pt refused dressing cover the wound. Pt refused the belongings counted and states: That's my staff, don't touch it! I don't want anybody touch it.
--- NOTE | 2019-04-19 02:39 | NUR ---
ED Nurse Note: Report given to 4E RN Lexy. Pt will admit to 418-2, belongings and skin issue report to floor RN.
--- NOTE | 2019-04-19 02:45 | NUR ---
NURSE NOTES: Pt received in stable condition, received from ROMY Gomez from ED. Pt has slight temp of 100.8. All belongings at bedside yet pt refuses to sign belongings list or to allow nurse to account for her belongings. All belongings are with pt at bedside. Informed pt we are not responsible for her belongings when she refuses to sign. pt acknowledged and verbalized understanding. Pt taken of left toe diabetic sore, uploaded. Pt alert and oriented x4, appears lethargic yet appropriate and follows commands. Bed is locked and in lowest position, side rails x2, bed alarm on and informed pt to call for assistance due to pain in left toe. Call light within reach and will continue to monitor pt.
--- NOTE | 2019-04-19 03:00 | NUR ---
NURSE NOTES: Contacted MD Lemus for admitting orders, Awaiting response. Informed Dr Lemus that pt is currently, has diabetes, toe infection, temp 100.8, tachycardic 106 bpm, and sodium is low at 130. will await orders and response from MD Lemus
[2019-04-19 03:05] VITALS: BP 117/76
[2019-04-19 04:00] VITALS: BP 118/75
--- NOTE | 2019-04-19 04:00 | NUR ---
NURSE NOTES: Pt is no longer febrile
--- NOTE | 2019-04-19 07:41 | NUR ---
HAND-OFF: Report given to ROMY Tellez.
[2019-04-19 08:00] VITALS: BP 127/83
--- NOTE | 2019-04-19 08:10 | NUR ---
NURSE NOTES: HANDOFF RECEIVED FROM ROMY PACKER. PATIENT RECEIVED SLEEPING IN BED. CALL LIGHT IN REACH AND BED IN LOWEST AND LOCKED POSITION, HAND RAILS X2. LEFT IV SITE IS CLEAN, DRY AND INTACT AND SALINE LOCKED.
[2019-04-19] MEDS ORDERED: metFORMIN 500mg tab ORAL SCH ×2 (09:00→11:00)
[2019-04-19] MEDS ORDERED: NS w/KCl 20mEq 1000ml 1,000 ML IV SCH (10:00)
[2019-04-19] MEDS ORDERED: Vancomycin 1.25gm Premix IVPB SCH (11:00)
--- NOTE | 2019-04-19 11:23 | NUR ---
Social Work This SW met with patient due to having a history of homelessness, substance. Patient explains she lives with her (would not disclose his name) on the street; does not have any children, and believes she is . Patient admitted to a history of Meth abuse, while denied any current substance abuse. This Sw advised patient to discontinue substance abuse, especially if she is . Substance abuse and homeless/housing resources provided. Patient explains she plans to return to the street with her spouse, who is currently working (has income; patient would disclose where spouse works or the amount of income they have). Patient stating she does not want to stay in a half-way, nor has a good relationship with her family (sister) to live with as well. Patient agreeable to homeless housing assistance, if meets criteria. SW to follow further, as needed.
[2019-04-19 12:00] VITALS: BP 109/78
[2019-04-19] MEDS ORDERED: Piperacillin/Tazobactam 3.375 GM in NS 110 ML IVPB SCH (12:00)
--- NOTE | 2019-04-19 15:17 | NUR ---
NURSE NOTES: PATIENT STATES THAT SHE HAD SOME VAGINAL BLEEDING. ALSO STATED THAT SHE IS . I NOTIFIED DR PERRY.
[2019-04-19 16:00] VITALS: BP 128/87
--- NOTE | 2019-04-19 16:38 | NUR ---
TOUCH UP WORKERDELIVERY ASSOCIATE 28 YO FEMALE FROM THE STREETS TO ER CC LEFT FOOT ULCER (PT LEFT AMA FROM [facility]) SI: DIABETIC FOOT ABSCESS T. 98.0 HR 106 RR 18 B/P 115/77 WBC 17.2 NA 130 GLU 385 CA 8.3 IS: VANCO IV ZOSYN IV INSULIN IV ADMITTED TO MED/SURG @ 0243 MED/SURG STATUS DCP PENDING HOSPITAL STAY
--- NOTE | 2019-04-19 17:22 | History & Physical ---
History and Physical History & Physicial Shawn Lemus MD Apr 19, 2019 17:22
--- NOTE | 2019-04-19 20:36 | NUR ---
NURSE NOTES: PATIENT LEFT AMA STATING " MY FOOT IS FINE, SEE I CAN WALK ON IT, I JUST WANT TO GO HOME. NOW" I SPOKE WITH PATIENT. PATIENT WAS OFFERED A MEAL BUT REFUSED. PATIENT WOULD NOT GIVE INFORMATION ON WHERE SHE WAS GOING. IV WAS REMOVED. PATIENT WAS ALERT AND ORIENTED. PATIENT SIGNED BELONGINGS LIST AND AMA FORMS. NOTIFIED PHYSICIAN OF PATIENT LEAVING AMA
--- NOTE | 2019-04-19 22:30 | History and Physical Report ---
DATE OF ADMISSION: 04/19/2019 CHIEF COMPLAINT: Left foot ulcer and swollen. HISTORY OF PRESENT ILLNESS: This 28 years old female with a past medical history significant for diabetes type 2, poorly controlled as well as with the unknown stage or trimester. The patient is homeless, presented to the emergency room complaining about left foot fourth toe ulceration, it has been going on for past one week. The patient stated that she was seen earlier at the hospital and subsequently she eloped from the hospital and she came back. Shortly after initial evaluation in the emergency, the patient was admitted to the hospital with left foot diabetic ulcer. She denies any fever or chills. Denies any nausea or vomiting. Denies any loss of consciousness. PAST MEDICAL/PAST SURGICAL HISTORY: As above, history of diabetes type 2, uncontrolled as well as an intrauterine and anemia. MEDICATIONS AT HOME: Metformin. ALLERGIES: No known drug allergies. SOCIAL HISTORY: Denies any smoking, alcohol, or drugs. She is homeless. FAMILY HISTORY: Noncontributory. REVIEW OF SYSTEMS: Mostly as above. PHYSICAL EXAMINATION: VITAL SIGNS: On admission, temperature 98.1, pulse of 106, respirations 18, and blood pressure 115/57. GENERAL: The patient is awake, responsive, in no acute distress. HEAD AND NECK: Pupils are equal and reactive to light. Extraocular movements intact. NECK: Supple. No JVD. LUNGS: Good air entry. No wheeze or rales. HEART: S1 and S2. Regular rhythm. No gallops. ABDOMEN: Soft, nondistended, and nontender. Mildly obese/. EXTREMITIES: No cyanosis or clubbing. Positive edema on the left lower extremity. The patient has in between third and fourth toe swollen, purulent material, erythematous, and tender to touch. NEUROLOGIC: Cranial nerves II through XII are grossly intact. Motor is 5/5 in all extremities. Gait is intact. RECTAL/GENITOURINARY: Refused and deferred. PSYCHIATRIC: Mood and affect is intact. LABORATORY DATA: On admission from the ER, sodium 130, potassium 3.9, chloride 98, bicarbonate 25, BUN 8, creatinine 0.8, and glucose is 385. WBC of 17, hemoglobin of 9.7, hematocrit 29, and platelets is 533,000. ASSESSMENT: 1. Left foot diabetic foot ulcer with fourth metatarsal infection. 2. Diabetes type 2, uncontrolled. 3. Intrauterine . PLAN: Admit the patient to the medical floor. We will follow up with laboratory as well as culture. Broad-spectrum antibiotic with vancomycin and Zosyn. We will consider Podiatry consultation with Dr. Gale, social and political studies professor consultation, insurance case manager consultation, and discussed with the patient aggressively with regard to the care that will be provided with diabetic care and wound care. DVT prophylaxis is SCD. Code status is Full Code. Shawn Lemus M.D. DR: TONIA JOB#: [id number] CC:
--- NOTE | 2019-04-19 22:45 | Consultation ---
DATE OF CONSULTATION: CONSULTING PHYSICIAN: Alonso Winters D.P.M. REFERRING PHYSICIAN: Shawn Lemus M.D. REASON FOR CONSULTATION: Cellulitis of the left fourth toe. HISTORY OF PRESENT ILLNESS: This is a young 28-year-old diabetic patient, who was admitted to [facility] with cellulitis of left fourth toe. The patient is homeless and IV drug user. She states that for the past week, she noticed her toe being enlarged and draining discharge. She thought it will get better. It started getting worse. She decided to present to the hospital for evaluation and treatment. The patient has a white count of 13.4 and subsequently on IV antibiotic. PAST MEDICAL HISTORY: Diabetic neuropathy, cellulitis, sepsis, and IV drug use. PODIATRY EXAMINATION: VASCULAR: Dorsalis pedis and posterior tibial artery are palpable. Capillary filling time is greater than 3 seconds. Left foot noted edema compared to the right. NEUROLOGICAL: Sharp and dull proprioception protected threshold noted to be diminished consistent with peripheral neuropathy. MUSCULOSKELETAL: The patient is mobile. No gross abnormality is seen. The patient's muscle strength is within normal limits. Range of motion is within normal limits. DERMATOLOGICAL: Attention was directed to the left fourth toe where a cellulitic toe is noted just proximal from the toe to the foot area. There is drainage discharge and purulent matter at the periwound area. The toe is enlarged with pus and malodor consistent with diabetic foot and toe infection. There is multiple scab surrounding the toe. The patient does not allow me to further examine the ulcerations due to pain. ASSESSMENT AND PLAN: 1. Diabetic foot ulcer, left fourth toe enlarged with possible bone infection. 2. Continue IV antibiotic. 3. Order was written for MRI of the left fourth toe to rule out osteomyelitis. 4. Order was written for x-ray of the left fourth toe to compare with MRI finding for bone destruction. 5. Order was given for culture of the left fourth toe and third web space for C and S, aerobic, anaerobic, and Gram stain. 6. Order was given to the application of Betadine to fourth toe. The patient currently does not want to have surgery. She just wants to have local wound care with IV antibiotic and pain management. The patient will be followed pending the MRI and x-ray results. Alonso Winters D.P.M DR: SARITA JOB#: [id number] CC:
--- NOTE | 2019-04-20 10:40 | Discharge Summary ---
Discharge Summary Discharge Summary _ DATE OF ADMISSION: 04/18/2019 DATE OF DISCHARGE: 04/19/2019 CONSULTANTS: Dr. Alonso Ramsay BRIEF HOSPITAL COURSE: Patient is a 28-year-old female with past medical history significant for type 2 diabetes, poorly controlled as well as with unknown stage or trimester. Patient is homeless. The patient presented to ED complaining of left foot fourth toe ulceration that has been going on for a week. The patient stated she was seen earlier at the hospital and subsequently she eloped from the hospital and came back. On evaluation at ED, blood pressure was stable, heart rate was slightly elevated to 106. On examination fourth digit of the left foot was swollen and had purulent discharge. ED physician was able to express pus. There was no crepitance. She had normal pedal pulses. Blood work showed leukocytosis with WBC elevated to 17. Hemoglobin 9.7 and hematocrit 30. She was then admitted for evaluation of infected left foot diabetic ulcer on the fourth metatarsal toe , uncontrolled diabetes type 2 and intrauterine . She was admitted to medical floor. She was started empirically on vancomycin and Zosyn. She was placed on DVT prophylaxis. Blood glucose was monitored. She was given metformin. She was given IV hydration. dairy machine operator farmworker was consulted to assess for homelessness. Patient was given local resources. Caustic Preparer was consulted. Patient was given local care. Wound culture was ordered. Patient did not want to have any surgery and wants to have local wound care with IV antibiotic and pain management. She was ordered x-ray and MRI to rule out for osteomyelitis. Full treatment was not carried out as patient left against medical advise. FINAL DIAGNOSES: Diabetic foot ulcer, left fourth toe enlargement possible bone infection Type diabetes type 2, uncontrolled Intrauterine Non-compliance as patient signed out against medical advise DISPOSITION: Patient left against medical advise. I have been assigned to complete a discharge summary on this account, I was not involved with the patient's management.--ANN Burger Jacqueline Robles NP Apr 20, 2019 10:40
== END 2019-04-19 19:03 | disposition left against medical advice (07) | DRG 638 ==
LOC: EMR 02:02 → 4E 02:05 → EDBEDREQ 02:20 → 4E 02:42
DX: E11.621 Type 2 diabetes mellitus with foot ulcer (principal); M86.9 Osteomyelitis, unspecified; E11.65 Type 2 diabetes mellitus with hyperglycemia; Z33.1 Pregnant state, incidental; Z91.19 Patient's noncompliance with other medical treatment and regimen; Z59.0 Homelessness; L03.032 Cellulitis of left toe; E11.40 Type 2 diabetes mellitus with diabetic neuropathy, unspecified; F19.10 Other psychoactive substance abuse, uncomplicated; Z79.84 Long term (current) use of oral hypoglycemic drugs; E11.69 Type 2 diabetes mellitus with other specified complication
CPT/HCPCS: 36415; 80048; 82962; 85025; 87070; 87205; 96365; 96367; 96375; 99285

== ENCOUNTER 2019-08-09 12:25 | Inpatient (IN) | payer MEDICAID, OTHER ==
[~2019-08-09] VITALS: Ht 160 cm; Wt 69.4 kg
[2019-08-09 12:44] VITALS: BP 125/91
[2019-08-09] MEDS ORDERED: cefTRIAXone 1 GM in NS 55 ML IVPB ONE (12:45)
[2019-08-09] MEDS ORDERED: Vancomycin 1.5 GM in NS 275 ML IVPB ONE (13:00)
--- NOTE | 2019-08-09 13:00 | NUR ---
ED Nurse Note: PT WALKED IN DUE TO ABSCESS ON HER LEFT HAND X 3 DAYS. PER PT, IT MIGHT BE A POSSIBLE SPIDER BITE. NOTED SEVERE EDEMA WITH YELLOW DRAINAGE FROM HAND/WRIST AND FOUL SMELLING ODOR COMING FROM IT. PT ALSO CLAIMS SHE IS 6 MOTNHS . AAOX4 AND AMBULATORY.
--- NOTE | 2019-08-09 13:15 | NUR ---
ED Nurse Note: COLLECTED URINE/BLOOD THEN SENT.
[2019-08-09 13:36] LABS: APPEARANCE,URINE CLEAR; BILIRUBIN, URINE NEGATIVE (NEGATIVE); COLOR,URINE PALE YELLOW; GLUCOSE, URINE (UA) 4+ (NEGATIVE); KETONES,URINE NEGATIVE (NEGATIVE); LEUKOCYTE ESTERASE ,URINE NEGATIVE (NEGATIVE); NITRITE,URINE NEGATIVE (NEGATIVE); PH,URINE 7 (4.5-8.0); PROTEIN,URINE 1+ (NEGATIVE); UROBILINOGEN,URINE NORMAL MG/DL (0.0-1.0)
[2019-08-09 13:54] LABS: CREATINE KINASE 31 U/L (26-308)
[2019-08-09 13:57] LABS: ALANINE AMINOTRANSFERASE 16 U/L (12-78); ALBUMIN/GLOBULIN RATIO 0.3 (1.0-2.7); ALKALINE PHOSPHATASE 172 U/L (46-116); ANION GAP 9 mmol/L (5-15); ASPARTATE AMINO TRANSFERASE 13 U/L (15-37); BILIRUBIN,TOTAL 0.3 MG/DL (0.2-1.0); BLOOD UREA NITROGEN 13 mg/dL (7-18); CALCIUM 8.3 MG/DL (8.5-10.1); CARBON DIOXIDE 28 MMOL/L (21-32); CHLORIDE 94 MMOL/L (98-107); CREATININE 0.9 MG/DL (0.55-1.30); POTASSIUM 3.8 MMOL/L (3.5-5.1); SODIUM 131 MMOL/L (136-145)
[2019-08-09 14:05] LABS: HEMATOCRIT 35.4 % (37.0-47.0); HEMOGLOBIN 11.3 G/DL (12.0-16.0); MEAN CORPUSCULAR VOLUME 84 FL (80-99); PLATELET COUNT 591 K/UL (150-450); RED BLOOD COUNT 4.21 M/UL (4.20-5.40); RED CELL DISTRIBUTION WIDTH 12.2 % (11.6-14.8)
[2019-08-09 14:11] LABS: WHITE BLOOD COUNT 28.3 K/UL (4.8-10.8)
--- NOTE | 2019-08-09 14:22 | NUR ---
ED Nurse Note: TAB Link AND RUEL WAS NOTIFIED.
--- NOTE | 2019-08-09 14:33 | Diagnostic Imaging Report ---
Indication: Left wrist pain Findings: 3 views of the left wrist were obtained. No acute fractures, malalignment, erosions or periostitis are identified. Unusual configuration of the distal radioulnar joint with slight negative ulnar variance noted. This is chronic. Soft tissues are markedly edematous. Impression: Marked soft tissue edema. Negative ulnar variance
--- NOTE | 2019-08-09 14:33 | Diagnostic Imaging Report ---
Indication: left hand pain. Comparison: None Findings: 3 views of the left hand were obtained. There is marked soft tissue swelling especially on the lateral part of the hand and dorsum. There is no acute fracture or malalignment identified. The fingers from 2 through 5 are flexed and as such evaluation of the middle and distal phalanges are limited. IMPRESSION: Diffuse soft tissue swelling nonspecific. The bones are unremarkable.
[2019-08-09 14:50] VITALS: BP 128/90
--- NOTE | 2019-08-09 15:00 | NUR ---
ED Nurse Note: PT REPORTS THAT SHE IS STILL IN PAIN. RUEL NOTIFIED. WAITING FOR ORDERS.
--- NOTE | 2019-08-09 15:10 | NUR ---
ED Nurse Note: INSTRUCTED PT NOT TO EAT OR DRINK AT THIS TIME/NPO. PT VERBALIZED UNDERSTANDING.
[2019-08-09] MEDS ORDERED: Morphine Sulfate 2mg/ml Inj(IV/IM USE ONLY) IVP ONE ×2 (15:15→17:15)
--- NOTE | 2019-08-09 16:38 | NUR ---
ED Nurse Note: REPORT GIVEN TO KEIKO STANTON OF [facility].
[2019-08-09 16:45] VITALS: BP 135/89
--- NOTE | 2019-08-09 17:38 | Emergency Room Report ---
History of Present Illness General Chief Complaint: Skin Rash/Abscess Source: Patient Present Illness HPI 29-year-old female with history of type 2 diabetes uncontrolled here complaining of pain and swelling of her left hand and wrist after an abscess formation. Patient reports that the abscess started growing 2 days ago and does not recall how it happened. Patient denies injection of IV drugs. Patient appears to be under the influence of unknown stimulants. Reports that she has not had. In the past 6 months and she reports that she is definitely however her abdomen is flat and not gravid. Patient appears to be dehydrated however denies nausea and vomiting. Denies fever and chills, chest pain, shortness of breath, palpitation. Reports the pain being 10 out of 10 with radiation denies any numbness. Deep ulcerated abscess noted in the left wrist. Patient appears disheveled and not a good historian. Reports that she has history of gestational diabetes that has not diabetes medication for the long time. Patient does not have a primary care physician. Allergies: Coded Allergies: No Known Allergies (Unverified , 04/18/19) Patient History Past Medical History: see triage record Past Surgical History: unable to obtain Pertinent Family History: unable to obtain Last Menstrual Period: unknown, currently Now: No Reviewed Nursing Documentation: PMH: Agreed; PSxH: Agreed Nursing Documentation-PMH Past Medical History: No History, Except For Hx Cardiac Problems: No Hx Diabetes: Yes - DM type 2 Hx Cancer: No Hx Gastrointestinal Problems: No Hx Neurological Problems: No Review of Systems All Other Systems: negative except mentioned in HPI Physical Exam Vital Signs Date Time Temp Pulse Resp B/P (MAP) Pulse Ox O2 Delivery O2 Flow Rate FiO2 08/09/19 12:34 98.6 136 18 116/78 (91) 95 Room Air Sp02 EP Interpretation: reviewed, abnormal - Elevated heart rate General Appearance: alert, GCS 15, non-toxic, mild distress Head: normocephalic, atraumatic Eyes: bilateral eye normal inspection, bilateral eye PERRL ENT: hearing grossly normal, normal pharynx, no angioedema, normal voice Neck: full range of motion, supple/symm/no masses Respiratory: chest non-tender, lungs clear, normal breath sounds, no rhonchi, no respiratory distress, no retraction, no wheezing, speaking full sentences Cardiovascular #1: regular rate, rhythm, no edema, no gallop, no murmur, normal capillary refill Cardiovascular #2: 2+ radial (R), 2+ radial (L) Gastrointestinal: normal bowel sounds, non tender, soft, non-distended, no guarding, no hernia, no rebound Rectal: deferred Genitourinary: no CVA tenderness Musculoskeletal: back normal, gait/station normal, normal range of motion, non- tender, no calf tenderness, calf tenderness Neurologic: alert, oriented x3, responsive, motor strength/tone normal, sensory intact, speech normal Psychiatric: judgement/insight normal, memory normal, mood/affect normal, no suicidal/homicidal ideation Skin: no rash Lymphatic: no adenopathy Medical Decision Making PA Attestation All diagnoses and treatment plans were reviewed and discussed with my supervising physician Dr. Loya Diagnostic Impression: Primary Impression: Sepsis Additional Impression: Hyperglycemia ER Course 29-year-old female with history of type 2 diabetes uncontrolled here complaining of pain and swelling of her left hand and wrist after an abscess formation. Patient reports that the abscess started growing 2 days ago and does not recall how it happened. Patient denies injection of IV drugs. Patient appears to be under the influence of unknown stimulants. Reports that she has not had. In the past 6 months and she reports that she is definitely however her abdomen is flat and not gravid. Patient appears to be dehydrated however denies nausea and vomiting. Denies fever and chills, chest pain, shortness of breath, palpitation. Reports the pain being 10 out of 10 with radiation denies any numbness. Deep ulcerated abscess noted in the left wrist. Patient appears disheveled and not a good historian. Reports that she has history of gestational diabetes that has not diabetes medication for the long time. Patient does not have a primary care physician. Ddx considered but are not limited to : sepsis, Cellulitis, hyperglycemia, DKA, superficial infection, abscess, Vital signs: are WNL, pt. is afebrile H&PE are most consistent with:sepsis, Hyperglycemia ORDERS: sepsis order, DKA order, ED INTERVENTIONS: 4L NS bolus, rocephin, vancomycin, morphine, zofran Patient was admitted with diagnosis of sepsis, hyperglycemia to Dr. Chaney under supervision of Dr.: Vincenzo Lainez, pt stable at time of admission patient was first accepted by Dr. Lemus, however later Dr. Ramsay refused admission of this patient and asked patient to go to panel. Dr. Loya talked to Dr. Chaney and Dr. Chaney accepted patient to be admitted. EKG Diagnostic Results Rate: tachycardiac ST Segments: no acute changes Other Impression no acute ST changes Other X-Ray Diagnostic Results Other X-Ray Diagnostic Results #1: X-Ray ordered: left hand # of Views/Limited Vs Complete: 3 View Indication: Swelling EP Interpretation: Yes PA Xray: Interpretation reviewed, by supervising MD, and agrees with findings. Interpretation: no fractures Impression: No acute disease Electronically Signed by: Pola Nuñez PA-C Other X-Ray Diagnostic Results #2: X-Ray ordered: left wrist # of Views/Limited Vs Complete: 3 View Indication: Pain EP Interpretation: Yes PA Xray: Interpretation reviewed, by supervising MD, and agrees with findings. Interpretation: no dislocation, no soft tissue swelling, no fractures Impression: No acute disease Electronically Signed by: Pola Nuñez PA-C Last Vital Signs Date Time Temp Pulse Resp B/P (MAP) Pulse Ox O2 Delivery O2 Flow Rate FiO2 08/09/19 14:50 98.3 127 15 128/90 100 Room Air Disposition: ADMITTED INPATIENT Condition: Stable Referrals: [facility],REFERRING (PCP) Pola Marquez Aug 09, 2019 17:38
[2019-08-09] MEDS ORDERED: LORazepam 1mg tab ORAL PRN (18:00)
--- NOTE | 2019-08-09 18:02 | NUR ---
NURSE NOTES: Patient received from ED. On room air. belonging list checked. Left hand wound noted. Patient is confused, unable to remember date and time. She said that she's from [place] and that she's 6 months . No abdomen bumps noted at this time.
[2019-08-09 18:48] VITALS: BP 142/93
--- NOTE | 2019-08-09 19:20 | NUR ---
HAND-OFF: Report given to Mahendra Sneed RN.
--- NOTE | 2019-08-09 19:30 | NUR ---
NURSE NOTES: Received report from ROMY Goldman. Pt is resting on the bed and awake, agitated and forgetful. On Tele monitor with ST with HR: 120's and Dr. Chaney aware. IV site intact and no sign of infiltration noted. Noted cellulitis wound on Lt. wrist but Pt refused assessment or wound dressing at this time. Pt refused cleaning at this time. According to Pt, she didn't taking any medication at home. Given admission instruction and smoking cessation. Belongings checked by previous nursed. Placed fall precaution. Will continue to care plan.
[2019-08-09] MEDS: Piperacillin/Tazobactam 4.5 GM in NS 110 ML IVPB SCH (19:39)
[2019-08-09] MEDS: HYDROcodone/Acetamin 5/325 tab ORAL PRN ×2 (19:39→23:49)
[2019-08-09] MEDS: 1/2NS w/KCl 20mEq 1000ml 1,000 ML IV SCH (19:39)
[2019-08-09 20:00] VITALS: BP 130/67
[2019-08-09] MEDS ORDERED: Zolpidem 5mg tab ORAL PRN (21:00)
[2019-08-09] MEDS ORDERED: Milk of Magnesia 30ml Ud ORAL PRN (21:00)
[2019-08-09] MEDS ORDERED: Levemir Flexpen SUBQ SCH (21:00)
--- NOTE | 2019-08-09 21:00 | NUR ---
NURSE NOTES: Noted self voiding with 200cc. No sign of difficulty of voiding at this time. Will continue to monitor any change of condition. Addendum: 08/10/19 at 0030 by BULMARO TORO RN RN charting error. Wrong Pt's charting.
--- NOTE | 2019-08-09 21:28 | Consultation ---
History of Present Illness General Date patient seen: Aug 09, 2019 Reason for Hospitalization: Skin Rash/Abscess Present Illness HPI This is a 29-year-old female who presented to the emergency department at [facility] complaining of worsening left wrist pain. Patient identified to have left wrist and hand and forearm edema and swelling and cellulitis with history of abscess as per patient. States that for the past 2 or 3 days her hand is become like this and there was mild drainage of pus. Leukocytosis, tachycardia, positive tox screen. Surgery called to evaluate and assist with care. Patient seen, chart reviewed. In attempting to examine the patient she is very combative and noncooperative. She refuses to be examined even a focused exam of the left wrist. She refuses to allow dressings to be removed. She states that she does not want any more care provided and wants to be just given antibiotics. Denies any nausea vomiting or fever chills. Is uncooperative with the history which required to be obtained from EMR. Allergies: Coded Allergies: No Known Allergies (Unverified , 04/18/19) Medication History Scheduled Amoxicillin/Potassium Clav 875-125* (Augmentin 875-125 Tablet*), 1 TAB ORAL Q12HR, (Reported) Metformin Hcl (Glucophage), 1,000 MG ORAL DAILY, (Reported) No Known Medications* (NKM - No Known Medications*), 0 ., (Reported) Trimethoprim/Sulfamethoxazole (Bactrim Ds Tablet), 1 TAB ORAL TWICE A DAY, ( Reported) Patient History Limited by: other History Provided By: Medical Record, PMD Healthcare decision maker Resuscitation status Advanced Directive on File Past Medical/Surgical History Past Medical/Surgical History: (1) Cephalohematoma (2) Foot infection (3) Diabetes mellitus out of control (4) Cellulitis (5) Hyperglycemia (6) Sepsis Review of Systems Review of Symptoms General ROS: no weight loss or fever Psychological ROS: no depression or mood changes, no memory loss Ophthalmic ROS: no visual changes or eye irritation ENT ROS: no nasal congestion, hearing loss, dizziness Allergy and Immunology ROS: no allergic symptoms or urticaria Hematological and Lymphatic ROS: no swollen glands, unusual bleeding or bruising Endocrine ROS: no polyuria, polydipsia, weight changes, temperature intolerance Respiratory ROS: no cough, shortness of breath, or wheezing Cardiovascular ROS: no chest pain or dyspnea on exertion Gastrointestinal ROS: denies abdominal pain, bright red blood in stool. Musculoskeletal ROS: no myalgias or arthralgias Neurological ROS: no TIA or stroke symptoms Dermatological ROS: no new or changing skin lesions, rashes or pruritis Patient denies any complaints that she is doing fine just want to be left alone is not want to be examined Physical Exam Physical Exam General appearance: alert, no cooperative, no distress, appears stated age Head: Normocephalic, without obvious abnormality, atraumatic Eyes: conjunctivae/corneas clear. PERRL, EOM's intact. Throat: Lips, mucosa, and tongue normal. Neck: symmetrical, Lungs: respirating Heart: see chart Abdomen: declines exam Extremities: left arm edema; declines exam. does not allow removal of dressings Pulses: declines exam Skin: declines exam Neurologic: aggressive but alert and awake, and oriented Last 24 Hour Vital Signs Date Time Temp Pulse Resp B/P (MAP) Pulse Ox O2 Delivery O2 Flow Rate FiO2 08/09/19 20:00 99.1 124 21 130/67 (88) 98 08/09/19 18:48 99.1 121 26 142/93 (109) 95 08/09/19 17:57 98.9 08/09/19 17:44 98.9 130 20 145/89 97 Room Air 08/09/19 16:45 98.7 128 16 135/89 99 Room Air 08/09/19 15:44 98.9 08/09/19 14:50 98.3 127 15 128/90 100 Room Air 08/09/19 12:44 98.6 125 16 125/91 98 Room Air 08/09/19 12:34 98.6 136 18 116/78 (91) 95 Room Air Laboratory Tests Test 08/09/19 13:05 White Blood Count 28.3 K/UL (4.8-10.8) *H Red Blood Count 4.21 M/UL (4.20-5.40) Hemoglobin 11.3 G/DL (12.0-16.0) L Hematocrit 35.4 % (37.0-47.0) L Mean Corpuscular Volume 84 FL (80-99) Mean Corpuscular Hemoglobin 26.9 PG (27.0-31.0) L Mean Corpuscular Hemoglobin Concent 32.0 G/DL (32.0-36.0) Red Cell Distribution Width 12.2 % (11.6-14.8) Platelet Count 591 K/UL (150-450) H Mean Platelet Volume 5.5 FL (6.5-10.1) L Neutrophils (%) (Auto) % (45.0-75.0) Lymphocytes (%) (Auto) % (20.0-45.0) Monocytes (%) (Auto) % (1.0-10.0) Eosinophils (%) (Auto) % (0.0-3.0) Basophils (%) (Auto) % (0.0-2.0) Differential Total Cells Counted 100 Neutrophils % (Manual) 86 % (45-75) H Lymphocytes % (Manual) 10 % (20-45) L Monocytes % (Manual) 4 % (1-10) Eosinophils % (Manual) 0 % (0-3) Basophils % (Manual) 0 % (0-2) Band Neutrophils 0 % (0-8) Platelet Estimate Increased H Platelet Morphology Normal Urine Color Pale yellow Urine Appearance Clear Urine pH 7 (4.5-8.0) Urine Specific Robbins 1.005 (1.005-1.035) Urine Protein 1+ (NEGATIVE) H Urine Glucose (UA) 4+ (NEGATIVE) H Urine Ketones Negative (NEGATIVE) Urine Blood Negative (NEGATIVE) Urine Nitrite Negative (NEGATIVE) Urine Bilirubin Negative (NEGATIVE) Urine Urobilinogen Normal MG/DL (0.0-1.0) Urine Leukocyte Esterase Negative (NEGATIVE) Urine RBC 2-4 /HPF (0 - 2) H Urine WBC 2-4 /HPF (0 - 2) Urine Squamous Epithelial Cells Moderate /LPF (NONE/OCC) H Urine Bacteria Few /HPF (NONE) Sodium Level 131 MMOL/L (136-145) L Potassium Level 3.8 MMOL/L (3.5-5.1) Chloride Level 94 MMOL/L (98-107) L Carbon Dioxide Level 28 MMOL/L (21-32) Anion Gap 9 mmol/L (5-15) Blood Urea Nitrogen 13 mg/dL (7-18) Creatinine 0.9 MG/DL (0.55-1.30) Estimat Glomerular Filtration Rate > 60 mL/min (>60) Glucose Level 519 MG/DL (74-106) *H Lactic Acid Level 1.20 mmol/L (0.4-2.0) Calcium Level 8.3 MG/DL (8.5-10.1) L Magnesium Level 1.8 MG/DL (1.8-2.4) Total Bilirubin 0.3 MG/DL (0.2-1.0) Aspartate Amino Transf (AST/SGOT) 13 U/L (15-37) L Alanine Aminotransferase (ALT/SGPT) 16 U/L (12-78) Alkaline Phosphatase 172 U/L (46-116) H Total Creatine Kinase 31 U/L (26-308) Troponin I 0.000 ng/mL (0.000-0.056) Total Protein 8.5 G/DL (6.4-8.2) H Albumin 2.0 G/DL (3.4-5.0) L Globulin 6.5 g/dL Albumin/Globulin Ratio 0.3 (1.0-2.7) L Human Chorionic Gonadotropin, Quant < 1 mIU/mL (1-6) L Urine Opiates Screen Negative (NEGATIVE) Urine Barbiturates Screen Negative (NEGATIVE) Phencyclidine (PCP) Screen Negative (NEGATIVE) Urine Amphetamines Screen Positive (NEGATIVE) H Urine Benzodiazepines Screen Negative (NEGATIVE) Urine Cocaine Screen Negative (NEGATIVE) Urine Marijuana (THC) Screen Negative (NEGATIVE) Acetone Level Negative (NEGATIVE) Microbiology Date/Time Source Procedure Growth Status 08/09/19 15:00 Rectum Received Height (Feet): 5 Height (Inches): 3.00 Weight (Pounds): 160 Medications Current Medications Medications (Trade) Dose Ordered Sig/Jazmyn Route PRN Reason Start Time Stop Time Status Last Admin Dose Admin Acetaminophen (Tylenol) 650 mg Q4H PRN ORAL Mild Pain (Pain Scale 1-3) 08/09/19 18:00 09/08/19 17:59 Acetaminophen (Tylenol) 650 mg Q4H PRN ORAL T>100.5 08/09/19 18:00 09/08/19 17:59 Acetaminophen/ Hydrocodone Bitart ([place] 5/325) 1 tab Q4H PRN ORAL Moderate Pain (Pain Scale 4-6) 08/09/19 18:00 08/16/19 17:59 08/09/19 19:39 Dextrose (Dextrose 50%) 25 ml Q30M PRN IV Hypoglycemia 08/09/19 18:00 09/08/19 17:59 Dextrose (Dextrose 50%) 50 ml Q30M PRN IV Hypoglycemia 08/09/19 18:00 09/08/19 17:59 Diphenhydramine HCl (Benadryl) 25 mg Q6H PRN ORAL Itching/Pruritis 08/09/19 18:00 09/08/19 17:59 Heparin Sodium (Porcine) (Heparin 5000 units/ml) 5,000 units EVERY 8 HOURS SUBQ 08/09/19 22:00 09/08/19 21:59 Insulin Aspart (NovoLOG) BEFORE MEALS AND HS SUBQ 08/09/19 21:00 09/08/19 20:59 Insulin Detemir (Levemir) 16 units BEDTIME SUBQ 08/09/19 21:00 09/08/19 20:59 Lorazepam (Ativan) 1 mg Q4H PRN ORAL For Anxiety 08/09/19 18:00 08/16/19 17:59 Magnesium Hydroxide (Mom) 30 ml HSPRN PRN ORAL Constipation 08/09/19 21:00 09/08/19 20:59 Ondansetron HCl (Zofran) 4 mg Q6H PRN IVP Nausea & Vomiting 08/09/19 18:00 09/08/19 17:59 Piperacillin Sod/ Tazobactam Sod 4.5 gm/Sodium Chloride 110 ml @ 27.5 mls/hr Q8HR@0400,1200,2000 IVPB 08/09/19 19:30 08/16/19 19:29 08/09/19 19:39 Sodium 1,000 ml @ 150 mls/hr Q6H40M IV 08/09/19 19:15 09/08/19 19:14 08/09/19 19:39 Vancomycin HCl (Vanco rx to dose) 1 ea DAILY PRN MISC Per rx protocol 08/09/19 18:00 09/08/19 17:59 Vancomycin HCl 750 mg/Sodium Chloride 275 ml @ 183.333 mls/hr Q8HR@0000,0800,1600 IVPB 08/10/19 00:00 08/15/19 00:00 Zolpidem Tartrate (Ambien) 5 mg HSPRN PRN ORAL Insomnia 08/09/19 21:00 08/16/19 20:59 Assessment/Plan Problem List: (1) Sepsis Assessment & Plan: This is a uncooperative 29-year-old female who presented with left arm cellulitis and abscess. Currently patient refusing examination does not allow dressings to be removed or arm examined. She does not allow visual examination at times that she covers the hand and says just leave it alone No nausea vomiting fever chills Tachycardia Positive amphetamine screen Leukocytosis Labs otherwise as above Unfortunately patient refuses current examination. I identified myself multiple times as a physician who is here to take care of her and care for her and that it is only my intent to provide the best possible care. I explained to her the importance of physical examination with cellulitis and an abscess especially in the extremity. I explained to her the significant risks she takes with out proper care if declined by her including potential loss of limb. Patient is alert awake and responsive. She is oriented to time place and name. She continues to refuse examination states that she has no interest in any further examination is already been done multiple times by other people prior. She states that she understands these risks and when asked for a feedback loop about this is able to easily repeat what I have said in the understanding of it. Given this only limited to continuing with IV antibiotics at this time. We will have psych see patient for evaluation as well. ICD Codes: A41.9 - Sepsis, unspecified organism SNOMED: [id number] (2) Cellulitis Assessment & Plan: iv abx fluids trend labs psych eval ICD Codes: L03.90 - Cellulitis, unspecified SNOMED: [id number] Kyree Gerard Aug 09, 2019 21:28
[2019-08-09] MEDS: NovoLOG Insulin Flexpen SUBQ SCH (21:32)
[2019-08-09] MEDS: Heparin 5000 units/ml inj SUBQ SCH (21:33)
[2019-08-09] MEDS: Vancomycin 750mg/NS 275ml IVPB SCH ×2 (23:51)
[2019-08-10] VITALS (7 sets, daily range): BP systolic 122–165; BP diastolic 69–108
[2019-08-10] MEDS: 1/2NS w/KCl 20mEq 1000ml 1,000 ML IV SCH ×4 (02:11→17:30)
[2019-08-10] MEDS: Piperacillin/Tazobactam 4.5 GM in NS 110 ML IVPB SCH ×3 (03:57→21:25)
[2019-08-10] MEDS: HYDROcodone/Acetamin 5/325 tab ORAL PRN ×2 (03:57→07:51)
--- NOTE | 2019-08-10 04:10 | NUR ---
NURSE NOTES: Pt is resting on the bed and confused agitated and yelling to staff. Resisting care. Pt refused cleaning, wound dressing and blood draw at this time. Explained benefits and risks but didn't understanding. Will continue to monitor any change of condition.
[2019-08-10] MEDS: Heparin 5000 units/ml inj SUBQ SCH ×4 (06:00→21:40)
[2019-08-10] MEDS: NovoLOG Insulin Flexpen SUBQ SCH ×4 (06:49→21:40)
--- NOTE | 2019-08-10 07:20 | NUR ---
HAND-OFF: Report given to ROMY Sommers. Pt is sleeping on the bed and no sign of acute distress noted. .
--- NOTE | 2019-08-10 07:50 | NUR ---
NURSE NOTES: received pt in the bed, awake, alert, vital signs stable, respiration regular, skin warm and dry to touch, left hand cellulitis, dressing intact, refuse to assess hand, tolerate diet well, IV site on RT wilberto GOVEA, fall precaution, bed in low position, call light within reach.
[2019-08-10] MEDS: Vancomycin 750mg/NS 275ml IVPB SCH ×4 (07:54→16:10)
--- NOTE | 2019-08-10 10:00 | NUR ---
NURSE NOTES: dr. Chaney saw pt, pt has PVC, trigeminy, dr. Chaney notified.
--- NOTE | 2019-08-10 10:59 | NUR ---
NURSE NOTES: wound nurse assess left hand, swollen, red, partially open with necrotic tissue, dressing applied, continue monitoring.
--- NOTE | 2019-08-10 11:00 | NUR ---
NURSE NOTES:WOUND CARE NOTES:Pt presented on admission with open abscess L wrist. Pt has been declining for staff and Surgeon to assess wound. Spoke to pt and informed that staff are here to help and by continuing to refuse care wound will worsen. Pt consented to have Wound nurse remove drsg,L wrist and L hand grossly swollen,colour of L wrist and L hand dusky. Large open abscess with surrounding denudement. Moderate amt purulent exudate noted. Necrotic area also noted within palm of L hand. Mild odor noted.Wound cleaned with Betadine. Xeroform Applied with ABD pad. Wrapped with Kerlix.Pt advised to keep L hand elevated on pillow. Tx.Plan: Clean with Betadine. Apply Xeroform Gauze. Cover with ABD pad and wrap with Kerlix Daily and prn. Warm compresses TID. Elevate L hand on pillow
--- NOTE | 2019-08-10 14:56 | Surgery Progress Note ---
Surgery Progress Note Subjective Additional Comments Patient seen and examined at bedside. Per report she has been very hostile, combative, noncooperative with nursing staff and care since admission. Patient refused labs this morning. Patient been refusing evaluation and care of her wound throughout the day. I evaluate the patient with the wound care nurse at the bedside nursing staff available we discussed with her how important it is for wound evaluation and care plan. Patient only stated she would allow wound evaluation if was given as quoted by name "Dilaudid". I expressed to the patient that if pain medication was necessary for wound care and evaluation I be happy to give her some and I need to evaluate the wound to see extent of disease process. Patient was then minimally compliant and allow dressings to be removed and wound evaluated. In identifying the hand it was very swollen and concerning. I expressed to the patient how important it is that she comply with care as her hand looks very concerning. Patient is not able to move her fingers and states that she they are numb. Patient states it is only happened recently yet wounds look chronic and edema looks a little bit more than a few days. Patient denies any trauma injection IVDA or other injury and states that it came out of nowhere only 2 to 3 days ago. Soon after minimal evaluation patient restricted further examination and became very combative disruptive and hostile. She began kicking and refused any further examination. I expressed to the patient how important is for care plan and evaluation yet she states the she does not care and does not want any treatment. I expressed the patient with how concerning her hand looks the strongly recommend potentially going to the operating room for further evaluation if pain is an issue and patient said under no circumstances will she be willing to go to the operating room and states that she is willing to lose her hand prior to an operation. Objective Last 24 Hour Vital Signs Date Time Temp Pulse Resp B/P (MAP) Pulse Ox O2 Delivery O2 Flow Rate FiO2 08/10/19 12:00 110 08/10/19 12:00 100.5 124 22 144/101 (115) 98 08/10/19 12:00 Room Air 08/10/19 08:21 99.1 08/10/19 08:00 120 08/10/19 08:00 98.1 111 20 144/89 (107) 99 08/10/19 08:00 Room Air 08/10/19 04:00 99.1 117 20 128/69 (88) 100 08/10/19 04:00 Room Air 08/10/19 04:00 117 08/10/19 00:00 Room Air 08/10/19 00:00 117 08/10/19 00:00 98.0 112 21 122/76 (91) 98 08/09/19 20:00 99.1 124 21 130/67 (88) 98 08/09/19 20:00 122 08/09/19 19:30 Room Air 08/09/19 18:48 99.1 121 26 142/93 (109) 95 08/09/19 17:57 98.9 08/09/19 17:44 98.9 130 20 145/89 97 Room Air 08/09/19 16:45 98.7 128 16 135/89 99 Room Air 08/09/19 15:44 98.9 08/09/19 14:50 98.3 127 15 128/90 100 Room Air I&O Intake and Output 08/09/19 08/10/19 19:00 07:00 Intake Total 3192.5 ml 2384.833 ml Output Total 3 ml Balance 3192.5 ml 2381.833 ml Intake Oral 360 ml IV Total 3192.5 ml 2024.833 ml Output Urine Total 3 ml # Voids 1 Dressing: saturated, other Wound: other Drains: other Cardiovascular: RSR Respiratory: clear Abdomen: soft, flat, non-tender, present bowel sounds Extremities: edema, tenderness, cyanosis, other Plan Problems: (1) Sepsis Assessment & Plan: This is a uncooperative 29-year-old female who presented with left arm cellulitis and abscess. Currently patient refusing examination does not allow dressings to be removed or arm examined. She does not allow visual examination at times that she covers the hand and says just leave it alone No nausea vomiting fever chills Tachycardia Positive amphetamine screen Leukocytosis Labs otherwise as above Unfortunately patient refuses current examination. I identified myself multiple times as a physician who is here to take care of her and care for her and that it is only my intent to provide the best possible care. I explained to her the importance of physical examination with cellulitis and an abscess especially in the extremity. I explained to her the significant risks she takes with out proper care if declined by her including potential loss of limb. Patient is alert awake and responsive. She is oriented to time place and name. She continues to refuse examination states that she has no interest in any further examination is already been done multiple times by other people prior. She states that she understands these risks and when asked for a feedback loop about this is able to easily repeat what I have said in the understanding of it. Given this only limited to continuing with IV antibiotics at this time. We will have psych see patient for evaluation as well. 08/10 Patient only stated she would allow wound evaluation if was given as quoted by name "Pierreid". I expressed to the patient that if pain medication was necessary for wound care and evaluation I be happy to give her some and I need to evaluate the wound to see extent of disease process. Patient was then minimally compliant and allow dressings to be removed and wound evaluated. In identifying the hand it was very swollen and concerning. I expressed to the patient how important it is that she comply with care as her hand looks very concerning. Patient is not able to move her fingers and states that she they are numb. Patient states it is only happened recently yet wounds look chronic and edema looks a little bit more than a few days. Patient denies any trauma injection IVDA or other injury and states that it came out of nowhere only 2 to 3 days ago. Soon after minimal evaluation patient restricted further examination and became very combative disruptive and hostile. She began kicking and refused any further examination. I expressed to the patient how important is for care plan and evaluation yet she states the she does not care and does not want any treatment. I expressed the patient with how concerning her hand looks the strongly recommend potentially going to the operating room for further evaluation if pain is an issue and patient said under no circumstances will she be willing to go to the operating room and states that she is willing to lose her hand prior to an operation. I have significant concern that patient may potentially lose her hand given the lack of mobility passive or active in the digits and fear the given the appearance on admission and currently the this is been ongoing for significant period of time and salvage may not even be possible given no neurosensory or motor in any of the 5 digits. The hand itself is significantly swollen there is an area of necrotic eschar on the palmar aspect. The wrist is significantly swollen and has an active infection with breakdown of skin that looks to have been ongoing for some time as the periwound is macerated the wound itself is open and seems to have drained pus in the past given its foul odor. I have discussed these findings with the patient's primary care physician and strongly recommended a psychiatric evaluation as soon as possible. Patient is awake alert responsive oriented to time place person and seems to have capacity. My current recommendations are considerations for going to the operating room for debridement drainage and wound evaluation inspection and cleaning and dressings. Patient is very strong that she does not want to go to the operating room under any circumstances and would rather lose her hand then be operated on. I expressed to patient that her poor choices should be strongly re -considered in the allowing for care even local care at the bedside is better than nothing but we strongly recommend maximal care plan given extremity. Patient uses significant profanity states that she does not care and does not want to be treated and just wants pain medication and food. Furthermore patient is very hostile aggressive and combative. I do have significant concerns for myself and the staff when evaluating her as she has the potential to be very aggressive and combative. (2) Cellulitis Assessment & Plan: iv abx fluids trend labs psych Kyree Gaona Aug 10, 2019 14:56
--- NOTE | 2019-08-10 17:30 | History and Physical Report ---
DATE OF ADMISSION: 08/09/2019 CHIEF COMPLAINT AND REASON FOR HOSPITALIZATION: The patient admitted with uncontrolled diabetes and infection of left hand. HISTORY OF PRESENT ILLNESS: The patient has history of poorly-controlled diabetes and presents with leukocytosis, painful swelling of left hand, and a glucose over 500. No DKA. The patient is agitated and a poor historian. She has positive drug screen for amphetamines. Apparently, the patient is homeless. She refuses to give any history except part surgery is section. She was hospitalized in the past in this hospital for left foot diabetic ulcer, uncontrolled diabetes, and intrauterine in 03/2019. PAST HISTORY AND REVIEW OF SYSTEMS: The patient refuses at this time. She wants to be left alone and go back to sleep. PHYSICAL EXAMINATION: VITAL SIGNS: Temperature 98.1, pulse 111, respiratory rate 20, and blood pressure 144/89. HEAD, EYES, EARS, NOSE, THROAT: There is no obvious scleral icterus. Oral mucosa appears moist. LUNGS: Clear. HEART: Regular rhythm with ectopics. ABDOMEN: Does not allow exam. EXTREMITIES: Show erythema and swelling in the dorsum of the left hand, but she does not allow detailed exam. PERTINENT LABORATORY DATA: White count 28.3, hemoglobin 11.3, and glucose 519 on admission with normal electrolytes. IMPRESSION: 1. Uncontrolled diabetes. 2. Abscess or cellulitis of left hand. 3. Amphetamine drug screen positive. 4. Agitated behavior. 5. Refusal of care at this point. PLAN: We will put her on insulin sliding scale and Levemir. Broad-spectrum antibiotics. I have requested surgical consultation, but she is uncooperative so far. We will try to get psychiatric consultation as well. Jared Chaney M.D. DR: Joanne JOB#: [id number] CC:
--- NOTE | 2019-08-10 17:30 | NUR ---
NURSE NOTES: pt refuse vancomycin trough, dr. Chaney notified, pharmacy aware.
[2019-08-10] MEDS ORDERED: LORazepam 1mg tab ORAL PRN (17:31)
[2019-08-10] MEDS ORDERED: Milk of Magnesia 30ml Ud ORAL PRN (17:31)
[2019-08-10] MEDS ORDERED: Zolpidem 5mg tab ORAL PRN (17:32)
--- NOTE | 2019-08-10 18:00 | NUR ---
NURSE NOTES: pt transferred to 3E as ordered, condition stable, report given to LIZETT STANTON.
--- NOTE | 2019-08-10 18:01 | NUR ---
NURSE NOTES: Received patient awake and alert via own bed from SDU. IV site at right antecubital, 20 gauge, infusing 1/2NS with 20mEq @ 150ml/hour. Oriented patient to room, Belongings reconciled. Bed at lowest level with 3 side rails up. Call light within reach. In no apparent distress at this time. Will continue to monitor.
--- NOTE | 2019-08-10 19:52 | NUR ---
HAND-OFF: Report given to ROMY Yoon.
[2019-08-10] MEDS ORDERED: Levemir Flexpen SUBQ SCH (21:00)
--- NOTE | 2019-08-10 22:17 | NUR ---
NURSE NOTE: Pt is A/Ox3, HR in the 120's, VS overall stable. Pt exhibits disruptive behaviors such as yelling and uses foul language towards typewriters functional tester. Pt educated on speaking to typewriters functional tester appropriately and to refrain from yelling. Pt given Ambien for apparent restlessness. Pt asked for multiple juices, sodas and puddings, requests denied given elevated blood sugar trend. Bed alarm activated and call thibodeaux is within reach, will continue to monitor.
--- NOTE | 2019-08-10 22:50 | NUR ---
Nurse Note: Pt refused Vancomycin trough to be drawn.
--- NOTE | 2019-08-11 00:18 | NUR ---
NURSE NOTE: Per pharmacy(Sonya from [facility]), the 0000 dose of Vancomycin should be held because this is the patient's second refusal, the trough is overdue. The pharmacy ordered a second order for a STAT Vancomycin trough but the patient refused this lab draw as well. Pt educated on the importance of having the lab drawn to be able to receive a necessary antibiotic for the healing of her hand but the pt still refused.
[2019-08-11] MEDS: 1/2NS w/KCl 20mEq 1000ml 1,000 ML IV SCH ×2 (00:28→06:25)
[2019-08-11] MEDS: Piperacillin/Tazobactam 4.5 GM in NS 110 ML IVPB SCH ×2 (04:21→13:14)
[2019-08-11 04:59] VITALS: BP 141/90
[2019-08-11 05:25] VITALS: BP 141/90
[2019-08-11] MEDS: NovoLOG Insulin Flexpen SUBQ SCH ×2 (06:21→11:52)
[2019-08-11] MEDS: Heparin 5000 units/ml inj SUBQ SCH (06:22)
[2019-08-11 08:00] VITALS: BP 130/92
--- NOTE | 2019-08-11 08:00 | NUR ---
NURSE NOTES: Received report from Karrie STANTON, pt a/a/o x4 laying in bed, pt c/o of pain on her left hand where she has her infection. she also stated that she wants to go home right now. IV not working properly, RN changed IV on the right FA gauge #22. running 1/2NS+20meq@150ml/hr. call light within reach, bed in lowest position, side rales up x2. - per report pt refused vanco trough x2 so not to give Vanco dosage this morning.
--- NOTE | 2019-08-11 08:30 | NUR ---
NURSE NOTES: RN spoke with pt regarding the importance of Vanco trough and the need to get the IV abx. pt verbalized understanding and agreed to have the vanco trough. - per pharmacist Anusha Mcwilliams pt must take the next two dosages of Vanco in orders for the Vanco trough to be accurate. per Anusha Mcwilliams pharmacist next vanco through needs to be done at 23:00 or else medication needs to be change to a different IV abx. I will f/u as needed.
[2019-08-11] MEDS ORDERED: Vancomycin 750 MG in NS 275 ML IVPB SCH ×3 (09:30)
--- NOTE | 2019-08-11 09:42 | NUR ---
NURSE NOTES: Received a call from lab s/w ady she report that pt is positive for MRSA nairs. Bridger MANRIQUEZ is also aware. RN will notify MD. I will f/u as needed.
[2019-08-11] MEDS ORDERED: Tubing IV Secondary IV ONE (10:23)
[2019-08-11] MEDS ORDERED: NS 275ml ONE (10:23)
--- NOTE | 2019-08-11 11:01 | NUR ---
NURSE NOTES: Given report to Kenia STANTON, pt in stable condition. Incoming nurse is aware that pt has been refused the Vanco trough x2, however pt agreed to have done today at 23:00.
--- NOTE | 2019-08-11 11:04 | NUR ---
NURSE NOTES: patient transferred from . under Dr. Chaney care. alert. oriented. verbally responsive. crying for pain on lt arm. no respiratory distress noted. IV on RFA22 running 1/2NS @100/hr. kerlix on left arm with cellulitis. dressing intact. contact isolation. PPE at all times. bed in the lowest position. call light within reach. alarm on. will continue to provide plan of care.
--- NOTE | 2019-08-11 11:22 | Surgery Progress Note ---
Surgery Progress Note Subjective Additional Comments continues to refuse treatment at times fortunately now allows for abx again but was not this AM does not allow for dressing change states not now and refuses for it to be evaluated still not cooperative despite multiple attempts at explaining the severity of her condition Objective Last 24 Hour Vital Signs Date Time Temp Pulse Resp B/P (MAP) Pulse Ox O2 Delivery O2 Flow Rate FiO2 08/11/19 09:51 98.1 08/11/19 09:00 Room Air 08/11/19 08:00 98.7 105 20 130/92 (105) 97 08/11/19 05:25 98.1 97 20 141/90 (107) 99 08/10/19 21:00 Room Air 08/10/19 20:00 Room Air 08/10/19 20:00 98.4 120 18 134/87 (103) 08/10/19 17:40 99.0 132 20 165/108 (127) 98 08/10/19 16:00 Room Air 08/10/19 16:00 122 08/10/19 16:00 100.2 119 20 140/86 (104) 98 08/10/19 12:00 110 08/10/19 12:00 100.5 124 22 144/101 (115) 98 08/10/19 12:00 Room Air I&O Intake and Output 08/10/19 08/11/19 18:59 06:59 Intake Total 1890.000 ml 925 ml Output Total 4 ml 1 ml Balance 1886.000 ml 924 ml Intake Oral 380 ml 475 ml IV Total 1510.000 ml 450 ml Output Urine Total 4 ml 1 ml Dressing: other Wound: other Drains: other Cardiovascular: other Respiratory: other Abdomen: other Extremities: other Plan Problems: (1) Sepsis Assessment & Plan: This is a uncooperative 29-year-old female who presented with left arm cellulitis and abscess. Currently patient refusing examination does not allow dressings to be removed or arm examined. She does not allow visual examination at times that she covers the hand and says just leave it alone No nausea vomiting fever chills Tachycardia Positive amphetamine screen Leukocytosis Labs otherwise as above Unfortunately patient refuses current examination. I identified myself multiple times as a physician who is here to take care of her and care for her and that it is only my intent to provide the best possible care. I explained to her the importance of physical examination with cellulitis and an abscess especially in the extremity. I explained to her the significant risks she takes with out proper care if declined by her including potential loss of limb. Patient is alert awake and responsive. She is oriented to time place and name. She continues to refuse examination states that she has no interest in any further examination is already been done multiple times by other people prior. She states that she understands these risks and when asked for a feedback loop about this is able to easily repeat what I have said in the understanding of it. Given this only limited to continuing with IV antibiotics at this time. We will have psych see patient for evaluation as well. 08/10 Patient only stated she would allow wound evaluation if was given as quoted by name "Montseaudid". I expressed to the patient that if pain medication was necessary for wound care and evaluation I be happy to give her some and I need to evaluate the wound to see extent of disease process. Patient was then minimally compliant and allow dressings to be removed and wound evaluated. In identifying the hand it was very swollen and concerning. I expressed to the patient how important it is that she comply with care as her hand looks very concerning. Patient is not able to move her fingers and states that she they are numb. Patient states it is only happened recently yet wounds look chronic and edema looks a little bit more than a few days. Patient denies any trauma injection IVDA or other injury and states that it came out of nowhere only 2 to 3 days ago. Soon after minimal evaluation patient restricted further examination and became very combative disruptive and hostile. She began kicking and refused any further examination. I expressed to the patient how important is for care plan and evaluation yet she states the she does not care and does not want any treatment. I expressed the patient with how concerning her hand looks the strongly recommend potentially going to the operating room for further evaluation if pain is an issue and patient said under no circumstances will she be willing to go to the operating room and states that she is willing to lose her hand prior to an operation. I have significant concern that patient may potentially lose her hand given the lack of mobility passive or active in the digits and fear the given the appearance on admission and currently the this is been ongoing for significant period of time and salvage may not even be possible given no neurosensory or motor in any of the 5 digits. The hand itself is significantly swollen there is an area of necrotic eschar on the palmar aspect. The wrist is significantly swollen and has an active infection with breakdown of skin that looks to have been ongoing for some time as the periwound is macerated the wound itself is open and seems to have drained pus in the past given its foul odor. I have discussed these findings with the patient's primary care physician and strongly recommended a psychiatric evaluation as soon as possible. Patient is awake alert responsive oriented to time place person and seems to have capacity. My current recommendations are considerations for going to the operating room for debridement drainage and wound evaluation inspection and cleaning and dressings. Patient is very strong that she does not want to go to the operating room under any circumstances and would rather lose her hand then be operated on. I expressed to patient that her poor choices should be strongly re -considered in the allowing for care even local care at the bedside is better than nothing but we strongly recommend maximal care plan given extremity. Patient uses significant profanity states that she does not care and does not want to be treated and just wants pain medication and food. Furthermore patient is very hostile aggressive and combative. I do have significant concerns for myself and the staff when evaluating her as she has the potential to be very aggressive and combative. (2) Cellulitis Assessment & Plan: iv abx fluids trend labs psych Kyree Gaona Aug 11, 2019 11:22
[2019-08-11 12:00] VITALS: BP 138/90
--- NOTE | 2019-08-11 13:55 | General Progress Note ---
Assessment/Plan Problem List: (1) Hyperglycemia ICD Codes: R73.9 - Hyperglycemia, unspecified SNOMED: 40615975 (2) Sepsis ICD Codes: A41.9 - Sepsis, unspecified organism SNOMED: 28325435 (3) Cellulitis ICD Codes: L03.90 - Cellulitis, unspecified SNOMED: 026643378 Assessment/Plan: I cannot place her on hold, rx for sxt glipizide metformin januvia Subjective Allergies: Coded Allergies: No Known Allergies (Unverified , 04/18/19) Subjective crying wants to go home, will not let MD drying can worker examine hand Objective Last 24 Hour Vital Signs Date Time Temp Pulse Resp B/P (MAP) Pulse Ox O2 Delivery O2 Flow Rate FiO2 08/11/19 12:00 98.4 102 20 138/90 (106) 97 08/11/19 09:51 98.1 08/11/19 09:00 Room Air 08/11/19 08:00 98.7 105 20 130/92 (105) 97 08/11/19 05:25 98.1 97 20 141/90 (107) 99 08/10/19 21:00 Room Air 08/10/19 20:00 Room Air 08/10/19 20:00 98.4 120 18 134/87 (103) 08/10/19 17:40 99.0 132 20 165/108 (127) 98 08/10/19 16:00 Room Air 08/10/19 16:00 122 08/10/19 16:00 100.2 119 20 140/86 (104) 98 Intake and Output 08/10/19 08/11/19 18:59 06:59 Intake Total 1890.000 ml 925 ml Output Total 4 ml 1 ml Balance 1886.000 ml 924 ml Intake Oral 380 ml 475 ml IV Total 1510.000 ml 450 ml Output Urine Total 4 ml 1 ml Height (Feet): 5 Height (Inches): 3.00 Weight (Pounds): 153 Jared Chaney MD Aug 11, 2019 13:55
--- NOTE | 2019-08-11 14:31 | NUR ---
NURSE NOTES: patient discharged AMA and left unit. Dr. Chaney prescribed new medications for the patient for discharge. patient refused to take the prescription upon discharge. RN explained risks and benefits to the patient. RN changed dressing on left arm. removed IV and ID band. checked belonging with the patient. RN obtained sign on AMA form, belonging check list. Patient is homeless in the record but Patient said she is going home where her baby's dad lives.
--- NOTE | 2019-08-13 07:57 | Discharge Summary ---
Discharge Summary Discharge Summary _ DATE OF ADMISSION: 08/09/2019 DATE OF DISCHARGE: 08/11/2019 Patient left AGAINST MEDICAL ADVICE REASON FOR ADMISSION: 29 years old female with past medical history of poorly controlled diabetes mellitus , presented wit left hand pain and glucose over 500 . No DKA. Patient was agitated. Urine toxicology screen was positive for amphetamine. Patient homeless. Patient refused to provide any history. Upon evaluation laboratory work-up revealed leukocytosis with WBC 28.3, hemoglobin 11.3. Glucose 519. Stable electrolytes. Patient subsequently admitted for cellulitis left hand and uncontrolled diabetes. CONSULTANTS: surgery Dr. Gerard [facility] COURSE: Patient admitted to medical surgical floor and started on broad-spectrum antibiotic. Blood sugar was managed with long-acting Levemir and sliding scale of insulin. Diabetic diet provided. Patient was encouraged compliance with medication and diet. Surgery consult was requested. Patient did not allow visual examination . Surgery recommended continue antibiotic at this time. Pain management was addressed as needed. Psychiatric consultation was requested. Patient decided to leave AGAINST MEDICAL ADVICE. Patient was prescribed glipizide, metformin, and Januvia and encouraged compliance with medication regimen. The risks and consequences of signing AGAINST MEDICAL ADVICE were discussed with patient in detail. Patient verbalized understanding, nevertheless signed AMA form and left.. FINAL DIAGNOSES: Probably sepsis Cellulitis left hand Hyperglycemia Diabetes mellitus [id number] Agitated behavior Amphetamine abuse Refusal of care I have been assigned to dictate discharge summary for this account. I was not involved in the patient's management. Ioana Childs NP Aug 13, 2019 07:57
== END 2019-08-11 14:50 | disposition left against medical advice (07) | DRG 720 ==
LOC: EMR 12:51 → EDBEDREQ 14:25 → EDBEDREQSVC 14:25 → EDBEDREQ 14:29 → 2W 15:00 → EDBEDREQSVC 15:27 → EDBEDREQ 15:27 → 3E 08-10 18:11 → 4E 08-11 10:57
DX: A41.9 Sepsis, unspecified organism (principal); L02.414 Cutaneous abscess of left upper limb; L03.114 Cellulitis of left upper limb; E11.65 Type 2 diabetes mellitus with hyperglycemia; F15.10 Other stimulant abuse, uncomplicated; R45.1 Restlessness and agitation; Z53.29 Procedure and treatment not carried out because of patient's decision for other reasons; Z59.0 Homelessness
CPT/HCPCS: 36415; 80053; 80307; 81001; 82009; 82550; 82962; 83605; 83735; 84484; 84702; 85007; 85025; 86850; 86900; 86901; 87040; 87070; 87081; 87181; 87205; 93005; 96361; 96365; 96367; 96375; 99285; J1815; J2405; J7030; S5561

== ENCOUNTER 2019-12-05 13:57 | Emergency (ER) | payer MEDICAID, OTHER ==
[~2019-12-05] VITALS: Ht 160 cm; Wt 59.0 kg
[2019-12-05] MEDS ORDERED: Cephalexin 500mg cap ORAL ONE (14:15)
--- NOTE | 2019-12-05 14:17 | Emergency Room Report ---
History of Present Illness General Chief Complaint: Upper Extremity Injury Source: Patient Present Illness HPI Patient is a 29-year-old female presents after increased hand pain she reports having increased pain to her. Finger after injury in a car door. She reports having the finger. Pain is worse with movement. Reports having some swelling to the opposite hand as well but denies any recent trauma. Denies any fever. COVID-19 risk:Travel to affect: No Allergies: Coded Allergies: No Known Allergies (Unverified , 04/18/19) Patient History Past Medical History: see triage record Now: No Reviewed Nursing Documentation: PMH: Agreed; PSxH: Agreed Nursing Documentation-PMH Past Medical History: No History, Except For Hx Cardiac Problems: No Hx Diabetes: Yes - DM type 2 Hx Cancer: No Hx Gastrointestinal Problems: No Hx Neurological Problems: No Review of Systems All Other Systems: negative except mentioned in HPI Physical Exam Vital Signs Date Time Temp Pulse Resp B/P (MAP) Pulse Ox O2 Delivery O2 Flow Rate FiO2 12/05/19 14:04 98.1 70 16 115/76 (89) 95 Room Air General Appearance: well appearing, no apparent distress, GCS 15 Head: normocephalic, atraumatic ENT: hearing grossly normal, normal voice Neck: full range of motion, supple Respiratory: lungs clear, normal breath sounds, no respiratory distress, speaking full sentences Cardiovascular #1: normal inspection Musculoskeletal: other - Finger distal phalanx swelling, both hands, no bruising or lacerations Neurologic: normal gait Psychiatric: mood/affect normal Skin: no rash Procedures Incision and Drainage Incision and Drainage : Blade Size: 11 I & D Procedure: betadine prep Wound Location: face, upper extremity Wound's Depth, Shape: superficial Wound Length (cm): 0 Wound Explored: clean Anesthesia: 1% Lidocaine Volume Anesthetic (ccs): 1 Patient Tolerated: Well Complications: None Progress moderate amount of purulent drainage to both fingers. Medical Decision Making Diagnostic Impression: Primary Impression: Paronychia ER Course Patient presented for fingertip pain. Differential diagnosis include was not limited to fracture, paronychial infection, contusion among others. Patient's x -rays did not show any evidence of acute fracture. There is soft tissue swelling noted. Patient was consented for incision and drainage. Area was sterilely prepped and anesthetized. Drained moderate amount of purulent material from both middle fingers. Patient tolerated this well. There is no significant blood loss. Patient was advised to follow-up with her primary care physician for recheck. She was given prescriptions for antibiotics as well as pain medications. Advised to return if worse. This medical record is generated with [employer] card grinder software. There may be some card grinder discrepancies related to use of this software Last Vital Signs Date Time Temp Pulse Resp B/P (MAP) Pulse Ox O2 Delivery O2 Flow Rate FiO2 12/05/19 14:04 98.1 70 16 115/76 (89) 95 Room Air Status: improved Disposition: HOME, SELF-CARE Condition: Stable Scripts Ibuprofen* (MOTRIN*) 600 Mg Tablet 600 MG ORAL Q6H PRN for For Pain, #20 TAB Prov: Ramses Jacobs MD 12/05/19 Cephalexin* (KEFLEX*) 500 Mg Capsule 500 MG ORAL EVERY 6 HOURS, #28 CAP Prov: Ramses Jacobs MD 12/05/19 Ramses Jacobs MD Dec 05, 2019 14:17
[2019-12-05 14:23] VITALS: BP 115/76
--- NOTE | 2019-12-05 14:24 | NUR ---
ED Nurse Note:pt. came with infected and swallen tip of left middle finger, given pain meds and antibiotics
[2019-12-05] MEDS ORDERED: IBUPROFEN600 MG ORAL (14:56)
[2019-12-05] MEDS ORDERED: CEPHALEXIN500 MG ORAL (14:56)
[2019-12-05] MEDS ORDERED: Lidocaine 1% MPF 10mg/ml 5ml INJ ONE (15:30)
[2019-12-05 16:00] VITALS: BP 115/76
--- NOTE | 2019-12-05 16:00 | NUR ---
ER DISCHARGE NOTE:prescriptions were faxed to [facility], pt. received bus card, also food and clothes were provided Patient is cleared to be discharged per ERMD, pt is aox4, on room air, with stable vital signs. pt was given dc and prescription and assisted resourses instructions, pt was able to verbalize understanding pt is able to ambulate with steady gait. pt took all belongings.
--- NOTE | 2019-12-05 16:29 | Diagnostic Imaging Report ---
Indication: Extremely sore fingers, especially the third finger Technique: 3 views of the fingers, contrast reaching of the third finger Comparison: none Findings: No acute fractures. No dislocations. Unusual pointed morphology of the terminal tuft of the first distal phalanx, may be developmental or indicate chronic erosive or posttraumatic changes. No radiopaque foreign body Impression: No acute bony trauma
--- NOTE | 2019-12-05 16:30 | Diagnostic Imaging Report ---
Indication: Pain in the first and third digit Technique: 3 views left fingers Comparison: none Findings: No acute fractures. No dislocations. The joint spaces are preserved. No radiopaque foreign body Impression: Negative
== END 2019-12-05 16:00 | disposition home or self-care (01) ==
LOC: EMR 14:35
DX: L03.012 Cellulitis of left finger (principal); L03.011 Cellulitis of right finger; E11.9 Type 2 diabetes mellitus without complications
CPT/HCPCS: 10061; 73140; Z7502; 99283

== ENCOUNTER 2019-12-24 09:47 | Inpatient (IN) | payer MEDICAID ==
[~2019-12-24] VITALS: Ht 160 cm; Wt 55.8 kg
[~2019-12-24 09:47] MED LIST changes: +CEPHALEXIN500 MG ORAL; +IBUPROFEN600 MG ORAL
[2019-12-24 09:58] VITALS: BP 113/76
--- NOTE | 2019-12-24 10:06 | NUR ---
ED Nurse Note: Pt walked in due to severe swelling, bruising and pain of bilateral hand and middle fingers started yesterday. Pt was seene here weeks ago with dx paronychia. Pt admits on biting on her fingers. AAOx4, ambulatory. Denies flu symptoms.
--- NOTE | 2019-12-24 10:13 | Emergency Room Report ---
History of Present Illness General Chief Complaint: Skin Rash/Abscess Source: Patient Present Illness HPI Disclaimer: Please note that this report is being documented using [employer] technology. This can lead to erroneous entry secondary to incorrect interpretation by the dictating instrument. HPI: 29-year-old female history of diabetes presents for evaluation of finger pain and swelling. Patient was seen in the emergency department approximately 2 weeks ago for finger infection. Paronychia were drained and she was prescribed antibiotics. She did not take these antibiotics stating that they were either lost or stolen. She chews on her nails and fingers frequently and does a lot of skin picking. Noted worsening pain and swelling over the past 2 days. Difficulty with flexion and extension in both middle fingers. There is purulent drainage from the distal pad of the left middle finger. Denies fever. Denies nausea, vomiting, chest pain, palpitations, new trauma to the hands. PMH: Diabetic PSH: Reviewed Allergies: None reported Allergies: Coded Allergies: No Known Allergies (Unverified , 04/18/19) COVID-19 Screening Contact w/high risk pt: No Recent Travel to affected area: No Experienced COVID-19 symptoms?: No Patient History Last Menstrual Period: unknown Nursing Documentation-PMH Past Medical History: No History, Except For Hx Cardiac Problems: No Hx Diabetes: Yes Hx Cancer: No Hx Gastrointestinal Problems: No Hx Neurological Problems: No Review of Systems All Other Systems: negative except mentioned in HPI Physical Exam Vital Signs Date Time Temp Pulse Resp B/P (MAP) Pulse Ox O2 Delivery O2 Flow Rate FiO2 12/24/19 09:58 97.9 112 16 113/76 96 Room Air General: Awake and alert, uncomfortable, in pain HEENT: NC/AT. EOMI. Moist mucous membranes. Cardiovascular: Tachycardic. S1 and S2 normal. No murmur appreciated Resp: Normal work of breathing. No cough, wheezing or crackles appreciated Abdomen: Abdomen is soft, nondistended. Nontender Skin: Purulent drainage from the distal pad of the left middle finger. Bilateral edema of the middle fingers. Ecchymotic changes. MSK: Normal tone and bulk. Bilateral edema and ecchymosis over the middle fingers. There is an open area of purulent drainage over the distal pad of the left middle finger. Pain with passive flexion and extension. Neuro: Awake and alert. Mentating appropriately. Medical Decision Making Diagnostic Impression: Primary Impression: Cellulitis of finger Additional Impression: Hyperglycemia ER Course Is a 29-year-old female presenting for evaluation of bilateral middle finger pain and swelling. Differential includes was not limited to cellulitis, paronychia, felon, abscess, flexor tenosynovitis. X-rays performed on last ER visit showed no fractures. Patient denies new injury. Concern for possible deep space infection. Will admit for IV antibiotics. Have consulted Dr. Ortiz, for hand surgical consult. We will see the patient and possibly take for OR washout as needed. Blood culture sent. Will provide pain medication. Laboratory Tests Test 12/24/19 10:25 White Blood Count 17.4 K/UL (4.8-10.8) H Red Blood Count 4.58 M/UL (4.20-5.40) Hemoglobin 12.4 G/DL (12.0-16.0) Hematocrit 38.0 % (37.0-47.0) Mean Corpuscular Volume 83 FL (80-99) Mean Corpuscular Hemoglobin 27.0 PG (27.0-31.0) Mean Corpuscular Hemoglobin Concent 32.5 G/DL (32.0-36.0) Red Cell Distribution Width 12.1 % (11.6-14.8) Platelet Count 501 K/UL (150-450) H Mean Platelet Volume 6.1 FL (6.5-10.1) L Neutrophils (%) (Auto) 76.4 % (45.0-75.0) H Lymphocytes (%) (Auto) 14.2 % (20.0-45.0) L Monocytes (%) (Auto) 5.3 % (1.0-10.0) Eosinophils (%) (Auto) 3.3 % (0.0-3.0) H Basophils (%) (Auto) 0.8 % (0.0-2.0) Prothrombin Time 9.8 SEC (9.30-11.50) Prothrombin Time INR 0.9 (0.9-1.1) Activated Partial Thromboplast Time 29 SEC (23-33) Sodium Level 133 MMOL/L (136-145) L Potassium Level 4.3 MMOL/L (3.5-5.1) Chloride Level 96 MMOL/L (98-107) L Carbon Dioxide Level 23 MMOL/L (21-32) Anion Gap 14 mmol/L (5-15) Blood Urea Nitrogen 27 mg/dL (7-18) H Creatinine 1.0 MG/DL (0.55-1.30) Estimated Glomerular Filtration Rate > 60 mL/min (>60) Glucose Level 498 MG/DL (74-106) H Calcium Level 9.2 MG/DL (8.5-10.1) Reevaluation Time: 12:06 Last Vital Signs Date Time Temp Pulse Resp B/P (MAP) Pulse Ox O2 Delivery O2 Flow Rate FiO2 12/24/19 09:58 97.9 112 16 113/76 (88) 96 Room Air Reevaluation Impression Labs show an elevated white count with neutrophil predominance. Hyperglycemia without gap. Patient given insulin and continues IV fluids. Antibiotics are started. Will admit to panel physician for further care of hand cellulitis. Disposition: ADMITTED INPATIENT Condition: Serious Scripts No Active Prescriptions or Reported Meds Referrals: NOT CHOSEN IPA/,REFERRING (PCP) Casimiro Loya MD Dec 24, 2019 10:13
[2019-12-24] MEDS ORDERED: HYDROcodone/Acetamin 7.5/325 tab ORAL ONE (10:15)
[2019-12-24] MEDS ORDERED: Vancomycin 1 GM in NS 275 ML IVPB ONE (10:15)
--- NOTE | 2019-12-24 10:41 | NUR ---
ED Nurse Note: Collected blood specimen. MRSA/VRE/CRE swabs then sent.
[2019-12-24 10:45] LABS: BASOPHILS % (AUTO) 0.8 % (0.0-2.0); EOSINOPHILS % (AUTO) 3.3 % (0.0-3.0); HEMOGLOBIN 12.4 G/DL (12.0-16.0); LYMPHOCYTES % (AUTO) 14.2 % (20.0-45.0); MEAN CORPUSCULAR VOLUME 83 FL (80-99); MONOCYTES % (AUTO) 5.3 % (1.0-10.0); NEUTROPHILS % (AUTO) 76.4 % (45.0-75.0); PLATELET COUNT 501 K/UL (150-450); RED BLOOD COUNT 4.58 M/UL (4.20-5.40); RED CELL DISTRIBUTION WIDTH 12.1 % (11.6-14.8); WHITE BLOOD COUNT 17.4 K/UL (4.8-10.8)
[2019-12-24 10:52] LABS: INR 0.9 (0.9-1.1)
[2019-12-24 10:54] LABS: ANION GAP 14 mmol/L (5-15); BLOOD UREA NITROGEN 27 mg/dL (7-18); CALCIUM 9.2 MG/DL (8.5-10.1); CARBON DIOXIDE 23 MMOL/L (21-32); CHLORIDE 96 MMOL/L (98-107); POTASSIUM 4.3 MMOL/L (3.5-5.1); SODIUM 133 MMOL/L (136-145)
[2019-12-24] MEDS ORDERED: Insulin Human Regular 100units/ml 3ml IV ONE (11:15)
[2019-12-24 13:08] VITALS: BP 97/63
--- NOTE | 2019-12-24 13:19 | NUR ---
Note misha in EDM - 12/24/19 at 1322 by BUT[facility] ED Nurse Note: pt was taken to Surgery accompanied by 2 RN in stable condition. paper work given to ROMY beasley. pt belongings is with nursing supervisor quality control.
--- NOTE | 2019-12-24 13:20 | NUR ---
ED Nurse Note: REPORT GIVEN TO ROMY WILHELM MS
--- NOTE | 2019-12-24 13:21 | NUR ---
ED Nurse Note: pt brought up to room 417 via w/c accompanied by RN in stable condition. IV site intact. Belonging list signed off.
--- NOTE | 2019-12-24 13:33 | NUR ---
NURSE NOTES: Patient is admitted from ER via wheelchair in stable condition. RA. Pt is ambulatory. IV on LFA 20g noted, running bolus of NS. Swelling on L hand noted. Belongings were accounted. Orientation on new unit given. Paged dr. Castillo for admission for order and awaiting. Side rails x 2. Bed in the lowest and locked. Call light within reach. Will continue to monitor
[2019-12-24] MEDS: Piperacillin/Tazobactam 3.375 GM in NS 110 ML IVPB SCH ×2 (15:23→22:12)
[2019-12-24] MEDS ORDERED: HYDROcodone/Acetamin 10/325 tab ORAL PRN ×2 (15:30)
[2019-12-24 16:00] VITALS: BP 113/67
[2019-12-24] MEDS ORDERED: Vancomycin 500mg/D5W 110ml IVPB SCH ×2 (16:00)
--- NOTE | 2019-12-24 16:08 | NUR ---
HOUSEKEEPING SUPERVISOR NOTE SW attempted to meet w/ pt to assess her needs but pt was sleeping. SW will attempt on the next day.
[2019-12-24] MEDS: Morphine Sulfate 4mg/ml Inj (IV USE ONLY) IVP PRN ×2 (16:16→20:33)
[2019-12-24] MEDS: NovoLOG Insulin Flexpen SUBQ SCH ×3 (16:39→20:50)
--- NOTE | 2019-12-24 17:36 | Consultation ---
History of Present Illness General Date patient seen: Dec 24, 2019 Reason for Hospitalization: Skin Rash/Abscess Present Illness HPI 29-year-old female history of diabetes presents for evaluation of finger pain and swelling. Patient was seen in the emergency department approximately 2 weeks ago for finger infection. Paronychia were drained and she was prescribed antibiotics. She did not take these antibiotics stating that they were either lost or stolen. She chews on her nails and fingers frequently and does a lot of skin picking. Noted worsening pain and swelling over the past 2 days. Difficulty with flexion and extension in both middle fingers. There is purulent drainage from the distal pad of the left middle finger. Denies fever. Denies nausea, vomiting, chest pain, palpitations, new trauma to the hands. Surgery called to evaluate and assist with care given cellulitis extremity. she is well known to me from prior admission. she is non compliant with care and has history of picking at her fingers and skin when on drugs. Allergies: Coded Allergies: No Known Allergies (Unverified , 04/18/19) COVID-19 Screening Contact w/high risk pt: No Recent Travel to affected area: No Experienced COVID-19 symptoms?: No Medication History No Active Prescriptions or Reported Meds Patient History History Provided By: Patient, Medical Record, PMD Healthcare decision maker Resuscitation status Full Code Advanced Directive on File Past Medical/Surgical History Past Medical/Surgical History: (1) Sepsis (2) Cephalohematoma (3) Cellulitis (4) Foot infection (5) Diabetes mellitus out of control (6) Finger injury (7) Hyperglycemia (8) Cellulitis of finger Review of Systems Review of Symptoms General ROS: no weight loss or fever Psychological ROS: no depression or mood changes, no memory loss Ophthalmic ROS: no visual changes or eye irritation ENT ROS: no nasal congestion, hearing loss, dizziness Allergy and Immunology ROS: no allergic symptoms or urticaria Hematological and Lymphatic ROS: no swollen glands, unusual bleeding or bruising Endocrine ROS: no polyuria, polydipsia, weight changes, temperature intolerance Respiratory ROS: no cough, shortness of breath, or wheezing Cardiovascular ROS: no chest pain or dyspnea on exertion Gastrointestinal ROS: denies abdominal pain, bright red blood in stool. Musculoskeletal ROS: no myalgias or arthralgias Neurological ROS: no TIA or stroke symptoms Dermatological ROS: no new or changing skin lesions, rashes or pruritis Physical Exam Physical Exam General appearance: alert, cooperative, no distress, appears stated age Head: Normocephalic, without obvious abnormality, atraumatic Eyes: conjunctivae/corneas clear. PERRL, EOM's intact. Fundi benign Throat: Lips, mucosa, and tongue normal. Teeth and gums normal Neck: supple, symmetrical, trachea midline, no adenopathy, thyroid: not enlarged, symmetric, no tenderness/mass/nodules, no carotid bruit and no JVD Lungs: clear to auscultation bilaterally Heart: regular rate and rhythm, S1, S2 normal, no murmur, click, rub or gallop Abdomen: soft, non-tender. Bowel sounds normal. No masses, no organomegaly Extremities: extremities see below Pulses: 2+ and symmetric Skin: Skin color, texture, turgor normal. No rashes or lesions Neurologic: Grossly normal Last 24 Hour Vital Signs Date Time Temp Pulse Resp B/P (MAP) Pulse Ox O2 Delivery O2 Flow Rate FiO2 12/24/19 16:00 98.7 123 19 113/67 (82) 99 12/24/19 13:46 Room Air 12/24/19 13:21 98.0 101 19 130/88 98 Room Air 12/24/19 13:08 98.1 107 16 97/63 99 Room Air 12/24/19 09:58 97.9 112 16 113/76 (88) 96 Room Air 12/24/19 09:58 97.9 112 16 113/76 96 Room Air Laboratory Tests Test 12/24/19 10:25 White Blood Count 17.4 K/UL (4.8-10.8) H Red Blood Count 4.58 M/UL (4.20-5.40) Hemoglobin 12.4 G/DL (12.0-16.0) Hematocrit 38.0 % (37.0-47.0) Mean Corpuscular Volume 83 FL (80-99) Mean Corpuscular Hemoglobin 27.0 PG (27.0-31.0) Mean Corpuscular Hemoglobin Concent 32.5 G/DL (32.0-36.0) Red Cell Distribution Width 12.1 % (11.6-14.8) Platelet Count 501 K/UL (150-450) H Mean Platelet Volume 6.1 FL (6.5-10.1) L Neutrophils (%) (Auto) 76.4 % (45.0-75.0) H Lymphocytes (%) (Auto) 14.2 % (20.0-45.0) L Monocytes (%) (Auto) 5.3 % (1.0-10.0) Eosinophils (%) (Auto) 3.3 % (0.0-3.0) H Basophils (%) (Auto) 0.8 % (0.0-2.0) Prothrombin Time 9.8 SEC (9.30-11.50) Prothromb Time International Ratio 0.9 (0.9-1.1) Activated Partial Thromboplast Time 29 SEC (23-33) Sodium Level 133 MMOL/L (136-145) L Potassium Level 4.3 MMOL/L (3.5-5.1) Chloride Level 96 MMOL/L (98-107) L Carbon Dioxide Level 23 MMOL/L (21-32) Anion Gap 14 mmol/L (5-15) Blood Urea Nitrogen 27 mg/dL (7-18) H Creatinine 1.0 MG/DL (0.55-1.30) Estimat Glomerular Filtration Rate > 60 mL/min (>60) Glucose Level 498 MG/DL (74-106) H Calcium Level 9.2 MG/DL (8.5-10.1) Microbiology Date/Time Source Procedure Growth Status 12/24/19 10:25 Rectum Received Height (Feet): 5 Height (Inches): 4.00 Weight (Pounds): 125 Medications Current Medications Medications (Trade) Dose Ordered Sig/Jazmyn Route PRN Reason Start Time Stop Time Status Last Admin Dose Admin Acetaminophen (Tylenol) 650 mg Q4H PRN ORAL Mild Pain (Pain Scale 1-3) 12/24/19 13:45 01/23/20 13:44 Acetaminophen/ Hydrocodone Bitart ([place] 10/325) 1 tab Q4H PRN ORAL Pain Scale (3-6) 12/24/19 15:30 12/31/19 15:29 Dextrose (Dextrose 50%) 25 ml Q30M PRN IV Hypoglycemia 12/24/19 14:15 03/23/20 14:14 Dextrose (Dextrose 50%) 50 ml Q30M PRN IV Hypoglycemia 12/24/19 14:15 03/23/20 14:14 Insulin Aspart (NovoLOG) BEFORE MEALS AND HS SUBQ 12/24/19 16:30 03/23/20 16:29 12/24/19 16:39 Morphine Sulfate (Morphine Sulfate) 5 mg Q3H PRN IVP Severe Pain (Pain Scale 7-10) 12/24/19 15:30 12/31/19 15:29 12/24/19 16:16 Piperacillin Sod/ Tazobactam Sod 3.375 gm/Sodium Chloride 110 ml @ 27.5 mls/hr EVERY 8 HOURS IVPB 12/24/19 15:00 12/29/19 14:59 12/24/19 15:23 Vancomycin HCl (Vanco rx to dose) 1 ea DAILY PRN MISC Per rx protocol 12/24/19 13:45 01/23/20 13:44 Vancomycin HCl 1 gm/Dextrose 275 ml @ 183.708 mls/hr Q12HR@1000,2200 IVPB 12/24/19 22:00 12/29/19 21:59 Assessment/Plan Problem List: (1) Cellulitis of finger Assessment & Plan: bilateral hand cellulitis. left hand middle finger very swollen given location Dr[facility] plastic surgery to eval and I&D abx elevate hand local care with hand washing will follow with recs thank you ICD Codes: L03.019 - Cellulitis of unspecified finger SNOMED: 39046729 (2) Hyperglycemia ICD Codes: R73.9 - Hyperglycemia, unspecified SNOMED: 94868772 (3) Cephalohematoma ICD Codes: P12.0 - Cephalhematoma due to injury SNOMED: 12756648 (4) Cellulitis ICD Codes: L03.90 - Cellulitis, unspecified SNOMED: 493914588 (5) Finger injury ICD Codes: S69.90XA - Unspecified injury of unspecified wrist, hand and finger( s), initial encounter SNOMED: 56471563 (6) Sepsis ICD Codes: A41.9 - Sepsis, unspecified organism SNOMED: 57490556 (7) Foot infection ICD Codes: L08.9 - Local infection of the skin and subcutaneous tissue, unspecified SNOMED: 702635048 (8) Diabetes mellitus out of control ICD Codes: E11.65 - Type 2 diabetes mellitus with hyperglycemia SNOMED: 51266944, 385040707 Kyree Gerard Dec 24, 2019 17:35
--- NOTE | 2019-12-24 19:07 | NUR ---
HAND-OFF: Report given to ROMY Hansen.
[2019-12-24 20:00] VITALS: BP 105/69
--- NOTE | 2019-12-24 20:00 | NUR ---
NURSE NOTES: Received patient awake in bed, able to verbalize needs, IV access patent, no s/s of acute distress. Blood sugar to be monitored per MD order. Bilateral middle fingers swollen, painful. Patient c/o 8/10 pain, will administer pain medication per MD order. Gave patient sandwich and juice per patient request.
[2019-12-24] MEDS: Vancomycin 1gm in D5W 275ml IVPB SCH (20:11)
[2019-12-25] VITALS (12 sets, daily range): BP systolic 83–119; BP diastolic 50–80
[2019-12-25] MEDS: Morphine Sulfate 4mg/ml Inj (IV USE ONLY) IVP PRN ×4 (04:13→22:10)
[2019-12-25] MEDS: Piperacillin/Tazobactam 3.375 GM in NS 110 ML IVPB SCH ×3 (05:21→22:10)
[2019-12-25] MEDS: NovoLOG Insulin Flexpen SUBQ SCH ×4 (05:57→20:05)
[2019-12-25 07:01] LABS: ANION GAP 7 mmol/L (5-15); BLOOD UREA NITROGEN 16 mg/dL (7-18); CALCIUM 8.5 MG/DL (8.5-10.1); CARBON DIOXIDE 25 MMOL/L (21-32); CHLORIDE 95 MMOL/L (98-107); CREATININE 0.7 MG/DL (0.55-1.30); POTASSIUM 4.2 MMOL/L (3.5-5.1); SODIUM 127 MMOL/L (136-145)
--- NOTE | 2019-12-25 07:32 | NUR ---
HAND-OFF: Report given to ROMY Aquino.
--- NOTE | 2019-12-25 07:36 | NUR ---
NURSE NOTES: received report from ROMY Zavala. patient in bed,A&Ox4. verbally responsive. no respiratory distress noted. pain on both hands. swollen both mid fingers. IV on LFA intact. saline lock. ambulatory. bed in the lowest position and locked. call light within reach. will continue to provide plan of care,
[2019-12-25] MEDS ORDERED: LR 1000ml 1,000 ML IV SCH (07:45)
--- NOTE | 2019-12-25 07:46 | Pre-Procedure Note/Attestation ---
Pre-Procedure Note/Attestation Complete Prior to Procedure Planned Procedure: right Procedure Narrative: Right middle finger exploration, incision and drainage of abscess Indications for Procedure Pre-Operative Diagnosis: Right middle finger abscess Attestation I attest that I discussed the nature of the procedure; its benefits; risks and complications; and alternatives (and the risks and benefits of such alternatives ), prior to the procedure, with the patient (or the patient's legal marketing representative). I attest that, if there was a reasonable possibility of needing a blood transfusion, the patient (or the patient's legal marketing representative) was given the [facility] standardized written summary, pursuant to the [place] Blood Safety Act ([place] Health and Safety Code # 1645, as amended). I attest that I re-evaluated the patient just prior to the surgery and that there has been no change in the patient's H&P, except as documented below: David Ortiz MD Dec 25, 2019 07:46
--- NOTE | 2019-12-25 07:59 | Pre-Procedure Note/Attestation ---
Pre-Procedure Note/Attestation Complete Prior to Procedure Planned Procedure: bilateral Procedure Narrative: bilateral middle finger exploration, incision and drainage of abscesses. Indications for Procedure Pre-Operative Diagnosis: bilateral middle finger abscesses Attestation I attest that I discussed the nature of the procedure; its benefits; risks and complications; and alternatives (and the risks and benefits of such alternatives ), prior to the procedure, with the patient (or the patient's legal contact representative). I attest that, if there was a reasonable possibility of needing a blood transfusion, the patient (or the patient's legal contact representative) was given the [facility] standardized written summary, pursuant to the [place] Blood Safety Act ([place] Health and Safety Code # 1645, as amended). I attest that I re-evaluated the patient just prior to the surgery and that there has been no change in the patient's H&P, except as documented below: David Ortiz MD Dec 25, 2019 07:59
[2019-12-25] MEDS: Vancomycin 1gm in D5W 275ml IVPB SCH (09:30)
--- NOTE | 2019-12-25 11:20 | Surgery Progress Note ---
Surgery Progress Note Subjective Additional Comments plan for I&D by plastics today states she feels okay no n/v/f/c Objective Last 24 Hour Vital Signs Date Time Temp Pulse Resp B/P (MAP) Pulse Ox O2 Delivery O2 Flow Rate FiO2 12/25/19 09:00 Room Air 12/25/19 08:00 97.6 118 20 119/73 (88) 98 12/25/19 04:00 98.6 12/25/19 04:00 97.6 116 20 116/73 (87) 99 12/25/19 00:00 98.6 117 20 112/66 (81) 99 12/24/19 21:23 Room Air 12/24/19 20:00 99.6 114 21 105/69 (81) 97 12/24/19 16:00 98.7 123 19 113/67 (82) 99 12/24/19 13:46 Room Air 12/24/19 13:21 98.0 101 19 130/88 98 Room Air 12/24/19 13:08 98.1 107 16 97/63 99 Room Air I&O Intake and Output 12/24/19 12/25/19 19:00 07:00 Intake Total 275.000 ml 400 ml Balance 275.000 ml 400 ml Intake Oral 0 ml IV Total 275.000 ml Other 400 ml # Voids 3 Dressing: other Drains: other Cardiovascular: RSR Respiratory: clear Abdomen: soft, flat, non-tender, present bowel sounds Extremities: edema, tenderness, no cyanosis Laboratory Tests Test 12/25/19 06:15 Sodium Level 127 MMOL/L (136-145) L Potassium Level 4.2 MMOL/L (3.5-5.1) Chloride Level 95 MMOL/L (98-107) L Carbon Dioxide Level 25 MMOL/L (21-32) Anion Gap 7 mmol/L (5-15) Blood Urea Nitrogen 16 mg/dL (7-18) Creatinine 0.7 MG/DL (0.55-1.30) Estimat Glomerular Filtration Rate > 60 mL/min (>60) Glucose Level 336 MG/DL (74-106) #H Calcium Level 8.5 MG/DL (8.5-10.1) Magnesium Level 1.6 MG/DL (1.8-2.4) L Plan Problems: (1) Cellulitis of finger Assessment & Plan: bilateral hand cellulitis. left hand middle finger very swollen given location Hermilo Webber plastic surgery to eval and I&D abx elevate hand local care with hand washing will follow with recs thank you (2) Hyperglycemia (3) Cephalohematoma (4) Cellulitis (5) Finger injury (6) Sepsis (7) Foot infection (8) Diabetes mellitus out of control Kyree Gerard Dec 25, 2019 11:20
--- NOTE | 2019-12-25 11:46 | NUR ---
NURSE NOTES: blood sugar 424. patient is NPO since 0730 this morning for schedule of surgery on bilateral middle finger d/t infection. notified DR. Otoniel Castillo and received order. OK to give insulin per sliding scale.
--- NOTE | 2019-12-25 12:29 | NUR ---
CASE MANAGEMENT:INITIAL REVIEW 29 YR OLD FEMALE WALKED IN TO ED CC;SKIN RASH. ABSCESS. SI;HAND CELLULITIS. HYPERGLYCEMIA. 99.6 123 21 97/63 96% ON RA WBC 17.4 NA 133 BUN 27 BG 498 IS;NORCO PO ONCE VANCOMYCIN IV ONCE ADMITTED TO MED SURG MED SURG STATUS DCP;PATIENT IS HOMELESS
--- NOTE | 2019-12-25 12:31 | NUR ---
NURSE NOTES: administered RI 12units per sliding scale as MD ordered.
--- NOTE | 2019-12-25 13:28 | General Progress Note ---
Assessment/Plan Problem List: (1) Cellulitis of finger ICD Codes: L03.019 - Cellulitis of unspecified finger SNOMED: 51391201 (2) Diabetes mellitus out of control ICD Codes: E11.65 - Type 2 diabetes mellitus with hyperglycemia SNOMED: 77312988, 008370709 (3) Sepsis ICD Codes: A41.9 - Sepsis, unspecified organism SNOMED: 86416993 Assessment/Plan: abxs debridement today Discussed with RN Subjective Allergies: Coded Allergies: No Known Allergies (Unverified , 04/18/19) Subjective In NAD Objective Last 24 Hour Vital Signs Date Time Temp Pulse Resp B/P (MAP) Pulse Ox O2 Delivery O2 Flow Rate FiO2 12/25/19 12:00 98.5 115 20 114/80 (91) 95 12/25/19 09:00 Room Air 12/25/19 08:00 97.6 118 20 119/73 (88) 98 12/25/19 04:00 98.6 12/25/19 04:00 97.6 116 20 116/73 (87) 99 12/25/19 00:00 98.6 117 20 112/66 (81) 99 12/24/19 21:23 Room Air 12/24/19 20:00 99.6 114 21 105/69 (81) 97 12/24/19 16:00 98.7 123 19 113/67 (82) 99 12/24/19 13:46 Room Air Intake and Output 12/24/19 12/25/19 18:59 06:59 Intake Total 275.000 ml 400 ml Balance 275.000 ml 400 ml Intake Oral 0 ml IV Total 275.000 ml Other 400 ml # Voids 3 Laboratory Tests 12/25/19 06:15: Sodium Level 127L, Potassium Level 4.2, Chloride Level 95L, Carbon Dioxide Level 25, Anion Gap 7, Blood Urea Nitrogen 16, Creatinine 0.7, Estimat Glomerular Filtration Rate > 60, Glucose Level 336#H, Calcium Level 8.5, Magnesium Level 1.6L Height (Feet): 5 Height (Inches): 3.00 Weight (Pounds): 123 Cardiovascular: normal rate Respiratory/Chest: lungs clear Abdomen: soft Otoniel Castillo MD Dec 25, 2019 13:28
[2019-12-25] MEDS ORDERED: NeoSporin Gu Irrig 1ml Amp IRRIG ONE (13:33)
[2019-12-25] MEDS ORDERED: Bacitracin 50000 Units Vial ONE (13:33)
--- NOTE | 2019-12-25 13:49 | NUR ---
[employer] [employer] NOTE PT is identified as homeless. SW met w/pt and assess pt's needs. PT presents as A&O4x, disheveled and guarded. Pt reports she has been homeless since she was 15 y/o. Pt receives no income and denies substance abuse/mental illness. Pt declined to provide further information. Pt did not disclose her whereabouts. Pt minimized verbalization when engaged w/ this SW. SW provided a list of emergency shelters and the community resource packet. PT declined a placement assistance offered by [facility]. Pt will self-direct to her preferred location upon DC. PT did not share any concern/needs. SW to F/U as needed.
[2019-12-25] MEDS ORDERED: NS Irrig 1000ml ONE (14:00)
[2019-12-25] MEDS ORDERED: Bupivacaine w/Epi 0.5% 30ml Vial INJ ONE (14:00)
[2019-12-25] MEDS ORDERED: Sterile Water Irrig 1000ml IRRIG ONE (14:00)
[2019-12-25] MEDS ORDERED: LR 1000ml ONE (14:00)
[2019-12-25] MEDS ORDERED: Dexamethasone 4mg/ml vial ONE (14:16)
[2019-12-25] MEDS ORDERED: Lidocaine 1% MPF 10mg/ml 5ml ONE (14:16)
[2019-12-25] MEDS ORDERED: Propofol 200mg/20ml IV ONE (14:16)
[2019-12-25] MEDS ORDERED: Sodium Chloride 10ml vial INJ ONE (14:16)
[2019-12-25] MEDS ORDERED: fentaNYL 100 mcg/2 mL IV ONE (14:17)
[2019-12-25] MEDS ORDERED: LR 1000ml 1,000 ML IVLG SCH (14:44)
[2019-12-25] MEDS ORDERED: Ketorolac 30mg Inj IV PRN ×2 (14:45)
[2019-12-25] MEDS ORDERED: Hydromorphone 0.5mg/0.5ml inj IVP PRN (14:45)
[2019-12-25] MEDS ORDERED: HYDROcodone/Acetamin 7.5/325 tab ORAL PRN (14:45)
[2019-12-25] MEDS ORDERED: Midazolam 2mg/2ml Inj IVP PRN (14:45)
[2019-12-25] MEDS ORDERED: Metoclopramide 10mg/2ml Inj IVP PRN (14:45)
[2019-12-25] MEDS ORDERED: LORazepam Inj 2mg/ml 1ml IV PRN (14:45)
[2019-12-25] MEDS ORDERED: fentaNYL 100 mcg/2 mL IV PRN (14:45)
[2019-12-25] MEDS ORDERED: Atropine Sulfate 0.4mg/ml inj IVP PRN (14:45)
[2019-12-25] MEDS ORDERED: HYDROcodone/Acetamin 5/325 tab ORAL PRN ×2 (14:45→15:15)
[2019-12-25] MEDS ORDERED: DiphenhydrAMINE 50mg/ml Inj IVP PRN (14:45)
[2019-12-25] MEDS ORDERED: Labetalol 5mg/ml 20ml vial IV PRN (14:45)
[2019-12-25] MEDS ORDERED: oxyCODONE HCL/Acetaminophen 5/325mg ORAL PRN (14:45)
[2019-12-25] MEDS ORDERED: Meperidine 25mg/0.5ml Inj (FOR RIGORS ONLY) IV PRN (14:45)
[2019-12-25] MEDS ORDERED: Bacitracin Oint 15gm Tube TOPIC ONE (14:49)
--- NOTE | 2019-12-25 14:52 | Anethesia Preoperative Eval ---
Anesthesia Pre-op PMH/ROS General Date of Evaluation: Dec 25, 2019 Anesthesiologist: Cristopher ASA Score: ASA 3 - Emergency Mallampati Score Class I : Soft palate, uvula, fauces, pillars visible Class II: Soft palate, uvula, fauces visible Class III: Soft palate, base of uvula visible Class IV: Only hard plate visible Mallampati Classification: Class II Surgeon: Angel Diagnosis: Bilateral Cellulitis Middle Finger Surgical Procedure: Bilateral I&D Middle Finger Anesthesia History: none Social History: current smoker, alcohol use, drug use Family History: no anesthesia problems Allergies: Coded Allergies: No Known Allergies (Unverified , 04/18/19) Medications: see eMAR Patient NPO?: Yes NPO Date: Dec 25, 2019 NPO Time: 729 Past Medical History Endocrine: Reports: DM Hematology/Immune: Reports: anemia, other - Sepsis Musculoskeletal/Integumentary: Reports: other - Bilateral I&D Middle Finger Anesthesia Pre-op Phys. Exam Physician Exam Last Vital Signs Date Time Temp Pulse Resp B/P (MAP) Pulse Ox O2 Delivery O2 Flow Rate FiO2 12/25/19 12:00 98.5 115 20 114/80 (91) 95 12/25/19 09:00 Room Air Constitutional: NAD Neurologic: CN 2-12 intact Cardiovascular: RRR Respiratory: CTA Gastrointestinal: S/NT/ND Airway Exam Mallampati Score: Class II MO: full ROM: full Teeth: missing, intact Anesthesia Pre-op A/P Labs Chemistry Test 12/25/19 06:15 Sodium Level 127 MMOL/L (136-145) L Potassium Level 4.2 MMOL/L (3.5-5.1) Chloride Level 95 MMOL/L (98-107) L Carbon Dioxide Level 25 MMOL/L (21-32) Anion Gap 7 mmol/L (5-15) Blood Urea Nitrogen 16 mg/dL (7-18) Creatinine 0.7 MG/DL (0.55-1.30) Estimat Glomerular Filtration Rate > 60 mL/min (>60) Glucose Level 336 MG/DL (74-106) #H Calcium Level 8.5 MG/DL (8.5-10.1) Magnesium Level 1.6 MG/DL (1.8-2.4) L Risk Assessment & Plan Assessment: ASA 3E Plan: GA, SED Status Change Before Surgery: No Pre-Antibiotics Dru Grams Ancef IV Given Within 1 Hr of Incision: Yes Time Given: 14:32 Miles Nicholas MD Dec 25, 2019 14:52
--- NOTE | 2019-12-25 14:53 | Immediate Post-Op Evaluation ---
Immediate Post-Op Evalulation Immediate Post-Op Evalulation Procedure: Bilateral I&D Middle Finger Date of Evaluation: Dec 25, 2019 Time of Evaluation: 15:29 IV Fluids: 400 LR Blood Products: 0 Estimated Blood Loss: 10 Urinary Output: 0 Blood Pressure Systolic: 89 Blood Pressure Diastolic: 63 Pulse Rate: 91 Respiratory Rate: 16 O2 Sat by Pulse Oximetry: 100 Temperature (Fahrenheit): 98.1 Pain Score (1-10): 2 Nausea: No Vomiting: No Complications 0 Patient Status: awake, reacts, patent, none Hydration Status: adequate Dru Grams Ancef IV Given Within 1 Hr of Incision: Yes Time Given: 14:32 Miles Nicholas MD Dec 25, 2019 14:53
--- NOTE | 2019-12-25 15:05 | Brief Operative Note ---
Immediate Post Operative Note Operative Note Chief Complaint: Bilateral middle finger pain and swelling Pre-op Diagnosis: bilateral middle finger abscesses Procedure: Bilateral hand exploration, incision and drainage of middle finger abscesses, and wound debridements with washout Post-op Diagnosis: same as pre-op Findings: other - deep abscesses around tendon sheaths, tracking up proximally from finger johnny. Likely osteomyelitis. Surgeon: David Ortiz MD Petroleum Inspector Supervisor: None Additional Surgeons: None Anesthesiologist: Cristopher Anesthesia: general Specimen: yes - cultures of abscess fluid, for aerobic and anaerobic cultures Complications: none Condition: stable Fluids: see anesthesia record Estimated Blood Loss: minimal Drains: bev - bilateral /8 in bev drain placed to drain both middle fingers Packing: No Implant(s) used?: No David Ortiz MD Dec 25, 2019 15:05
[2019-12-25] MEDS ORDERED: DiphenhydrAMINE 25mg Tab ORAL PRN (15:15)
[2019-12-25] MEDS ORDERED: Morphine Sulfate 2mg/ml Inj(IV/IM USE ONLY) IVP PRN (15:15)
[2019-12-25] MEDS ORDERED: Zolpidem 5mg tab ORAL PRN (15:15)
--- NOTE | 2019-12-25 16:30 | NUR ---
NURSE NOTES: Patient came back to unit after surgery. sleeping. no respiratory distress noted on room air. LR running on LFA. dressing on both middle fingers. dressing intact. bed in the lowest position and locked. call light within reach. alarm on. will continue to provide plan of care.
[2019-12-25] MEDS: LR 1000ml 1,000 ML IV SCH (18:09)
--- NOTE | 2019-12-25 19:45 | NUR ---
NURSE NOTES: Received patient in bed. Awake, A/O x4. Patient has pain 10/10, will medicate as ordered. On room air. IV in the Left forearm noted, site intact with IVF infusing well. Surgical site on bilateral hands noted. Bed lowe and locked. Call light within reach.
--- NOTE | 2019-12-25 19:45 | NUR ---
HAND-OFF: Report given to Carrillo Henriquez RN.
[2019-12-25] MEDS: Docusate 100mg cap ORAL SCH (20:02)
--- NOTE | 2019-12-25 20:15 | Consultation ---
DATE OF CONSULTATION: 12/25/2019 INFECTIOUS DISEASE CONSULTATION CONSULTING PHYSICIAN: Sarbjit Castillo M.D. PRIMARY ATTENDING PHYSICIAN: Otoniel Castillo M.D. REASON FOR CONSULTATION: Cellulitis and abscess of hands. HISTORY OF PRESENT ILLNESS: This is a 29-year-old white female admitted yesterday complaining of pain, swelling of left hand. Patient had also hyperglycemia with blood sugar more than 500. She has history of recent admission with paronychia, with drainage and antibiotic. She had difficulty with flexion and extension of both middle finger. She has drainage from left middle finger. She is diabetic and homeless. She chews on nails and seems to be noncompliant with medication. PAST MEDICAL HISTORY: Significant for diabetes mellitus, paronychia. ALLERGIES: No known drug allergies. MEDICATIONS: Vancomycin, morphine, Vona, Zosyn. SOCIAL HISTORY: Homelessness, has history of methamphetamine abuse on the previous admission. No other history obtainable from the patient. The patient is noncompliant. PHYSICAL EXAMINATION: VITAL SIGNS: Temperature 98.5, pulse 115, blood pressure 114/80. GENERAL APPEARANCE: No acute distress. Seems to have normal weight. HEENT: [place] conjunctivae. HEART: Normal rate. LUNGS: Clear. ABDOMEN: Soft, nontender. EXTREMITIES: Swelling of both middle fingers associated with erythema. LABORATORY AND DIAGNOSTIC DATA: WBC 17.4, hemoglobin 12.4, hematocrit 38, platelets 501,000. Sodium 127, potassium 4.2, chloride 95, bicarbonate 25, BUN 16, creatinine 0.7, glucose is 336. IMPRESSION: Finger cellulitis in both middle fingers, maybe associated with abscess. The patient was seen by surgeon and is going to operate tomorrow. She has diabetes mellitus with hyperglycemia, hyponatremia, decreased magnesium, amphetamine abuse, homelessness. RECOMMENDATION: We will continue vancomycin and Zosyn. We will follow up the surgical cultures. At the end of my exam, I thank Dr. Otoniel Castillo for involving me in the care of this patient. Sarbjit Castillo M.D. DR: STEPHANIE JOB#: [id number] CC:
[2019-12-26] VITALS: BP 98/63
[2019-12-26 04:00] VITALS: BP 110/69
[2019-12-26] MEDS: Morphine Sulfate 4mg/ml Inj (IV USE ONLY) IVP PRN ×5 (04:18→21:00)
[2019-12-26] MEDS: LR 1000ml 1,000 ML IV SCH ×2 (04:19→14:00)
[2019-12-26] MEDS: Piperacillin/Tazobactam 3.375 GM in NS 110 ML IVPB SCH (05:55)
[2019-12-26] MEDS: NovoLOG Insulin Flexpen SUBQ SCH ×4 (05:55→20:36)
[2019-12-26] MEDS: Vancomycin 750mg/D5W 275ml IVPB SCH ×6 (07:08→14:19)
--- NOTE | 2019-12-26 07:10 | NUR ---
HAND-OFF: Report given to Jason Navarro RN.
--- NOTE | 2019-12-26 07:11 | NUR ---
NURSE NOTES: Report received from Carrillo STANTON. Patient is awake and alert x 4. Patient denies chest pain and shortness of breath. Patient complains of pain in middle fingers bilaterally. Will administer pain medication per protocol. Patient noted to have dressings in both middle fingers from I&D on December. Dressings clean dry and in tact. Bed locked in lowest position. Call light in reach. Will continue to follow plan of care.
[2019-12-26 08:00] VITALS: BP 112/75
[2019-12-26] MEDS: Docusate 100mg cap ORAL SCH ×2 (08:19→16:58)
--- NOTE | 2019-12-26 10:03 | 48 Hour Post Anesthesia Eval ---
Post Anesthesia Evaluation Procedure: Bilateral I&D Middle Finger Date of Evaluation: Dec 26, 2019 Time of Evaluation: 10:01 Blood Pressure Systolic: 110 0: 69 Pulse Rate: 82 Respiratory Rate: 16 Temperature (Fahrenheit): 97.8 O2 Sat by Pulse Oximetry: 95 Airway: patent Nausea: No Vomiting: No Pain Intensity: 2 Hydration Status: adequate Cardiopulmonary Status: Stable Mental Status/LOC: patient returned to baseline Follow-up Care/Observations: 0 Post-Anesthesia Complications: 0 Follow-up care needed: N/A Miles Nicholas MD Dec 26, 2019 10:03
[2019-12-26 12:00] VITALS: BP 107/74
--- NOTE | 2019-12-26 12:54 | Infectious Diseases Prog Note ---
Assessment/Plan Assessment/Plan IMPRESSION: Finger cellulitis in both middle fingers Abscess with Staph aureus Suspected osteomyelitis Diabetes mellitus with hyperglycemia, h Hyponatremia, decreased magnesium, Amphetamine abuse, Homelessness. RECOMMENDATION: We will continue vancomycin Discontinue Zosyn. We will follow up the surgical cultures. Likely needs jail antibiotic Subjective ROS Limited/Unobtainable: Yes Allergies: Coded Allergies: No Known Allergies (Unverified , 04/18/19) Objective Vital Signs Last 24 Hour Vital Signs Date Time Temp Pulse Resp B/P (MAP) Pulse Ox O2 Delivery O2 Flow Rate FiO2 12/26/19 10:03 82 16 95 12/26/19 09:00 Room Air 12/26/19 08:00 97.7 96 21 112/75 (87) 98 12/26/19 04:00 97.8 82 18 110/69 (83) 95 12/26/19 00:00 97.8 88 18 98/63 (75) 94 12/25/19 21:00 Room Air 12/25/19 20:00 98.2 101 18 103/64 (77) 96 12/25/19 16:10 97.8 89 15 108/73 100 Nasal Cannula 3 12/25/19 16:00 94 14 106/75 100 Nasal Cannula 3 12/25/19 15:45 91 17 94/60 100 Nasal Cannula 3 12/25/19 15:30 90 16 95/56 100 Nasal Cannula 3 12/25/19 15:20 89 15 91/54 100 Simple Mask 6 12/25/19 15:15 93 14 86/50 100 Simple Mask 6 12/25/19 15:14 91 16 100 12/25/19 15:10 98.1 91 16 83/53 100 Simple Mask 6 Height (Feet): 5 Height (Inches): 3.00 Weight (Pounds): 123 General Appearance: no acute distress HEENT: mucous membranes moist Cardiovascular: normal rate Abdomen: soft, non tender Extremities: no edema Skin: other - bilateral hand dressings Neurologic/Psychiatric: other - sleeping Microbiology Date/Time Source Procedure Growth Status 12/24/19 10:25 Blood Blood Culture - Preliminary NO GROWTH AFTER 24 HOURS Resulted 12/24/19 10:15 Blood Blood Culture - Preliminary NO GROWTH AFTER 24 HOURS Resulted 12/24/19 10:25 Nasal Nares MRSA Culture - Final Staphylococcus Aureus - Mrsa Complete 12/25/19 14:51 Finger Right Middle Gram Stain - Final Resulted 12/25/19 14:51 Aerobic Culture - Preliminary Staphylococcus Aureus Resulted 12/25/19 14:51 Finger Right Middle Anaerobic Culture - Preliminary Resulted 12/25/19 14:45 Finger Left Middle Gram Stain - Final Resulted 12/25/19 14:45 Aerobic Culture - Preliminary Staphylococcus Aureus Resulted 12/25/19 14:45 Finger Left Middle Anaerobic Culture - Preliminary Resulted 12/24/19 10:25 Rectum VRE Culture - Final NO VANCOMYCIN RESISTANT ENTEROCOCCUS ... Complete 12/24/19 10:25 Rectum - Final NO CARBAPENEM-RESISTANT ENTEROBACTERI... Complete Laboratory Tests Test 12/25/19 20:50 Vancomycin Level Trough 6.7 ug/mL (5.0-12.0) Current Medications Medications (Trade) Dose Ordered Sig/Jazmyn Route PRN Reason Start Time Stop Time Status Last Admin Dose Admin Acetaminophen (Tylenol) 650 mg Q4H PRN ORAL FEVER 12/25/19 15:15 01/24/20 15:14 Acetaminophen/ Hydrocodone Bitart ([place] 5/325) 1 tab Q4H PRN ORAL Moderate Pain (Pain Scale 4-6) 12/25/19 15:15 01/01/20 15:14 Al Hydroxide/Mg Hydroxide (Mylanta) 15 ml Q6H PRN ORAL DYSPEPSIA 12/25/19 15:15 01/24/20 15:14 Dextrose (Dextrose 50%) 25 ml Q30M PRN IV Hypoglycemia 12/24/19 14:15 03/23/20 14:14 Dextrose (Dextrose 50%) 50 ml Q30M PRN IV Hypoglycemia 12/24/19 14:15 03/23/20 14:14 Diphenhydramine HCl (Benadryl) 25 mg Q8H PRN ORAL Itching/Pruritis 12/25/19 15:15 01/24/20 15:14 12/26/19 12:37 Docusate Sodium (Colace) 100 mg TWICE A DAY ORAL 12/25/19 20:00 01/24/20 19:59 12/26/19 08:19 Insulin Aspart (NovoLOG) BEFORE MEALS AND HS SUBQ 12/24/19 16:30 03/23/20 16:29 12/26/19 12:08 Lactated Ringer's 1,000 ml @ 100 mls/hr Q10H IV 12/25/19 18:00 01/24/20 17:59 12/26/19 04:19 Morphine Sulfate (Morphine Sulfate) 2 mg Q4H PRN IVP pain scale 4-6 12/25/19 15:15 01/01/20 15:14 12/25/19 18:54 Morphine Sulfate (Morphine Sulfate) 4 mg Q4H PRN IVP pain score 7-10 12/25/19 15:15 01/01/20 15:14 12/26/19 12:36 Ondansetron HCl (Zofran) 4 mg Q6H PRN IVP Nausea & Vomiting 12/25/19 15:15 01/24/20 15:14 Piperacillin Sod/ Tazobactam Sod 3.375 gm/Sodium Chloride 110 ml @ 27.5 mls/hr EVERY 8 HOURS IVPB 12/24/19 15:00 12/29/19 14:59 12/26/19 05:55 Vancomycin HCl (Vanco rx to dose) 1 ea DAILY PRN MISC Per rx protocol 12/24/19 13:45 01/23/20 13:44 Vancomycin HCl 750 mg/Dextrose 275 ml @ 183.333 mls/hr Q8H IVPB 12/25/19 23:00 12/30/19 22:59 12/26/19 07:08 Zolpidem Tartrate (Ambien) 5 mg DAILYPRN PRN ORAL Insomnia 12/25/19 15:15 01/01/20 15:14 Sarbjit Castillo MD Dec 26, 2019 12:54
--- NOTE | 2019-12-26 13:15 | General Progress Note ---
Assessment/Plan Problem List: (1) Cellulitis of finger ICD Codes: L03.019 - Cellulitis of unspecified finger SNOMED: 31472670 (2) Diabetes mellitus out of control ICD Codes: E11.65 - Type 2 diabetes mellitus with hyperglycemia SNOMED: 59913814, 673882790 (3) Sepsis ICD Codes: A41.9 - Sepsis, unspecified organism SNOMED: 67917081 Assessment/Plan: abxs Discussed with RN Subjective Allergies: Coded Allergies: No Known Allergies (Unverified , 04/18/19) Subjective In NAD Objective Last 24 Hour Vital Signs Date Time Temp Pulse Resp B/P (MAP) Pulse Ox O2 Delivery O2 Flow Rate FiO2 12/26/19 12:00 98.0 97 19 107/74 (85) 98 12/26/19 10:03 82 16 95 12/26/19 09:00 Room Air 12/26/19 08:00 97.7 96 21 112/75 (87) 98 12/26/19 04:00 97.8 82 18 110/69 (83) 95 12/26/19 00:00 97.8 88 18 98/63 (75) 94 12/25/19 21:00 Room Air 12/25/19 20:00 98.2 101 18 103/64 (77) 96 12/25/19 16:10 97.8 89 15 108/73 100 Nasal Cannula 3 12/25/19 16:00 94 14 106/75 100 Nasal Cannula 3 12/25/19 15:45 91 17 94/60 100 Nasal Cannula 3 12/25/19 15:30 90 16 95/56 100 Nasal Cannula 3 12/25/19 15:20 89 15 91/54 100 Simple Mask 6 12/25/19 15:15 93 14 86/50 100 Simple Mask 6 12/25/19 15:14 91 16 100 12/25/19 15:10 98.1 91 16 83/53 100 Simple Mask 6 Intake and Output 12/25/19 12/26/19 19:00 07:00 Intake Total 850 ml 1360 ml Balance 850 ml 1360 ml Intake Oral 600 ml 300 ml IV Total 250 ml 700 ml Other 360 ml # Voids 3 4 Laboratory Tests 12/25/19 20:50: Vancomycin Level Trough 6.7 Height (Feet): 5 Height (Inches): 3.00 Weight (Pounds): 123 Cardiovascular: normal rate Respiratory/Chest: lungs clear Otoniel Castillo MD Dec 26, 2019 13:15
--- NOTE | 2019-12-26 14:31 | Surgery Progress Note ---
Surgery Progress Note Subjective Additional Comments s/p I&D by plastics disruptive Objective Last 24 Hour Vital Signs Date Time Temp Pulse Resp B/P (MAP) Pulse Ox O2 Delivery O2 Flow Rate FiO2 12/26/19 12:00 98.0 97 19 107/74 (85) 98 12/26/19 10:03 82 16 95 12/26/19 09:00 Room Air 12/26/19 08:00 97.7 96 21 112/75 (87) 98 12/26/19 04:00 97.8 82 18 110/69 (83) 95 12/26/19 00:00 97.8 88 18 98/63 (75) 94 12/25/19 21:00 Room Air 12/25/19 20:00 98.2 101 18 103/64 (77) 96 12/25/19 16:10 97.8 89 15 108/73 100 Nasal Cannula 3 12/25/19 16:00 94 14 106/75 100 Nasal Cannula 3 12/25/19 15:45 91 17 94/60 100 Nasal Cannula 3 12/25/19 15:30 90 16 95/56 100 Nasal Cannula 3 12/25/19 15:20 89 15 91/54 100 Simple Mask 6 12/25/19 15:15 93 14 86/50 100 Simple Mask 6 12/25/19 15:14 91 16 100 12/25/19 15:10 98.1 91 16 83/53 100 Simple Mask 6 I&O Intake and Output 12/25/19 12/26/19 19:00 07:00 Intake Total 850 ml 1360 ml Balance 850 ml 1360 ml Intake Oral 600 ml 300 ml IV Total 250 ml 700 ml Other 360 ml # Voids 3 4 Dressing: other Wound: other Drains: other Cardiovascular: RSR Respiratory: decreased breath sounds Abdomen: soft, non-tender, present bowel sounds Extremities: edema, tenderness, no cyanosis Laboratory Tests Test 12/25/19 20:50 Vancomycin Level Trough 6.7 ug/mL (5.0-12.0) Plan Problems: (1) Cellulitis of finger Assessment & Plan: bilateral hand cellulitis. left hand middle finger very swollen given location Hermilo Webber plastic surgery to eval and I&D abx elevate hand local care with hand washing will follow with recs thank you s/p I&D wants more pain meds dressings okay diet as tolerated (2) Hyperglycemia (3) Cephalohematoma (4) Cellulitis (5) Finger injury (6) Sepsis (7) Foot infection (8) Diabetes mellitus out of control Kyree Gerard Dec 26, 2019 14:31
[2019-12-26 16:00] VITALS: BP 103/63
--- NOTE | 2019-12-26 16:33 | NUR ---
CASE MANAGEMENT:REVIEW SI;S/P BILAT MIDDLE FINGER EXPLORATION I&D OF ABSCESS TODAY BILATERAL MIDDLE FINGER CELLULITIS. SEPSIS. DM 98.2 101 21 98.63 94% ON RA IS;VANCOMYCIN IV Q8 HRS MORPHINE IV Q4 HRS PRN NORCO PO Q4 HRS PRN MED SURG STATUS DCP;PATIENT IS HOMELESS
--- NOTE | 2019-12-26 16:46 | NUR ---
NURSE NOTES: Patient found to have a blood glucose level of greater than 600. Checked twice. Informed Charge nurse Alonso. Call Maxim Castillo. Left message. Awaiting call back. 12 units of insulin administered. Will await call back and recheck blood glucose level. Patient currently asymptomatic.
--- NOTE | 2019-12-26 17:26 | NUR ---
NURSE NOTES: Patient refusing to eat dinner since Jason STANTON removed two bell and ice cream. Jason STANTON informed patient that until blood glucose levels return to normal limits, the patient PO intake needs to be monitored. Jason STANTON educated the patient on reason why. Jason STANTON encouraged Patient drink water instead.
--- NOTE | 2019-12-26 17:30 | NUR ---
NURSE NOTES: Rechecked blood glucose level. Patient found to have a blood glucose level of 438. Jason STANTON attempted to contact Maxim Castillo again. No answer. Message left. Patient currently asymptomatic. Will continue to monitor.
--- NOTE | 2019-12-26 19:37 | NUR ---
HAND-OFF: Report given to Carrillo STANTON. Endorsed that patient had a critically high blood glucose level. Endorsed new orders for accu check and insulin administration.
--- NOTE | 2019-12-26 19:38 | NUR ---
NURSE NOTES: Received patient in bed. Awake, A/O x4. On room air, respirations unlabored. Patient has 10/10 pain, will medicate as ordered. Dressing on bilateral hands dry and intact. IV in the Left forearm intact, running fluids well. Bed low and locked, bed rails up x2, call light within reach.
[2019-12-26 20:00] VITALS: BP 96/56
[2019-12-26] MEDS: Vancomycin 1 GM in NS 275 ML IVPB SCH (23:42)
[2019-12-27] VITALS: BP 121/66
[2019-12-27] MEDS: LR 1000ml 1,000 ML IV SCH ×3 (00:44→20:13)
[2019-12-27] MEDS: NovoLOG Insulin Flexpen SUBQ SCH ×6 (00:50→21:39)
[2019-12-27] MEDS: Morphine Sulfate 4mg/ml Inj (IV USE ONLY) IVP PRN ×6 (00:59→21:32)
[2019-12-27 04:00] VITALS: BP 106/78
[2019-12-27] MEDS: Vancomycin 1 GM in NS 275 ML IVPB SCH ×3 (06:30→22:54)
--- NOTE | 2019-12-27 07:15 | NUR ---
HAND-OFF: Report given to Jacqui STANTON.
[2019-12-27 08:00] VITALS: BP 115/57
[2019-12-27 08:39] LABS: BASOPHILS % (AUTO) 1.4 % (0.0-2.0); EOSINOPHILS % (AUTO) 5.5 % (0.0-3.0); HEMATOCRIT 32.1 % (37.0-47.0); HEMOGLOBIN 10.5 G/DL (12.0-16.0); LYMPHOCYTES % (AUTO) 38.7 % (20.0-45.0); MEAN CORPUSCULAR VOLUME 83 FL (80-99); MONOCYTES % (AUTO) 6.8 % (1.0-10.0); NEUTROPHILS % (AUTO) 47.6 % (45.0-75.0); PLATELET COUNT 379 K/UL (150-450); RED BLOOD COUNT 3.89 M/UL (4.20-5.40); RED CELL DISTRIBUTION WIDTH 12.2 % (11.6-14.8)
[2019-12-27] MEDS: Docusate 100mg cap ORAL SCH ×2 (09:12→17:26)
[2019-12-27 09:16] LABS: ANION GAP 7 mmol/L (5-15); BLOOD UREA NITROGEN 14 mg/dL (7-18); CALCIUM 8.4 MG/DL (8.5-10.1); CARBON DIOXIDE 26 MMOL/L (21-32); CHLORIDE 103 MMOL/L (98-107); CREATININE 0.7 MG/DL (0.55-1.30); POTASSIUM 3.9 MMOL/L (3.5-5.1); SODIUM 136 MMOL/L (136-145)
--- NOTE | 2019-12-27 11:48 | General Progress Note ---
Assessment/Plan Problem List: (1) Cellulitis of finger ICD Codes: L03.019 - Cellulitis of unspecified finger SNOMED: 46673232 (2) Diabetes mellitus out of control ICD Codes: E11.65 - Type 2 diabetes mellitus with hyperglycemia SNOMED: 61767279, 182727700 (3) Sepsis ICD Codes: A41.9 - Sepsis, unspecified organism SNOMED: 43706055 Assessment/Plan: abxs wound care SSI discussed with RN Subjective Allergies: Coded Allergies: No Known Allergies (Unverified , 04/18/19) Subjective In NAD Objective Last 24 Hour Vital Signs Date Time Temp Pulse Resp B/P (MAP) Pulse Ox O2 Delivery O2 Flow Rate FiO2 12/27/19 09:00 Room Air 12/27/19 08:00 97.1 100 16 115/57 (76) 100 12/27/19 04:00 97.6 106 16 106/78 (87) 100 12/27/19 00:00 97.6 75 22 121/66 (84) 97 12/26/19 21:00 Room Air 12/26/19 20:00 97.9 95 16 96/56 (69) 95 12/26/19 16:00 97.9 94 20 103/63 (76) 94 12/26/19 12:00 98.0 97 19 107/74 (85) 98 Intake and Output 12/26/19 12/27/19 19:00 07:00 Intake Total 2850.000 ml 1300 ml Balance 2850.000 ml 1300 ml Intake Oral 1300 ml IV Total 1550.000 ml 900 ml Other 400 ml # Voids 5 3 Laboratory Tests 12/26/19 22:37: Vancomycin Level Trough 8.3 12/27/19 08:00: White Blood Count 12.0H, Red Blood Count 3.89L, Hemoglobin 10.5L, Hematocrit 32.1L, Mean Corpuscular Volume 83, Mean Corpuscular Hemoglobin 27.0, Mean Corpuscular Hemoglobin Concent 32.7, Red Cell Distribution Width 12.2, Platelet Count 379, Mean Platelet Volume 6.1L, Neutrophils (%) (Auto) 47.6, Lymphocytes ( %) (Auto) 38.7, Monocytes (%) (Auto) 6.8, Eosinophils (%) (Auto) 5.5H, Basophils (%) (Auto) 1.4, Sodium Level 136, Potassium Level 3.9, Chloride Level 103, Carbon Dioxide Level 26, Anion Gap 7, Blood Urea Nitrogen 14, Creatinine 0.7, Estimat Glomerular Filtration Rate > 60, Glucose Level 277H, Calcium Level 8.4L Height (Feet): 5 Height (Inches): 3.00 Weight (Pounds): 123 Cardiovascular: normal rate Respiratory/Chest: lungs clear Edema: no edema noted Generalized Otoniel Castillo MD Dec 27, 2019 11:48
[2019-12-27 12:00] VITALS: BP 112/78
--- NOTE | 2019-12-27 12:31 | Infectious Diseases Prog Note ---
Assessment/Plan Assessment/Plan IMPRESSION: Finger cellulitis in both middle fingers Abscess with Staph aureus, MRSA Suspected osteomyelitis Diabetes mellitus with hyperglycemia, h Hyponatremia, decreased magnesium, Amphetamine abuse, Homelessness. RECOMMENDATION: We will continue vancomycin in hospital PO Bactrim after discharge for 38 days Subjective ROS Limited/Unobtainable: Yes Constitutional: Reports: no symptoms Respiratory: Reports: no symptoms Gastrointestinal/Abdominal: Reports: no symptoms Genitourinary: Reports: no symptoms Musculoskeletal: Reports: pain, other - in operation sites Allergies: Coded Allergies: No Known Allergies (Unverified , 04/18/19) Objective Vital Signs Last 24 Hour Vital Signs Date Time Temp Pulse Resp B/P (MAP) Pulse Ox O2 Delivery O2 Flow Rate FiO2 12/27/19 12:00 97.6 96 19 112/78 (89) 100 12/27/19 09:00 Room Air 12/27/19 08:00 97.1 100 16 115/57 (76) 100 12/27/19 04:00 97.6 106 16 106/78 (87) 100 12/27/19 00:00 97.6 75 22 121/66 (84) 97 12/26/19 21:00 Room Air 12/26/19 20:00 97.9 95 16 96/56 (69) 95 12/26/19 16:00 97.9 94 20 103/63 (76) 94 Height (Feet): 5 Height (Inches): 3.00 Weight (Pounds): 123 General Appearance: no acute distress HEENT: mucous membranes moist Respiratory/Chest: lungs clear Cardiovascular: normal rate Abdomen: soft, non tender Extremities: no edema Skin: other - hands dressing Neurologic/Psychiatric: alert, responsive Microbiology Date/Time Source Procedure Growth Status 12/25/19 14:51 Finger Right Middle Gram Stain - Final Resulted 12/25/19 14:51 Aerobic Culture - Preliminary Staphylococcus Aureus Resulted 12/25/19 14:51 Finger Right Middle Anaerobic Culture - Preliminary Resulted 12/25/19 14:45 Finger Left Middle Gram Stain - Final Resulted 12/25/19 14:45 Aerobic Culture - Preliminary Staphylococcus Aureus - Mrsa Resulted 12/25/19 14:45 Finger Left Middle Anaerobic Culture - Preliminary Resulted Laboratory Tests Test 12/26/19 22:37 12/27/19 08:00 Vancomycin Level Trough 8.3 ug/mL (5.0-12.0) White Blood Count 12.0 K/UL (4.8-10.8) H Red Blood Count 3.89 M/UL (4.20-5.40) L Hemoglobin 10.5 G/DL (12.0-16.0) L Hematocrit 32.1 % (37.0-47.0) L Mean Corpuscular Volume 83 FL (80-99) Mean Corpuscular Hemoglobin 27.0 PG (27.0-31.0) Mean Corpuscular Hemoglobin Concent 32.7 G/DL (32.0-36.0) Red Cell Distribution Width 12.2 % (11.6-14.8) Platelet Count 379 K/UL (150-450) Mean Platelet Volume 6.1 FL (6.5-10.1) L Neutrophils (%) (Auto) 47.6 % (45.0-75.0) Lymphocytes (%) (Auto) 38.7 % (20.0-45.0) Monocytes (%) (Auto) 6.8 % (1.0-10.0) Eosinophils (%) (Auto) 5.5 % (0.0-3.0) H Basophils (%) (Auto) 1.4 % (0.0-2.0) Sodium Level 136 MMOL/L (136-145) Potassium Level 3.9 MMOL/L (3.5-5.1) Chloride Level 103 MMOL/L (98-107) Carbon Dioxide Level 26 MMOL/L (21-32) Anion Gap 7 mmol/L (5-15) Blood Urea Nitrogen 14 mg/dL (7-18) Creatinine 0.7 MG/DL (0.55-1.30) Estimat Glomerular Filtration Rate > 60 mL/min (>60) Glucose Level 277 MG/DL (74-106) H Calcium Level 8.4 MG/DL (8.5-10.1) L Current Medications Medications (Trade) Dose Ordered Sig/Jazmyn Route PRN Reason Start Time Stop Time Status Last Admin Dose Admin Acetaminophen (Tylenol) 650 mg Q4H PRN ORAL FEVER 12/25/19 15:15 01/24/20 15:14 Acetaminophen/ Hydrocodone Bitart ([place] 5/325) 1 tab Q4H PRN ORAL Moderate Pain (Pain Scale 4-6) 12/25/19 15:15 01/01/20 15:14 Al Hydroxide/Mg Hydroxide (Mylanta) 15 ml Q6H PRN ORAL DYSPEPSIA 12/25/19 15:15 01/24/20 15:14 Dextrose (Dextrose 50%) 25 ml Q30M PRN IV Hypoglycemia 12/24/19 14:15 03/23/20 14:14 Dextrose (Dextrose 50%) 50 ml Q30M PRN IV Hypoglycemia 12/24/19 14:15 03/23/20 14:14 Diphenhydramine HCl (Benadryl) 25 mg Q8H PRN ORAL Itching/Pruritis 12/25/19 15:15 01/24/20 15:14 12/26/19 12:37 Docusate Sodium (Colace) 100 mg TWICE A DAY ORAL 12/25/19 20:00 01/24/20 19:59 12/27/19 09:12 Insulin Aspart (NovoLOG) EVERY 4 HOURS SUBQ 12/26/19 21:00 03/23/20 16:29 12/27/19 09:19 Lactated Ringer's 1,000 ml @ 100 mls/hr Q10H IV 12/25/19 18:00 01/24/20 17:59 12/27/19 11:34 Morphine Sulfate (Morphine Sulfate) 2 mg Q4H PRN IVP pain scale 4-6 12/25/19 15:15 01/01/20 15:14 12/25/19 18:54 Morphine Sulfate (Morphine Sulfate) 4 mg Q4H PRN IVP pain score 7-10 12/25/19 15:15 01/01/20 15:14 12/27/19 09:13 Ondansetron HCl (Zofran) 4 mg Q6H PRN IVP Nausea & Vomiting 12/25/19 15:15 01/24/20 15:14 Vancomycin HCl (Vanco rx to dose) 1 ea DAILY PRN MISC Per rx protocol 12/24/19 13:45 01/23/20 13:44 Vancomycin HCl 1 gm/Sodium Chloride 275 ml @ 184 mls/hr Q8H IVPB 12/26/19 23:00 12/31/19 22:59 12/27/19 06:30 Zolpidem Tartrate (Ambien) 5 mg DAILYPRN PRN ORAL Insomnia 12/25/19 15:15 01/01/20 15:14 Sarbjit Castillo MD Dec 27, 2019 12:31
[2019-12-27 16:00] VITALS: BP 143/78
--- NOTE | 2019-12-27 16:28 | NUR ---
CASE MANAGEMENT:REVIEW SI;POD #1 BILAT MIDDLE FINGER EXPLORATION I&D OF ABSCESS TODAY BILATERAL MIDDLE FINGER CELLULITIS. SEPSIS. DM. 97.1 106 22 106/78 97% ON RA WBC 12.0 BG 277 IS;VANCOMYCIN IV Q8 HRS MORPHINE IV Q4 HRS PRN NORCO PO Q4 HRS PRN MED SURG STATUS DCP;PATIENT IS HOMELESS
--- NOTE | 2019-12-27 19:35 | NUR ---
NURSE NOTES: Received patient in bed. Awake, A/O x4. On room air. Surgical site dressing on bilateral hands dry and intact. IV site in the Left wrist noted, site intact and infusing IVf well. Bed low and locked, side rails up x2, call light within reach.
--- NOTE | 2019-12-27 19:37 | NUR ---
HAND-OFF: Report given to Carrillo STANTON.
--- NOTE | 2019-12-27 19:38 | Surgery Progress Note ---
Surgery Progress Note Subjective Additional Comments agitated would not allow for dressings to be removed today wants more pain meds Objective Last 24 Hour Vital Signs Date Time Temp Pulse Resp B/P (MAP) Pulse Ox O2 Delivery O2 Flow Rate FiO2 12/27/19 16:00 97.8 80 19 143/78 (99) 100 12/27/19 12:00 97.6 96 19 112/78 (89) 100 12/27/19 09:00 Room Air 12/27/19 08:00 97.1 100 16 115/57 (76) 100 12/27/19 04:00 97.6 106 16 106/78 (87) 100 12/27/19 00:00 97.6 75 22 121/66 (84) 97 12/26/19 21:00 Room Air 12/26/19 20:00 97.9 95 16 96/56 (69) 95 I&O Intake and Output 12/26/19 12/27/19 19:00 07:00 Intake Total 2850.000 ml 1300 ml Balance 2850.000 ml 1300 ml Intake Oral 1300 ml IV Total 1550.000 ml 900 ml Other 400 ml # Voids 5 3 Dressing: dry Wound: other Cardiovascular: RSR Respiratory: clear Abdomen: soft, flat, non-tender, present bowel sounds Extremities: edema, tenderness, other Laboratory Tests Test 12/26/19 22:37 12/27/19 08:00 Vancomycin Level Trough 8.3 ug/mL (5.0-12.0) White Blood Count 12.0 K/UL (4.8-10.8) H Red Blood Count 3.89 M/UL (4.20-5.40) L Hemoglobin 10.5 G/DL (12.0-16.0) L Hematocrit 32.1 % (37.0-47.0) L Mean Corpuscular Volume 83 FL (80-99) Mean Corpuscular Hemoglobin 27.0 PG (27.0-31.0) Mean Corpuscular Hemoglobin Concent 32.7 G/DL (32.0-36.0) Red Cell Distribution Width 12.2 % (11.6-14.8) Platelet Count 379 K/UL (150-450) Mean Platelet Volume 6.1 FL (6.5-10.1) L Neutrophils (%) (Auto) 47.6 % (45.0-75.0) Lymphocytes (%) (Auto) 38.7 % (20.0-45.0) Monocytes (%) (Auto) 6.8 % (1.0-10.0) Eosinophils (%) (Auto) 5.5 % (0.0-3.0) H Basophils (%) (Auto) 1.4 % (0.0-2.0) Sodium Level 136 MMOL/L (136-145) Potassium Level 3.9 MMOL/L (3.5-5.1) Chloride Level 103 MMOL/L (98-107) Carbon Dioxide Level 26 MMOL/L (21-32) Anion Gap 7 mmol/L (5-15) Blood Urea Nitrogen 14 mg/dL (7-18) Creatinine 0.7 MG/DL (0.55-1.30) Estimat Glomerular Filtration Rate > 60 mL/min (>60) Glucose Level 277 MG/DL (74-106) H Calcium Level 8.4 MG/DL (8.5-10.1) L Plan Problems: (1) Cellulitis of finger Assessment & Plan: bilateral hand cellulitis. left hand middle finger very swollen given location Drl Akbar plastic surgery to eval and I&D abx elevate hand local care with hand washing will follow with recs thank you s/p I&D wants more pain meds dressings okay diet as tolerated possible osteo abx as per ID will attempt to change dressings tomorrow (2) Hyperglycemia (3) Cephalohematoma (4) Cellulitis (5) Finger injury (6) Sepsis (7) Foot infection (8) Diabetes mellitus out of control Kyree Gerard Dec 27, 2019 19:38
[2019-12-27 20:00] VITALS: BP 102/69
[2019-12-28] VITALS (7 sets, daily range): BP systolic 106–138; BP diastolic 59–82
[2019-12-28] MEDS: Morphine Sulfate 4mg/ml Inj (IV USE ONLY) IVP PRN ×6 (01:39→21:10)
[2019-12-28] MEDS: NovoLOG Insulin Flexpen SUBQ SCH ×6 (01:42→20:58)
[2019-12-28] MEDS: LR 1000ml 1,000 ML IV SCH ×2 (05:50→17:13)
[2019-12-28] MEDS: Vancomycin 1 GM in NS 275 ML IVPB SCH ×3 (06:30→22:45)
--- NOTE | 2019-12-28 07:15 | NUR ---
HAND-OFF: Report given to Jacqui STANTON.
--- NOTE | 2019-12-28 07:39 | NUR ---
NURSE NOTES: Patient seen on rounds, AxOx3, no c/o pain, not in distress. Patient is ambulatory. Reports 1 episode of loose BM this AM. PIV on left wrist patent and infusing IVF as ordered. Patient refused dressing change management administrator left and right middle finger yesterday. No signs of bleeding or discharge from site. Bed low and locked, siderails up x 2, call light placed within reach, instructed to call nurse for assistance. Will continue to monitor.
[2019-12-28] MEDS: Docusate 100mg cap ORAL SCH ×2 (09:00→17:14)
[2019-12-28] MEDS ORDERED: NS 275ml ONE (09:32)
--- NOTE | 2019-12-28 13:16 | General Progress Note ---
Assessment/Plan Problem List: (1) Cellulitis of finger ICD Codes: L03.019 - Cellulitis of unspecified finger SNOMED: 30743920 (2) Diabetes mellitus out of control ICD Codes: E11.65 - Type 2 diabetes mellitus with hyperglycemia SNOMED: 55573827, 194291385 (3) Sepsis ICD Codes: A41.9 - Sepsis, unspecified organism SNOMED: 77198118 Assessment/Plan: abxs wound care SSI Subjective Allergies: Coded Allergies: No Known Allergies (Unverified , 04/18/19) Subjective In NAD Objective Last 24 Hour Vital Signs Date Time Temp Pulse Resp B/P (MAP) Pulse Ox O2 Delivery O2 Flow Rate FiO2 12/28/19 12:00 98.4 87 20 130/79 (96) 99 12/28/19 09:00 Room Air 12/28/19 08:00 97.7 84 20 138/80 (99) 100 12/28/19 04:00 97.6 100 18 115/68 (84) 96 12/28/19 00:00 97.9 107 18 110/70 (83) 96 12/27/19 21:00 Room Air 12/27/19 20:00 98.1 111 18 102/69 (80) 97 12/27/19 16:00 97.8 80 19 143/78 (99) 100 Intake and Output 12/27/19 12/28/19 19:00 07:00 Intake Total 2835 ml 1375 ml Balance 2835 ml 1375 ml Intake Oral 1360 ml IV Total 1475 ml 1375 ml # Voids 5 6 # Bowel Movements 1 6 Height (Feet): 5 Height (Inches): 3.00 Weight (Pounds): 123 Cardiovascular: normal rate Respiratory/Chest: lungs clear Otoniel Castillo MD Dec 28, 2019 13:16
--- NOTE | 2019-12-28 15:07 | Surgery Progress Note ---
Surgery Progress Note Subjective Additional Comments improved pending labs she was in better spirits today let me change dressings wounds okay bev in place cellulitis much improved Objective Last 24 Hour Vital Signs Date Time Temp Pulse Resp B/P (MAP) Pulse Ox O2 Delivery O2 Flow Rate FiO2 12/28/19 12:00 98.4 87 20 130/79 (96) 99 12/28/19 09:00 Room Air 12/28/19 08:00 97.7 84 20 138/80 (99) 100 12/28/19 04:00 97.6 100 18 115/68 (84) 96 12/28/19 00:00 97.9 107 18 110/70 (83) 96 12/27/19 21:00 Room Air 12/27/19 20:00 98.1 111 18 102/69 (80) 97 12/27/19 16:00 97.8 80 19 143/78 (99) 100 I&O Intake and Output 12/27/19 12/28/19 19:00 07:00 Intake Total 2835 ml 1375 ml Balance 2835 ml 1375 ml Intake Oral 1360 ml IV Total 1475 ml 1375 ml # Voids 5 6 # Bowel Movements 1 6 Dressing: saturated Wound: clean Cardiovascular: RSR Respiratory: clear Abdomen: soft, non-tender, present bowel sounds Extremities: edema, tenderness, no cyanosis, pulses, other Laboratory Tests Test 12/28/19 14:00 Vancomycin Level Trough Pending Plan Problems: (1) Cellulitis of finger Assessment & Plan: bilateral hand cellulitis. left hand middle finger very swollen given location Dryadiel Webber plastic surgery to eval and I&D abx elevate hand local care with hand washing will follow with recs thank you s/p I&D wants more pain meds dressings okay diet as tolerated possible osteo abx as per ID will attempt to change dressings tomorrow dressings changed today and she let me wounds look good cellulitis much improved bev in place dressings changed cont abx as per id d/c planning (2) Hyperglycemia (3) Cephalohematoma (4) Cellulitis (5) Finger injury (6) Sepsis (7) Foot infection (8) Diabetes mellitus out of control Kyree Gerard Dec 28, 2019 15:07
--- NOTE | 2019-12-28 19:32 | NUR ---
HAND-OFF: Report given to ROMY Silva.
[2019-12-29] MEDS ORDERED: Bactrim-DS 1 tab ORAL SCH
[2019-12-29] MEDS ORDERED: Cephalexin 500mg cap ORAL SCH
[2019-12-29] MEDS: NovoLOG Insulin Flexpen SUBQ SCH ×4 (01:03→13:00)
[2019-12-29] MEDS: Morphine Sulfate 4mg/ml Inj (IV USE ONLY) IVP PRN ×4 (01:23→13:34)
[2019-12-29] MEDS: LR 1000ml 1,000 ML IV SCH ×2 (01:54→12:00)
--- NOTE | 2019-12-29 06:06 | NUR ---
NURSE NOTES: Patient awake, alert, oriented. Pain managed with Morphine 4mg prn med. Patient is ambulatory. Surgical wound dressings (hands) dry and intact. Vitals stable, afebrile. No nausea/vomiting. Re-educated on diabetic diet and blood sugar, patient says, "I'm homeless so this is the only I can eat a lot.", patient remains non-compliant. Bed low and locked, siderails up x 2, call light placed within reach, call light within reach. Will continue to monitor.
[2019-12-29] MEDS: Vancomycin 1 GM in NS 275 ML IVPB SCH (07:20)
--- NOTE | 2019-12-29 07:29 | NUR ---
HAND-OFF: Report given to AMANDA GARNER RN. ENDORSED ALL FALL PREVENTATIVE MEASURES FOR HIGH RISK FOR FALLS.
--- NOTE | 2019-12-29 08:00 | NUR ---
NURSE NOTES: received patient in bed, awake, no complaint of pain. Requesting food, contacted dietary. Bed locked at the lowest position possible, call light within easy reach, siderails up x3 per safety. Will continue to monitor pt and follow up with the POC.
[2019-12-29] MEDS: Docusate 100mg cap ORAL SCH (09:00)
[2019-12-29] MEDS ORDERED: BACTRIM-DS1 EA ORAL (12:26)
[2019-12-29] MEDS ORDERED: CEPHALEXIN500 MG ORAL (12:27)
--- NOTE | 2019-12-29 12:29 | General Progress Note ---
Assessment/Plan Problem List: (1) Cellulitis of finger ICD Codes: L03.019 - Cellulitis of unspecified finger SNOMED: 29944745 (2) Diabetes mellitus out of control ICD Codes: E11.65 - Type 2 diabetes mellitus with hyperglycemia SNOMED: 22014400, 493470660 (3) Sepsis ICD Codes: A41.9 - Sepsis, unspecified organism SNOMED: 57536532 Assessment/Plan: Po abxs can not be on Insulin at discharge since pt is homeless. needs to follow up with [facility] for her DM. Dc today Subjective Allergies: Coded Allergies: No Known Allergies (Unverified , 04/18/19) Subjective In NAD Objective Last 24 Hour Vital Signs Date Time Temp Pulse Resp B/P (MAP) Pulse Ox O2 Delivery O2 Flow Rate FiO2 12/29/19 09:56 97.7 12/28/19 23:41 97.7 105 20 110/59 (76) 94 12/28/19 22:04 Room Air 12/28/19 20:00 98.1 106 20 106/68 (81) 95 12/28/19 16:00 98.5 91 20 135/82 (99) 98 Intake and Output 12/28/19 12/29/19 19:00 07:00 Intake Total 1300 ml 835 ml Balance 1300 ml 835 ml Intake Oral 1200 ml 360 ml IV Total 100 ml 475 ml # Voids 2 Laboratory Tests 12/28/19 14:00: Vancomycin Level Trough 15.7H Height (Feet): 5 Height (Inches): 3.00 Weight (Pounds): 123 Cardiovascular: normal rate Respiratory/Chest: lungs clear Edema: no edema noted Generalized Otoniel Castillo MD Dec 29, 2019 12:29
--- NOTE | 2019-12-29 13:49 | NUR ---
NURSE NOTES: patient is being discharge, doesn't want to tell place she's going, pt signed belongings list and left with all her belongeings, pharmacist Neris could provide 3 days of atb, provided prescription sheet for atb and norco. Taken IV access off, taken ID band. In stable condition, refused VS taken, refused collection of MRSA nares. Going ambulatory, will take bus to preferred location, provided tap card, provided meal and sandwich plus apple cranberry and orange juice to go, given pain medication prior of discharge as per pt request.
--- NOTE | 2019-12-29 14:01 | NUR ---
NURSE NOTES: given all community resources regarding free clinic, intermediate and food, pt signed discharge packet receipt. Given reading material regarding medication ordered and provided 3days supply. In stable condition, no complaint of pain at the moment.
--- NOTE | 2019-12-29 14:05 | NUR ---
NURSE NOTES: patient left with all belongings and meds provided with pamphlet regarding those meds, along with discharge packet and community resoursec paper, ambulatory accompanied by loading unit operator seating Yaron.
--- NOTE | 2019-12-29 18:47 | Surgery Progress Note ---
Surgery Progress Note Subjective Additional Comments late entry as patient seen this AM discussed case with PCP plan for d/c today dressings discussed with patient drain discussed she states she will f/u with Dr. Webber for removal of bev will do dressings and keep site clean abx as per ID d/c plan Objective Last 24 Hour Vital Signs Date Time Temp Pulse Resp B/P (MAP) Pulse Ox O2 Delivery O2 Flow Rate FiO2 12/29/19 14:04 97.7 12/29/19 09:00 Room Air 12/28/19 23:41 97.7 105 20 110/59 (76) 94 12/28/19 22:04 Room Air 12/28/19 20:00 98.1 106 20 106/68 (81) 95 I&O Intake and Output 12/28/19 12/29/19 19:00 07:00 Intake Total 1300 ml 835 ml Balance 1300 ml 835 ml Intake Oral 1200 ml 360 ml IV Total 100 ml 475 ml # Voids 2 Dressing: dry Wound: clean Cardiovascular: RSR Respiratory: clear Abdomen: soft, non-tender, present bowel sounds Extremities: edema - much improved , tenderness - improved Plan Problems: (1) Cellulitis of finger Assessment & Plan: bilateral hand cellulitis. left hand middle finger very swollen given location Hermilo Webber plastic surgery to eval and I&D abx elevate hand local care with hand washing will follow with recs thank you s/p I&D wants more pain meds dressings okay diet as tolerated possible osteo abx as per ID will attempt to change dressings tomorrow dressings changed today and she let me wounds look good cellulitis much improved bev in place dressings changed cont abx as per id d/c planning (2) Hyperglycemia (3) Cephalohematoma (4) Cellulitis (5) Finger injury (6) Sepsis (7) Foot infection (8) Diabetes mellitus out of control Kyree Gerard Dec 29, 2019 18:47
--- NOTE | 2019-12-30 16:50 | Discharge Summary ---
Discharge Summary Discharge Summary _ DATE OF ADMISSION: 12/24/2019 DATE OF DISCHARGE: 12/29/2019 DISCHARGED BY: Dr. Otoniel Castillo REASON FOR ADMISSION: 29 years old female with past medical history of diabetes mellitus, amphetamine abuse, homeless, presented for evaluation of bilateral middle fingers pain and swelling. Vital signs revealed no fever, but patient was tachycardic. Laboratory work-up revealed significant leukocytosis WBC 17.4, stable hemoglobin ,hematocrit and platelet count. BUN 27, creatinine 1.0. Glucose 498. Potassium 4.3. Anion gap 14. In emergency room patient started on the IV fluids , empiric antibiotics . Patient , received insulin. Patient admitted for further management CONSULTANTS: hand plastic surgeon Dr. Ortiz ID specialist Dr. Sarbjit Castillo general surgery Dr. Gerard [facility] COURSE: Patient admitted to medical surgical floor and t started on empiric antibiotics as per ID specialist recommendation . Plastic surgeon consulted. Patient with evidence of bilateral middle fingers abscesses. Patient undergone bilateral hand exploration, incision and drainage of middle fingers abscesses and wounds debridement with washout. Patient tolerated procedure well. Bilateral [place] drains were placed during surgery. Postoperatively pain management was addressed. [place] output was closely monitored. Blood cultures were negative. Wound culture revealed MRSA and Strep group B . Patient was on IV vancomycin while in the hospital . Leukocytosis trending down, no fevers . ID specialist suspected osteomyelitis and recommended total treatment of 6 weeks with antibiotics. Antibiotics were changed to oral upon discharge to complete for additional 38 days with total of 6 weeks treatment. General surgeon followed for wound care. Patient was taught how to do dressing changes . Patient was instructed to keep site clean. Patient need to follow-up with Dr. Ortiz as outpatient for removal of [place] drains . Patient was encouraged to complete antibiotic treatment as outlined in medication reconciliation list. Blood sugar was managed with sliding scale of insulin. Renal parameters and electrolytes were closely monitored, and electrolytes corrected :sodium and magnesium. Prior to discharge BUN from 27 down to 14 and creatinine 0.7 Patient counseled on abstinence from illicit street drugs. All environmental consultant had assessed and agreed that patient was medically stable for discharge to an outpatient disposition. FINAL DIAGNOSES: Possible sepsis Bilateral middle fingers cellulitis Bilateral middle fingers abscesses with MRSA and Strep group B Status post bilateral hand exploration, incision and drainage of middle fingers abscesses, and wounds debridement and washout Suspected osteomyelitis Diabetes mellitus with hyperglycemia Amphetamine abuse Homelessness Electrolyte abnormalities hyponatremia hypomagnesemia DISCHARGE MEDICATIONS: See Medication Reconciliation list. DISCHARGE INSTRUCTIONS: Patient was discharged to outpatient disposition. Patient to follow-up with the [facility] for blood sugar management. Patient to follow-up with Dr. Ortiz for Lissette drain removal. Patient was encouraged to complete antibiotics course as outlined in medication reconciliation list I have been assigned to dictate discharge summary for this account. I was not involved in the patient's management. Ioana Childs NP Dec 30, 2019 16:50
== END 2019-12-29 14:12 | disposition home or self-care (01) | DRG 720 ==
LOC: EMR 10:02 → 4E 10:23 → EDBEDREQ 13:00 → 4E 12-25 15:28
PROC: 0X9K0ZZ Drainage of Left Hand, Open Approach (ICD-10-PCS; principal; 2019-12-24)
PROC: 0X9J0ZZ Drainage of Right Hand, Open Approach (ICD-10-PCS; 2019-12-24)
DX: A41.9 Sepsis, unspecified organism (principal); E11.65 Type 2 diabetes mellitus with hyperglycemia; L03.012 Cellulitis of left finger; L03.011 Cellulitis of right finger; L02.512 Cutaneous abscess of left hand; L02.511 Cutaneous abscess of right hand; B95.62 Methicillin resistant Staphylococcus aureus infection as the cause of diseases classified elsewhere; M86.8X4 Other osteomyelitis, hand; M86.9 Osteomyelitis, unspecified; F15.10 Other stimulant abuse, uncomplicated; Z59.0 Homelessness; E87.1 Hypo-osmolality and hyponatremia; E83.42 Hypomagnesemia
CPT/HCPCS: 36415; 80048; 80202; 83735; 85025; 85610; 85730; 87040; 87070; 87075; 87081; 87181; 87205; 94003; 94150; 96361; 96365; 96375; 99285; J1815; J2405; J7030

== ENCOUNTER 2019-12-30 22:54 | Emergency (ER) | payer MEDICAID ==
[~2019-12-30] VITALS: Ht 160 cm; Wt 72.6 kg
[2019-12-30 23:06] VITALS: BP 105/69
--- NOTE | 2019-12-30 23:06 | NUR ---
ED Nurse Note: Pt ambulated into ED [place] left hip pain and headache x1 hr ago S/P fall. Pt stated she landed on her back and hurt left hip. Pt also reports bilateral hand pain and swelling after having a surgery at [facility] 2 days ago.
--- NOTE | 2019-12-30 23:15 | NUR ---
ED Nurse Note: ERMD at bedside
--- NOTE | 2019-12-30 23:38 | NUR ---
ED Nurse Note: pt taken to CT in stable condition, VSS no ss of distress noted.
--- NOTE | 2019-12-30 23:58 | NUR ---
ED Nurse Note: PT returned from CT in stable condition VSS no ss of distress noted.
--- NOTE | 2019-12-31 00:28 | Diagnostic Imaging Report ---
Indications: . Left-sided head after falling, head pain Technique: Spiral acquisitions obtained through the brain. Angled axial and coronal 5 x 5 mm slices were reconstructed. Total dose length product 1152 mGycm. CTDI vol(s) 53 mGy. Dose reduction achieved using automated exposure control Comparison: 03/18/2019 Findings: No acute intracranial hemorrhage or edema. No mass effect nor midline shift. Normal marques-white differentiation normal size ventricles and extra axial CSF spaces. Intact calvarium. Mastoids are clear. Visualized orbits and sinuses are unremarkable. Impression: Negative This agrees with the preliminary interpretation provided overnight by [facility] service. The CT scanner at [facility] is accredited by the [employer] and the scans are performed using protocols designed to limit radiation exposure to as low as reasonably achievable to attain images of sufficient resolution adequate for diagnostic evaluation.
--- NOTE | 2019-12-31 00:50 | NUR ---
ED Nurse Note: Pt dressings changed bilaterally per ERMD
[2019-12-31] MEDS ORDERED: Tylenol #3 tab (300mg/30mg) ORAL ONE (01:00)
[2019-12-31] MEDS ORDERED: TYLENOL EXTRA500 MG ORAL (01:02)
[2019-12-31 01:06] VITALS: BP 112/72
--- NOTE | 2019-12-31 01:06 | NUR ---
ER DISCHARGE NOTE: Patient is cleared to be discharged home per ERMD, pt is aox4, on room air, with stable vital signs. pt was given dc and prescription instructions, pt was able to verbalize understanding, pt id band remoevd. pt is able to ambulate with steady gait. pt took all belongings. pt given food and clothing weather appropriate. PT given list of shelters.
--- NOTE | 2019-12-31 04:07 | Emergency Room Report ---
History of Present Illness General Chief Complaint: Pain Source: Patient Present Illness HPI 29-year-old female presents for evaluation. States that earlier today she fell outside and hit her head and landed on her left hip. States she feels headache with dizziness and nausea. Pain is dull, 9 out of 10, nonradiating. Denies any other injuries. States she was just discharged from here for "surgery" to her fingers. Has wraps on her hands. States the wraps are wet because she was in the rain. States she is having pain. No other aggravating relieving factors. Denies any other associated symptoms Allergies: Coded Allergies: No Known Allergies (Unverified , 04/18/19) COVID-19 Screening Contact w/high risk pt: No Recent Travel to affected area: No Experienced COVID-19 symptoms?: No Patient History Past Surgical History: none Pertinent Family History: none Social History: Denies: smoking, alcohol use, drug use Last Menstrual Period: 10/2019 Now: No Immunizations: UTD Reviewed Nursing Documentation: PMH: Agreed; PSxH: Agreed Nursing Documentation-PMH Hx Cardiac Problems: No Hx Diabetes: Yes Hx Cancer: No Hx Gastrointestinal Problems: No Hx Neurological Problems: No Review of Systems All Other Systems: negative except mentioned in HPI Physical Exam Vital Signs Date Time Temp Pulse Resp B/P (MAP) Pulse Ox O2 Delivery O2 Flow Rate FiO2 12/30/19 22:56 97.9 111 19 105/69 (81) 100 12/30/19 23:06 Room Air Sp02 EP Interpretation: reviewed, normal General Appearance: no apparent distress, alert, GCS 15, non-toxic Head: normocephalic, atraumatic Eyes: bilateral eye normal inspection, bilateral eye PERRL ENT: hearing grossly normal, normal pharynx, no angioedema, normal voice Neck: full range of motion, supple/symm/no masses Respiratory: chest non-tender, lungs clear, normal breath sounds, speaking full sentences Cardiovascular #1: regular rate, rhythm, no edema Cardiovascular #2: 2+ carotid (R), 2+ carotid (L), 2+ radial (R), 2+ radial (L) , 2+ dorsalis pedis (R), 2+ dorsalis pedis (L) Gastrointestinal: normal bowel sounds, non tender, soft, non-distended, no guarding, no rebound Rectal: deferred Genitourinary: normal inspection, no CVA tenderness Musculoskeletal: back normal, normal range of motion, gait/station normal, non- tender Neurologic: alert, motor strength/tone normal, oriented x3, sensory intact, responsive, speech normal Psychiatric: judgement/insight normal, memory normal, mood/affect normal, no suicidal/homicidal ideation Reflexes: 3+ bicep (R), 3+ bicep (L), 3+ tricep (R), 3+ tricep (L), 3+ knee (R) , 3+ knee (L) Skin: other - lissette drains on bilateral hands intact. no surrounding erythema /induration. no discharge Lymphatic: no adenopathy Medical Decision Making Homeless Attestation I, The treating physician Dr. Gasca, have assessed and agrees that patient is medically stable for discharge to an outpatient disposition. Diagnostic Impression: Primary Impression: Visit for wound check Additional Impressions: Contusion, hip Qualified Codes: S70.02XA - Contusion of left hip, initial encounter Head injury Qualified Codes: S09.90XA - Unspecified injury of head, initial encounter ER Course Hospital Course 29-year-old F presents to ED complaining of L hip and headache s/p fall Differential diagnoses include: Fracture, dislocation, sprain, contusion Clinical course Patient placed on stretcher. After initial history and physical, I ordered pain medications and Xrays of L hip, CT head Xrays prelim read shows no acute fracture/dislocation. CT head urnemarkable Reviewed EMR. Patient was recently admitted for cellulitis to the fingers. Concern for osteomyelitis. Evaluated by Dr. Ortiz who performed abscess drainage and lissette drains placed. dressigns removed to both hands. There is a [place] drain noted bilaterally which are intact. Surrounding erythema or discharge. Hands rewrapped. Pauly findings with patient. Will discharge. Homeless checklist completed. Recommend close follwup with Dr Ortiz. recommend completing her antibiotics as prescribed Diagnosis - visit for wound check, hip contusion, head injury Stable and discharged to home. Followup with PMD. Return to ED if symptoms recur or worsen Other X-Ray Diagnostic Results Other X-Ray Diagnostic Results : X-Ray ordered: L hip # of Views/Limited Vs Complete: 3 View Indication: Pain EP Interpretation: Yes Interpretation: no dislocation, no soft tissue swelling, no fractures Impression: No acute disease Electronically Signed by: Electronically signed by Aaron Gasca MD CT/MRI/US Diagnostic Results CT/MRI/US Diagnostic Results : Imaging Test Ordered: CT head Impression no acute process Last Vital Signs Date Time Temp Pulse Resp B/P (MAP) Pulse Ox O2 Delivery O2 Flow Rate FiO2 12/31/19 01:06 97.9 107 20 112/72 100 Room Air Status: improved Disposition: HOME, SELF-CARE Condition: Stable Scripts Acetaminophen* (TYLENOL EXTRA STRENGTH*) 500 Mg Tablet 500 MG ORAL Q8H PRN for Prn Headache/Temp > 101, #30 TAB 0 Refills Prov: Aaron Gasca MD 12/31/19 Referrals: David Ortiz MD NOT CHOSEN IPA/,REFERRING (PCP) Angel Leroy [facility] Patient Instructions: Head Injury, Adult, [id number], Wound Check Additional Instructions: followup with Dr Ortiz in his office to have those drains removed. continue the antibiotics as prescribed. Aaron Gasca MD Dec 31, 2019 04:07
--- NOTE | 2019-12-31 10:13 | Diagnostic Imaging Report ---
Indication: Pain in left hip after falling Technique: 2 views of the left hip, one view of the pelvis Comparison: 03/18/2019 Findings: No acute fractures. No dislocations. The joint spaces are preserved. No significant interim change Impression: Negative
== END 2019-12-31 01:06 | disposition home or self-care (01) ==
LOC: EMR 23:15
DX: S70.02XA Contusion of left hip, initial encounter (principal); S09.90XA Unspecified injury of head, initial encounter; W19.XXXA Unspecified fall, initial encounter; Y92.9 Unspecified place or not applicable; E11.9 Type 2 diabetes mellitus without complications; R42 Dizziness and giddiness; R11.0 Nausea; L03.114 Cellulitis of left upper limb; L03.113 Cellulitis of right upper limb
CPT/HCPCS: 70450; 73502; Z7502; 99284